=== PATIENT | female | born 1955 | race Caucasian/White ===

== ENCOUNTER 2020-07-18 14:39 | Emergency (ER) | payer MEDICARE, OTHER, SELFPAY ==
[2020-07-18 14:43] VITALS: BP 154/96; PULSE 87; RESP 22; TEMP 37.3; O2SAT 98
[2020-07-18 16:06] VITALS: BP 153/81; PULSE 86; RESP 16; TEMP 37; O2SAT 99
--- NOTE | 2020-07-18 16:07 | ED_ITS ---
HPI - Back Pain/Injury <Dottie Fung MD - Last Filed: 07/18/20 18:06> General Chief Complaint: Back Pain/Injury Stated Complaint: SEVERE PAIN LOWER BACK Time Seen by Provider: 07/18/20 16:07 History of Present Illness HPI Narrative: 65-year-old woman with a history of hypertension presents with left flank and lower quadrant pain. Symptoms began approximately 2 and half days ago in her low back and she attributed this to her chronic back pain. It began to radiate to her flank and then about 7:00 pm last night grew increasingly more painful to the point she was unable to sleep. It now is localizing to the left lower quadrant and giving her a feeling of tenesmus. She notes that she did have a normal bowel movement yesterday morning. She has a history of intermittent diarrhea and constipation. Had a colonoscopy that was unremarkable in 2018. She denies fever, chills, cough, chest pain, dyspnea, orthopnea. She does note vomiting that started last night that seem to be associated with pain. She describes no headache or neurologic symptoms Related Data Home Medications Medication Instructions Recorded Confirmed aspirin 81 mg tablet,delayed 81 mg PO DAILY 07/18/20 07/18/20 release lisinopril 20 mg tablet 20 mg PO DAILY 07/18/20 07/18/20 Previous Rx's Medication Instructions Recorded ciprofloxacin HCl 500 mg PO BID #20 tab 07/18/20 metronidazole [Flagyl] 500 mg PO Q8H #30 tab 07/18/20 oxycodone-acetaminophen 1 tab PO Q6H PRN #10 tab 07/18/20 Allergies Allergy/AdvReac Type Severity Reaction Status Date / Time No Known Drug Allergies Allergy Unverified 07/18/20 10:21 <Theodore Perez DO - Last Filed: 07/18/20 19:55> General Source: patient Review of Systems <Dottie Fung MD - Last Filed: 07/18/20 18:06> Review of Systems Narrative: Remainder of review is otherwise unremarkable except as noted in the HPI Patient History <Dottie Fung MD - Last Filed: 07/18/20 18:06> Medical History (Updated 07/18/20 @ 18:05 by Dottie Fung MD) History of ectopic Hypertension Social History Smoking Status: Former smoker additional social history: QUIT DATE SMOKIN05/07/1998 <Theodore Perez DO - Last Filed: 07/18/20 19:55> Smoking Status: Former smoker alcohol intake frequency: a few times a week Exam <Dottie Fung MD - Last Filed: 07/18/20 18:06> Narrative Exam Narrative: General: Healthy appearing, in no acute distress. Able to give a complete and coherent history. Well-nourished well-developed HEENT: Moist mucous membranes, normal sclera with reactive pupils, Respiratory: Lungs are clear to auscultation, no wheezing no rales no rhonchi. Full and symmetrical air movement Cardiac: Regular rate and rhythm no murmurs no bruits Abdomen: Soft, significantly tender in the left lower quadrant without rebound or guarding, hypoactive bowel tones, no flank pain no paraspinous muscle spasm and no rashes over the lower abdomen or back. Skin: Warm and dry, no rashes Neurologic: Grossly neurologically intact with no obvious asymmetries or abnormalities Extremities: No trauma, well perfused Psych: Cooperative, appropriate insight and affect Initial Vital Signs Initial Vital Signs: Vital Signs Temperature 99.2 F 07/18/20 14:43 Pulse Rate 87 07/18/20 14:43 Respiratory Rate 22 07/18/20 14:43 Blood Pressure 154/96 H 07/18/20 14:43 Pulse Oximetry 98 07/18/20 14:43 <Theodore Perez DO - Last Filed: 07/18/20 19:55> Initial Vital Signs Initial Vital Signs: Vital Signs Temperature 99.2 F 07/18/20 14:43 Pulse Rate 87 07/18/20 14:43 Respiratory Rate 22 07/18/20 14:43 Blood Pressure 154/96 H 07/18/20 14:43 Pulse Oximetry 98 07/18/20 14:43 Course <Dottie Fung MD - Last Filed: 07/18/20 18:06> Orders Ordered: ED Orders 07/18/20 16:25 Complete Blood Count AUTO DIFF Stat Comprehensive Metabolic Panel Stat Lipase Stat Magnesium Stat 07/18/20 16:35 CT abdomen pelvis w con Stat Discontinued Medications Hydromorphone HCl (Hydromorphone 0.5 Mg Inj) 0.5 mg IV Q15MIN PRN PRN Reason: Pain, Last Admin: 07/18/20 16:44 Dose: 0.5 mg Documented by: SHASTA Sodium Chloride (Normal Saline 0.9%) 1,000 mls @ 1,000 mls/hr IV BOLUS ONE Stop: 07/18/20 17:31 Last Infusion: 07/18/20 17:45 Dose: 0 mls/hr Documented by: Admin: 07/18/20 16:44 Dose: 1,000 mls/hr Documented by: SHASTA Levofloxacin (Levaquin) 750 mg in 150 mls @ 100 mls/hr IV NOW ONE Stop: 07/18/20 18:42 Last Infusion: 07/18/20 18:46 Dose: 0 mls/hr Documented by: Admin: 07/18/20 17:22 Dose: 100 mls/hr Documented by: SHASTA Ondansetron HCl (Ondansetron 4 Mg/2 Ml Inj) 4 mg IV NOW ONE Stop: 07/18/20 16:33 Last Admin: 07/18/20 16:44 Dose: 4 mg Documented by: SHASTA Oxycodone/Acetaminophen (Oxycodone/Apap 5/325 Prepack) 1 bottle MISC SEEINSTR ONE Stop: 07/18/20 18:06 Last Admin: 07/18/20 18:09 Dose: 1 bottle Documented by: DONNELL Vital Signs Vital signs: Vital Signs - 8 hr 07/18/20 14:43 07/18/20 16:06 07/18/20 18:00 Temperature 99.2 F 98.6 F Pulse Rate 87 86 80 Respiratory Rate 22 16 16 Blood Pressure 154/96 H 153/81 H 146/72 H Pulse Oximetry 98 99 98 <Theodore Perez DO - Last Filed: 07/18/20 19:55> Orders Ordered: ED Orders 07/18/20 16:25 Complete Blood Count AUTO DIFF Stat Comprehensive Metabolic Panel Stat Lipase Stat Magnesium Stat 07/18/20 16:35 CT abdomen pelvis w con Stat Discontinued Medications Hydromorphone HCl (Hydromorphone 0.5 Mg Inj) 0.5 mg IV Q15MIN PRN PRN Reason: Pain, Last Admin: 07/18/20 16:44 Dose: 0.5 mg Documented by: SHASTA Sodium Chloride (Normal Saline 0.9%) 1,000 mls @ 1,000 mls/hr IV BOLUS ONE Stop: 07/18/20 17:31 Last Infusion: 07/18/20 17:45 Dose: 0 mls/hr Documented by: Admin: 07/18/20 16:44 Dose: 1,000 mls/hr Documented by: SHASTA Levofloxacin (Levaquin) 750 mg in 150 mls @ 100 mls/hr IV NOW ONE Stop: 07/18/20 18:42 Last Infusion: 07/18/20 18:46 Dose: 0 mls/hr Documented by: Admin: 07/18/20 17:22 Dose: 100 mls/hr Documented by: SHASTA Ondansetron HCl (Ondansetron 4 Mg/2 Ml Inj) 4 mg IV NOW ONE Stop: 07/18/20 16:33 Last Admin: 07/18/20 16:44 Dose: 4 mg Documented by: SHASTA Oxycodone/Acetaminophen (Oxycodone/Apap 5/325 Prepack) 1 bottle MISC SEEINSTR ONE Stop: 07/18/20 18:06 Last Admin: 07/18/20 18:09 Dose: 1 bottle Documented by: DONNELL Vital Signs Vital signs: Vital Signs - 8 hr 07/18/20 14:43 07/18/20 16:06 07/18/20 18:00 Temperature 99.2 F 98.6 F Pulse Rate 87 86 80 Respiratory Rate 22 16 16 Blood Pressure 154/96 H 153/81 H 146/72 H Pulse Oximetry 98 99 98 MDM - Back Pain/Injury <Dottie Fung MD - Last Filed: 07/18/20 18:06> Medical Records Attestation: I reviewed the patient's medical records. Lab Data Attestation: I reviewed the patient's lab results. Result diagrams: 07/18/20 16:25 07/18/20 16:25 Labs: Lab Results 07/18/20 07/18/20 07/18/20 Range/Units 16:25 16:25 16:25 WBC 13.7 H (4.5-11.0) X10^3/uL RBC 4.30 (4.0-5.2) X10^6/uL Hgb 14.2 (12.0-16.0) g/dL Hct 42.7 (36-46) % MCV 99.4 (80-100) fL MCH 33.1 (26-34) PG MCHC 33.3 (30-36) % RDW 13.2 (11.6-14.8) % Plt Count 291 (150-400) X10^3/uL Neut % (Auto) 79.5 H (50-75) % Lymph % (Auto) 11.1 L (25-40) % Bladen % (Auto) 9.0 (3-14) % Eos % (Auto) 0.1 L (2-4) % Baso % (Auto) 0.3 (0-2) % Neut # (Auto) 04219 H (1918-9987) /uL Lymph # (Auto) 1500 (7857-8785) /uL Bladen # (Auto) 1200 H (0-900) /uL Eos # (Auto) 0 (0-450) /uL Baso # (Auto) 0 (0-100) /uL Sodium 135 L (137-145) mmol/L Potassium 3.6 (3.4-5.1) mmol/L Chloride 99 (98-107) mmol/L Carbon Dioxide 28 (22-32) mmol/L BUN 23 H (7-17) mg/dL Creatinine 0.63 (0.52-1.04) mg/dL Estimated GFR > 60.0 (>60) mL/min BUN/Creatinine Ratio 36.5 H (6-22) Glucose 107 (80-110) mg/dL Calcium 9.6 (8.4-10.2) mg/dL Magnesium (1.6-2.3) mg/dL Total Bilirubin 0.8 (0.2-1.3) mg/dL AST 21 (14-36) IU/L ALT 14 (<35) IU/L Alkaline Phosphatase 116 (38-126) U/L Total Protein 7.6 (6.3-8.2) g/dL Albumin 4.1 (3.5-5.0) g/dL Globulin 3.5 (1.7-4.1) g/dL Albumin/Globulin Ratio 1.2 (1.0-2.8) Lipase 39 (23-300) U/L 04 Range/Units 16:25 WBC (4.5-11.0) X10^3/uL RBC (4.0-5.2) X10^6/uL Hgb (12.0-16.0) g/dL Hct (36-46) % MCV (80-100) fL MCH (26-34) PG MCHC (30-36) % RDW (11.6-14.8) % Plt Count (150-400) X10^3/uL Neut % (Auto) (50-75) % Lymph % (Auto) (25-40) % Bladen % (Auto) (3-14) % Eos % (Auto) (2-4) % Baso % (Auto) (0-2) % Neut # (Auto) (3979-4776) /uL Lymph # (Auto) (5757-4736) /uL Bladen # (Auto) (0-900) /uL Eos # (Auto) (0-450) /uL Baso # (Auto) (0-100) /uL Sodium (137-145) mmol/L Potassium (3.4-5.1) mmol/L Chloride (98-107) mmol/L Carbon Dioxide (22-32) mmol/L BUN (7-17) mg/dL Creatinine (0.52-1.04) mg/dL Estimated GFR (>60) mL/min BUN/Creatinine Ratio (6-22) Glucose (80-110) mg/dL Calcium (8.4-10.2) mg/dL Magnesium 1.9 (1.6-2.3) mg/dL Total Bilirubin (0.2-1.3) mg/dL AST (14-36) IU/L ALT (<35) IU/L Alkaline Phosphatase (38-126) U/L Total Protein (6.3-8.2) g/dL Albumin (3.5-5.0) g/dL Globulin (1.7-4.1) g/dL Albumin/Globulin Ratio (1.0-2.8) Lipase (23-300) U/L Imaging Data CT scan - abdomen/pelvis: Radiologist's Impression: FINDINGS: Image quality: Excellent. ABDOMEN: Lung bases: Lung bases are clear. Heart size is normal. Solid organs: Liver is normal in size and enhancement. Gallbladder appears normal. Biliary system is non dilated. Pancreas enhances normally. Spleen is normal in size and enhancement. No adrenal nodules. Kidneys demonstrate normal size and enhancement, without hydronephrosis. Peritoneum and bowel: Multiple diverticula are seen in the sigmoid colon. There is bowel wall thickening within the sigmoid colon with mild inflammatory fat stranding along the inferior portion. A multi-septated cystic lesion is seen in the left adnexa adjacent to the inflamed portion of the sigmoid colon measuring 4.7 x 3.9 x 3.4 cm, which may represent reactive inflammation in the left ovary versus a small abscess. No normal appearing left ovary is seen separate from the lesion. There is no pneumoperitoneum. There are no signs of bowel obstruction. The appendix is not definitely visualized, but there are no secondary signs of acute appendicitis. Nodes and vessels: No retroperitoneal or mesenteric adenopathy by size criteria. Aorta and inferior vena cava are normal in size. Miscellaneous: No ventral hernias. PELVIS: Genitourinary: Bladder wall thickness is normal. The uterus is normal in size. The right ovary appears normal. Miscellaneous: No inguinal hernias or adenopathy. Bones: No suspicious bony lesions. No vertebral body compression fractures. IMPRESSION: Acute sigmoid diverticulitis. A multi-septated 4.7 x 3.9 x 3.4 cm lesion in the left adnexa adjacent to the sigmoid colon most likely represents the left ovary (with possible reactive inflammation) versus abscess formation. No pneumoperitoneum. Dictated by: Marshall Capmbell M.D. on 07/18/2020 at 17:25 MDM Narrative Medical decision making narrative: 65-year-old woman with 2 and half days of increasing left lower quadrant pain loading and a sense of tenesmus. Mildly elevated white count. No signs of sepsis. Given the localization of pain to the left lower quadrant I do not suspect that this is simply musculoskeletal back pain. She had no urine in it urine dip at the walk-in clinic so kidney stone is less likely. No UTI or pyelonephritis. Most likely explanation for her symptoms is diverticulitis. Will start her on Levaquin while waiting for confirmatory CT scan. CT scan does confirm diverticulitis. There is also an interesting mention of a multi-septated lesion in the left adnexa. This will need follow-up and have reviewed with patient. She will be discharged home with a small course of pain medication, Flagyl and Cipro. <Theodore Perez DO - Last Filed: 07/18/20 19:55> Lab Data Labs: Lab Results 07/18/20 07/18/20 07/18/20 Range/Units 16:25 16:25 16:25 WBC 13.7 H (4.5-11.0) X10^3/uL RBC 4.30 (4.0-5.2) X10^6/uL Hgb 14.2 (12.0-16.0) g/dL Hct 42.7 (36-46) % MCV 99.4 (80-100) fL MCH 33.1 (26-34) PG MCHC 33.3 (30-36) % RDW 13.2 (11.6-14.8) % Plt Count 291 (150-400) X10^3/uL Neut % (Auto) 79.5 H (50-75) % Lymph % (Auto) 11.1 L (25-40) % Bladen % (Auto) 9.0 (3-14) % Eos % (Auto) 0.1 L (2-4) % Baso % (Auto) 0.3 (0-2) % Neut # (Auto) 80007 H (2981-8765) /uL Lymph # (Auto) 1500 (8325-8115) /uL Bladen # (Auto) 1200 H (0-900) /uL Eos # (Auto) 0 (0-450) /uL Baso # (Auto) 0 (0-100) /uL Sodium 135 L (137-145) mmol/L Potassium 3.6 (3.4-5.1) mmol/L Chloride 99 (98-107) mmol/L Carbon Dioxide 28 (22-32) mmol/L BUN 23 H (7-17) mg/dL Creatinine 0.63 (0.52-1.04) mg/dL Estimated GFR > 60.0 (>60) mL/min BUN/Creatinine Ratio 36.5 H (6-22) Glucose 107 (80-110) mg/dL Calcium 9.6 (8.4-10.2) mg/dL Magnesium (1.6-2.3) mg/dL Total Bilirubin 0.8 (0.2-1.3) mg/dL AST 21 (14-36) IU/L ALT 14 (<35) IU/L Alkaline Phosphatase 116 (38-126) U/L Total Protein 7.6 (6.3-8.2) g/dL Albumin 4.1 (3.5-5.0) g/dL Globulin 3.5 (1.7-4.1) g/dL Albumin/Globulin Ratio 1.2 (1.0-2.8) Lipase 39 (23-300) U/L 07/18/20 Range/Units 16:25 WBC (4.5-11.0) X10^3/uL RBC (4.0-5.2) X10^6/uL Hgb (12.0-16.0) g/dL Hct (36-46) % MCV (80-100) fL MCH (26-34) PG MCHC (30-36) % RDW (11.6-14.8) % Plt Count (150-400) X10^3/uL Neut % (Auto) (50-75) % Lymph % (Auto) (25-40) % Bladen % (Auto) (3-14) % Eos % (Auto) (2-4) % Baso % (Auto) (0-2) % Neut # (Auto) (5651-2307) /uL Lymph # (Auto) (3817-5145) /uL Bladen # (Auto) (0-900) /uL Eos # (Auto) (0-450) /uL Baso # (Auto) (0-100) /uL Sodium (137-145) mmol/L Potassium (3.4-5.1) mmol/L Chloride (98-107) mmol/L Carbon Dioxide (22-32) mmol/L BUN (7-17) mg/dL Creatinine (0.52-1.04) mg/dL Estimated GFR (>60) mL/min BUN/Creatinine Ratio (6-22) Glucose (80-110) mg/dL Calcium (8.4-10.2) mg/dL Magnesium 1.9 (1.6-2.3) mg/dL Total Bilirubin (0.2-1.3) mg/dL AST (14-36) IU/L ALT (<35) IU/L Alkaline Phosphatase (38-126) U/L Total Protein (6.3-8.2) g/dL Albumin (3.5-5.0) g/dL Globulin (1.7-4.1) g/dL Albumin/Globulin Ratio (1.0-2.8) Lipase (23-300) U/L Discharge Plan Departure Patient Disposition: Home Clinical Impression: Diverticulitis, Adnexal cyst Instructions: DI for Diverticulitis Activity Restrictions/Additional Instructions: Thank you for coming in today You do in fact have diverticulitis. We started you with a 24 hour antibiotic, Levaquin. You do need to pickle maker both the Cipro and the Flagyl, both antibiotics and complete 10 days of both You can use 1-2 Percocet every 6 hours as needed for severe pain. Please note that this can cause constipation which can make the diverticulitis a bit worse. Use stool softeners if necessary. The CT scan mentioned and adnexal cystic abnormality'this is in the area around her ovary and side of the uterus. This may be related to the diverticulitis but it is a bit unusual. It will need follow-up with a pelvic ultrasound once the diverticulitis is completely cleared. Please talk to your primary care doctor about this. If you have worsening pain, fevers inability to have a bowel movement at all or new or developing symptoms please feel free to return to the emergency department Prescriptions: New metronidazole [Flagyl] 500 mg tablet 500 mg PO Q8H Qty: 30 RF: 0 ciprofloxacin HCl 500 mg tablet 500 mg PO BID Qty: 20 RF: 0 oxycodone-acetaminophen 5-325 mg tablet 1 tab PO Q6H PRN (Reason: pain) Qty: 10 RF: 0 No Action lisinopril 20 mg tablet 20 mg PO DAILY RF: 0 aspirin [Adult Low Dose Aspirin] 81 mg tablet,delayed release (DR/EC) 81 mg PO DAILY RF: 0 Referrals: Isabela Walker PA-C [Primary Care Provider] -
--- NOTE | 2020-07-18 16:35 | DI.CT.S_ITS ---
PROCEDURE: CT ABDOMEN PELVIS W CON INDICATIONS: RLQ pain TECHNIQUE: After the administration of intravenous contrast, 5 mm thick sections acquired from the diaphragm to the symphysis. 5 mm coronal and sagittal reformats were acquired. For radiation dose reduction, the following was used: automated exposure control, adjustment of mA and/or kV according to patient size. COMPARISON: None. FINDINGS: Image quality: Excellent. ABDOMEN: Lung bases: Lung bases are clear. Heart size is normal. Solid organs: Liver is normal in size and enhancement. Gallbladder appears normal. Biliary system is non dilated. Pancreas enhances normally. Spleen is normal in size and enhancement. No adrenal nodules. Kidneys demonstrate normal size and enhancement, without hydronephrosis. Peritoneum and bowel: Multiple diverticula are seen in the sigmoid colon. There is bowel wall thickening within the sigmoid colon with mild inflammatory fat stranding along the inferior portion. A multi-septated cystic lesion is seen in the left adnexa adjacent to the inflamed portion of the sigmoid colon measuring 4.7 x 3.9 x 3.4 cm, which may represent reactive inflammation in the left ovary versus a small abscess. No normal appearing left ovary is seen separate from the lesion. There is no pneumoperitoneum. There are no signs of bowel obstruction. The appendix is not definitely visualized, but there are no secondary signs of acute appendicitis. Nodes and vessels: No retroperitoneal or mesenteric adenopathy by size criteria. Aorta and inferior vena cava are normal in size. Miscellaneous: No ventral hernias. PELVIS: Genitourinary: Bladder wall thickness is normal. The uterus is normal in size. The right ovary appears normal. Miscellaneous: No inguinal hernias or adenopathy. Bones: No suspicious bony lesions. No vertebral body compression fractures. IMPRESSION: Acute sigmoid diverticulitis. A multi-septated 4.7 x 3.9 x 3.4 cm lesion in the left adnexa adjacent to the sigmoid colon most likely represents the left ovary (with possible reactive inflammation) versus abscess formation. No pneumoperitoneum. Dictated by: Marshall Campbell M.D. on 07/18/2020 at 17:25 Approved by: Marshall Cambpell M.D. on 07/18/2020 at 17:34
[2020-07-18] MEDS: HYDROMORPHONE 0.5 MG INJ IV (16:44)
[2020-07-18] MEDS: ONDANSETRON 4 MG/2 ML INJ IV (16:44)
[2020-07-18] MEDS: SODIUM CHLORIDE 0.9% 1,000 ML 1000 ML IV (16:44)
[2020-07-18 16:46] LABS: Add Manual Diff / Slide Review NO; Basophils Absolute Auto 0 /uL (0-100); Basophils Percent Auto 0.3 % (0-2); Eosinophils Absolute Auto 0 /uL (0-450); Eosinophils Percent Auto 0.1 % (2-4); Hematocrit 42.7 % (36-46); Hemoglobin 14.2 g/dL (12.0-16.0); Lymphocytes Absolute Auto 1500 /uL (1100-4500); Lymphocytes Percent Auto 11.1 % (25-40); Mean Corpuscular HGB Conc 33.3 % (30-36); Mean Corpuscular Hemoglobin 33.1 PG (26-34); Mean Corpuscular Volume 99.4 fL (80-100); Monocytes Absolute Auto 1200 /uL (0-900); Neutrophils Absolute Auto 10900 /uL (1500-7000); Neutrophils Percent Auto 79.5 % (50-75); Platelet Count 291 X10^3/uL (150-400); Red Cell Distribution Width 13.2 % (11.6-14.8); White Blood Cell Count 13.7 X10^3/uL (4.5-11.0)
[2020-07-18 16:51] LABS: Alanine Aminotransferase 14 IU/L (<35); Albumin 4.1 g/dL (3.5-5.0); Albumin Globulin Ratio 1.2 (1.0-2.8); Alkaline Phosphatase 116 U/L (38-126); Aspartate Aminotransferase 21 IU/L (14-36); BUN Creatinine Ratio 36.5 (6-22); Bilirubin Total 0.8 mg/dL (0.2-1.3); Blood Urea Nitrogen 23 mg/dL (7-17); Calcium 9.6 mg/dL (8.4-10.2); Carbon Dioxide 28 mmol/L (22-32); Chloride 99 mmol/L (98-107); Estimated Glomerular Filt Rate > 60.0 mL/min (>60); Globulin 3.5 g/dL (1.7-4.1); Glucose 107 mg/dL (80-110); HEMOLYSIS < 15 (0-50); Potassium 3.6 mmol/L (3.4-5.1); Sodium 135 mmol/L (137-145); Total Protein 7.6 g/dL (6.3-8.2)
[2020-07-18 16:58] LABS: Lipase 39 U/L (23-300)
[2020-07-18 16:59] LABS: Magnesium 1.9 mg/dL (1.6-2.3)
[2020-07-18] MEDS: levoFLOXacin 750 MG/150 ML PIGGYBACK 100 MG IV (17:22)
[2020-07-18 18:00] VITALS: BP 146/72; PULSE 80; RESP 16; O2SAT 98
[2020-07-18] MEDS: OXYCODONE/APAP 5/325 PREPACK 1 BOTTLE MISC (18:09)
== END 2020-07-18 18:54 | disposition home or self-care (01) ==
PROVIDERS: Emergency Provider Emergency Medicine; PCP Physician Assistant
DX: K57.92 Diverticulitis of intestine, part unspecified, without perforation or abscess without bleeding (principal); N94.9 Unspecified condition associated with female genital organs and menstrual cycle; M54.5 Low back pain
CPT/HCPCS: 36415; 74177; 80053; 83690; 83735; 85025; 87086; 99284; J1170; J1956; J2405; Q9967

== ENCOUNTER → 2020-08-01 10:49 | Outpatient (CLI) | payer MEDICARE, OTHER, SELFPAY ==
--- NOTE | 2020-08-01 10:52 | DI.US.S_ITS ---
PROCEDURE: US PELVIC COMPLETE INDICATIONS: LEFT ADNEXAL CYST ON RECENT CT TECHNIQUE: Real-time scanning was performed of the pelvic organs, with image documentation. Additional endovaginal scanning was necessary due to incomplete visualization of the adnexal and endometrial structures by transabdominal scanning. COMPARISON: [facility], CT, CT ABDOMEN PELVIS W CON, 07/18/2020, 17:00. FINDINGS: Uterus: Uterus is normal in size at 5.6 x 3 x 3.7 cm. The endometrial stripe is abnormal, with an apparent irregular echogenic mass that measures 18 x 15 x 17 mm. Shadowing can be seen. Ovaries: The right ovary measures 1.8 x 1.2 x 0.9 cm. The left ovary measures 2.4 x 1.9 x 2 cm. The ovaries have a normal sonographic appearance. No adnexal masses are seen. The previously seen left adnexal mass is not appreciated on the current study. Other: No pathologic free abdominal or pelvic fluid. IMPRESSION: The previously seen left adnexal mass seen by CT is not appreciated on these images. Within the endometrial stripe, there is an irregular mass with shadowing. While this may be related to a fibroid, differential diagnosis also includes a uterine or endometrial mass. If it would be helpful for clinical management decision making, please consider a dedicated gynecological protocol MRI (without and with contrast) for further evaluation (assuming that there is no contraindication). Dictated by: Rick Hastings M.D. on 08/01/2020 at 10:47 Approved by: Rick Hastings M.D. on 08/01/2020 at 10:49
[2020-08-01 11:52] LABS: Add Manual Diff / Slide Review NO; Basophils Absolute Auto 100 /uL (0-100); Basophils Percent Auto 0.9 % (0-2); Eosinophils Absolute Auto 100 /uL (0-450); Eosinophils Percent Auto 0.9 % (2-4); Hematocrit 41.1 % (36-46); Hemoglobin 14.1 g/dL (12.0-16.0); Lymphocytes Absolute Auto 2400 /uL (1100-4500); Lymphocytes Percent Auto 26.2 % (25-40); Mean Corpuscular HGB Conc 34.2 % (30-36); Mean Corpuscular Hemoglobin 33.5 PG (26-34); Mean Corpuscular Volume 97.8 fL (80-100); Monocytes Absolute Auto 700 /uL (0-900); Monocytes Percent Auto 7.8 % (3-14); Neutrophils Absolute Auto 5800 /uL (1500-7000); Neutrophils Percent Auto 64.2 % (50-75); Platelet Count 313 X10^3/uL (150-400); Red Cell Distribution Width 12.9 % (11.6-14.8)
[2020-08-01 12:32] LABS: Alanine Aminotransferase 20 IU/L (<35); Albumin Globulin Ratio 1.2 (1.0-2.8); Alkaline Phosphatase 85 U/L (38-126); Aspartate Aminotransferase 28 IU/L (14-36); Bilirubin Total 0.3 mg/dL (0.2-1.3); Blood Urea Nitrogen 21 mg/dL (7-17); Calcium 9.7 mg/dL (8.4-10.2); Carbon Dioxide 28 mmol/L (22-32); Chloride 96 mmol/L (98-107); Estimated Glomerular Filt Rate > 60.0 mL/min (>60); Globulin 3.4 g/dL (1.7-4.1); Glucose 112 mg/dL (80-110); HEMOLYSIS < 15 (0-50); Potassium 4.1 mmol/L (3.4-5.1); Sodium 133 mmol/L (137-145); Total Protein 7.4 g/dL (6.3-8.2)
[2020-08-01 13:01] LABS: Cancer Antigen 125 9.1 U/mL (0-35)
== END ==
PROVIDERS: PCP Physician Assistant; Referring Provider Specialist; Visit Provider Specialist
DX: R93.89 Abnormal findings on diagnostic imaging of other specified body structures (principal); N94.9 Unspecified condition associated with female genital organs and menstrual cycle; I10 Essential (primary) hypertension; N94.89 Other specified conditions associated with female genital organs and menstrual cycle; K57.92 Diverticulitis of intestine, part unspecified, without perforation or abscess without bleeding
CPT/HCPCS: 36415; 76830; 76856; 80053; 85025; 86304; 86305

== ENCOUNTER → 2020-09-05 11:12 | Outpatient (CLI) | payer MEDICARE, OTHER, SELFPAY ==
[2020-09-05 11:45] LABS: COVID19 -Nasal RAPID Negative (Negative)
== END ==
PROVIDERS: PCP Physician Assistant; Visit Provider Specialist
DX: Z20.822 Contact with and (suspected) exposure to COVID-19 (principal); Z01.812 Encounter for preprocedural laboratory examination
CPT/HCPCS: 87635; C9803

== ENCOUNTER 2020-09-05 11:28 | Day surgery (SDC) | payer MEDICARE, OTHER, SELFPAY ==
[2020-08-31 10:54] VITALS: BMI 28.5
[2020-09-05] VITALS (8 sets, daily range): BP systolic 127–158; BP diastolic 75–90; PULSE 82–97; RESP 12–16; TEMP 37.2–37.4; O2SAT 93–100; BMI 28.5
--- NOTE | 2020-09-05 | PATH_ITS ---
[facility] Accession Number: [id number] . 01 Material submitted: . PART A: endometrium - ENDOMETRIAL MASS PART B: endometrium - ENDOMETRIAL CURETTINGS . 02 Diagnosis: A. Endometrial Mass: Portions of endometrium with features of cystic atrophy; negative for glandular hyperplasia, cytologic atypia, or malignancy. The majority of endometrial tissue fragments also have attached myometrium; negative for atypia or malignancy. These histologic findings are consistent with the presence of a benign leiomyoma, in the appropriate clinical setting. . B. Endometrial Curettings: Avulsed portions of squamous mucosa; negative for squamous dysplasia or malignancy. Poorly preserved glandular elements, possibly from endocervix or lower uterine segment; negative for glandular hyperplasia, glandular dysplasia, cytologic atypia, or malignancy. Please see comment. [facility] 09/08/2020 1226 Local . 02 Comment: Part B: Due to the scant nature of endometrial tissue in this biopsy, it may not be entirely labor union business representative of this patient's endometrium; additional sampling could be considered, if clinically appropriate. . 02 Electronically signed: . Patricia Dominguez MD, Pathologist NPI- [id number] . 01 Gross description: . A. Received in formalin, labeled endometrial mass and consists of multiple amador-pink partially cauterized fragments of soft tissue measuring 3.0 x 2.0 x 0.5 cm in aggregate. The specimen is entirely submitted in cassette A1. B. Received in formalin, labeled endometrial curettings and consists of multiple amador-pink fragments of soft tissue measuring 1.0 x 0.5 x 0.2 cm in aggregate. The specimen is filtered and entirely submitted in cassette B1. ([id number]) /MRV 09/06/2020 1028 Local . 02 Pathologist provided ICD-10: D25.9, N85.00 . 02 CPT . 791502, [id number] Performed at: 01 [facility] [address] [id number] MD Ismael Oscar MD Phone: [phone] Performed at: [id number] [place], [place] [id number] MD Deedee Montana MD Phone: [phone]
[2020-09-05] MEDS: LACTATED RINGERS 1,000 ML 100 ML IV (12:12)
--- NOTE | 2020-09-05 13:27 | PM.PREOP ---
Pre-operative Note COVID-19 COVID-19 status: Negative Result date/Date tested (Pos, Neg/Pending): 09/05/20 Interval Note History & Physical reviewed/Exam performed by Physician: Yes Changes to H&P: No
--- NOTE | 2020-09-05 13:50 | SUR.OPER ---
Lithotomy on padded OR bed, head on pillow, arms secured on padded arm boards at <90 degrees abduction. Legs secured in padded yellow fins stirrups.
--- NOTE | 2020-09-05 14:08 | PM.OP.1 ---
Operative Date/Time/Diagnoses Date of procedure: 09/05/20 Time of procedure: 14:08 Pre-op diagnosis: Thickened endometrium on ultrasound Post-op diagnosis: same Procedure & Clinicians Procedure: Hysteroscopy with resection of endometrial mass and D&C Same procedure as scheduled: Yes Indications: Thickened endometrium on ultrasound Surgeon: Tracie Rowan Click Yes if Unassisted: Yes Anesthesia Type: General Operative Notes Findings: 1-1/2 to 2 cm intracavitary mass cystic and solid structure, thin endometrium otherwise, normal exam under anesthesia Closure Type: not applicable Specimen(s): other (Intracavitary mass and endometrial curettage) Estimated Blood Loss (mL): 1 Blood products transfused: none Procedure in detail: The patient was brought to the operating room where she underwent general anesthesia. She was placed in low stirrups She was prepped and draped in usual sterile fashion with pulsatile stockings in place and functional, warming in place. A check system was reviewed with the staff in the room prior to beginning the case. Her bladder was drained with in and out catheter. A single-tooth tenaculum was placed on the anterior lip of the cervix and the uterus dilated to #8 Hegar dilator. The hysteroscope was placed into the uterus with a sorbitol solution running and under constant suction. The resecting loop set at 80 W of cutting was used to resect the mass down to the level of the endometrium. A endometrial curettage was performed. The mass and the endometrial curettage was sent to pathology. The patient went to recovery room in good condition counts of instruments and sponges were correct. The sorbitol solution I=O approximately 1000 mL. Complications: none Post-operative Condition: stable Disposition: same day surgery Plan for aftercare: Home when awake and stable. Treatment and follow-up based on biopsy results.
[2020-09-05] MEDS: KETOROLAC 30 MG/ML VIAL IV (14:17)
[2020-09-05] MEDS: ACETAMINOPHEN 325 MG TABLET 975 MG PO (14:21)
[2020-09-05] MEDS: OXYCODONE IR 5 MG TABLET PO (14:39)
== END 2020-09-05 15:10 | disposition home or self-care (01) ==
PROVIDERS: PCP Physician Assistant; Referring Provider Specialist; Visit Provider Specialist
PROC: 0UDB8ZZ Extraction of Endometrium, Via Natural or Artificial Opening Endoscopic (ICD-10-PCS; CPT 58558; principal; 2020-09-05 13:30)
DX: R93.89 Abnormal findings on diagnostic imaging of other specified body structures (principal); I10 Essential (primary) hypertension
CPT/HCPCS: 58558; J1885; J2250; J2405; J2704; J3010

== ENCOUNTER 2020-09-12 15:46 | Inpatient (IN) | payer MEDICARE, OTHER, SELFPAY ==
[2020-09-12 15:54] VITALS: BP 148/80; PULSE 95; RESP 22; TEMP 36.8; O2SAT 98
[2020-09-12 16:13] LABS: Add Manual Diff / Slide Review NO; Basophils Absolute Auto 100 /uL (0-100); Basophils Percent Auto 0.6 % (0-2); Eosinophils Absolute Auto 0 /uL (0-450); Eosinophils Percent Auto 0.2 % (2-4); Hematocrit 37.4 % (36-46); Hemoglobin 12.6 g/dL (12.0-16.0); Lymphocytes Absolute Auto 2600 /uL (1100-4500); Lymphocytes Percent Auto 13.9 % (25-40); Mean Corpuscular HGB Conc 33.6 % (30-36); Mean Corpuscular Hemoglobin 32.2 PG (26-34); Mean Corpuscular Volume 95.7 fL (80-100); Monocytes Absolute Auto 1800 /uL (0-900); Monocytes Percent Auto 9.4 % (3-14); Neutrophils Absolute Auto 14300 /uL (1500-7000); Neutrophils Percent Auto 75.9 % (50-75); Platelet Count 498 X10^3/uL (150-400); Red Blood Cell Count 3.91 X10^6/uL (4.0-5.2); Red Cell Distribution Width 12.7 % (11.6-14.8); White Blood Cell Count 18.8 X10^3/uL (4.5-11.0)
[2020-09-12 16:26] LABS: Alanine Aminotransferase 21 IU/L (<35); Albumin Globulin Ratio 1.1 (1.0-2.8); Alkaline Phosphatase 157 U/L (38-126); Aspartate Aminotransferase 25 IU/L (14-36); BUN Creatinine Ratio 26.3 (6-22); Bilirubin Total 0.6 mg/dL (0.2-1.3); Blood Urea Nitrogen 31 mg/dL (7-17); Calcium 9.5 mg/dL (8.4-10.2); Carbon Dioxide 29 mmol/L (22-32); Chloride 96 mmol/L (98-107); Globulin 3.6 g/dL (1.7-4.1); Glucose 104 mg/dL (80-110); HEMOLYSIS < 15 (0-50); Lipase 52 U/L (23-300); Potassium 3.8 mmol/L (3.4-5.1); Sodium 134 mmol/L (137-145); Total Protein 7.6 g/dL (6.3-8.2)
--- NOTE | 2020-09-12 16:28 | ED_ITS ---
HPI - General Adult General Chief complaint: Abdominal Pain Stated complaint: stomach issues, can't poop Time Seen by Provider: 09/12/20 16:01 Source: patient Mode of arrival: Ambulatory Limitations: no limitations History of Present Illness HPI narrative: Patient is a 65-year-old female. Approximately 2 months ago she was seen in this emergency department and diagnosed with sigmoid diverticulitis. Was sent home on Cipro and Flagyl. She completed the course of this antibiotics as stated that her symptoms did improve. There were also other incidental findings noted on that CT scan for which she has had follow-up. She has had a follow-up abdominal ultrasound and also an endometrial biopsy. Stated that the biopsy occurred approximately 10 days ago. Shortly afterwards she started to have worsening generalized abdominal discomfort that felt like her prior diagnosis of diverticulitis. She also states that she has felt constipated. Increased her fiber intake and then had loose stools which she stated made her abdominal pain worse. She also states that every time she eats or drinks anything her belly pain gets worse. Related Data Home Medications Medication Instructions Recorded Confirmed aspirin 81 mg tablet,delayed 81 mg PO DAILY 07/18/20 09/12/20 release lisinopril 20 mg tablet 20 mg PO DAILY 07/18/20 09/12/20 naproxen sodium [Aleve] 220 mg PO BID PRN 09/05/20 09/12/20 Allergies Allergy/AdvReac Type Severity Reaction Status Date / Time No Known Drug Allergies Allergy Verified 09/05/20 12:14 Review of Systems Constitutional Constitutional: Denies fever(s) Cardiovascular Cardiovascular: Denies chest pain and Denies dyspnea Respiratory Respiratory: Denies dyspnea Gastrointestinal Gastrointestinal: Reports abdominal pain, Reports constipation and Reports nausea Genitourinary Genitourinary: Denies dysuria Genitourinary: Denies abnormal vaginal bleeding and Denies dysuria Musculoskeletal Musculoskeletal: Denies myalgias Integumentary/Breasts Skin/Breast: Denies rash Neurologic Neurologic: Reports system reviewed and no additional complaints, except as documented Hematologic/Lymphatic On Anticoagulants: No Allergic/Immunologic Allergic/Immunologic: Reports system reviewed and no additional complaints, except as documented Patient History Medical History Colon polyps (~2017) Hearing loss Hypertension Measles (~1961) Uterine infection (~1977) Vision disorder Surgical History (Updated 09/10/20 @ 18:19 by Kandice Charles) Anesthesia History of ectopic Family History (Updated 09/10/20 @ 18:22 by Kandice Charles) Father Cancer Mother History of heart disease Brother Diabetes mellitus History of heart disease Liver disease Grandfather History of heart attack Social History household members: spouse Smoking Status: Former smoker alcohol intake: current additional social history: QUIT DATE SMOKIN05/07/1998 Smoking Status: Former smoker alcohol intake frequency: a few times a week Exam Initial Vital Signs Initial Vital Signs: Vital Signs Temperature 98.2 F 09/12/20 15:54 Pulse Rate 95 H 09/12/20 15:54 Respiratory Rate 22 09/12/20 15:54 Blood Pressure 148/80 H 09/12/20 15:54 Pulse Oximetry 98 09/12/20 15:54 Const General: cooperative, comfortable and well developed Limitations: mental status not altered HENMT Head: normal to inspection and normocephalic Resp Effort & Inspection: normal respiratory effort Auscultation: clear to auscultation bilaterally Cardio Rate: regular rate Rhythm: regular rhythm GI Inspection: non-distended Palpation: soft and tender (Generalized tenderness) Skin Lesions: no lesions Rashes: no rashes Neuro General: patient alert, patient awake and patient oriented x3 Cognition: normal cognition Speech: speech normal Extrem General: normal to inspection and capillary refill normal Psych Appearance: grossly normal and well kempt Course Orders Ordered: ED Orders 09/12/20 16:00 Complete Blood Count AUTO DIFF Stat Comprehensive Metabolic Panel Stat Lactate (Lactic Acid) Stat Lipase Stat 09/12/20 16:20 Urine Microscopic Stat 09/12/20 16:34 CT abdomen pelvis w con Stat 09/12/20 16:59 COVID19 - ADMIT ([employer] TE[employer]ER swab/PCR) Stat Sodium Chloride (Normal Saline 0.9%) 1,000 mls @ 125 mls/hr IV CONT ANGELA Discontinued Medications Sodium Chloride (Normal Saline 0.9%) 1,000 mls @ 1,000 mls/hr IV BOLUS ONE Stop: 09/12/20 17:33 Last Admin: 09/12/20 17:12 Dose: 1,000 mls/hr Documented by: [email or web address] Piperacillin Sod/Tazobactam (Sod 4.5 gm/ Sodium Chloride) 100 mls @ 200 mls/hr IV NOW ONE Stop: 09/12/20 16:59 Last Admin: 09/12/20 17:14 Dose: 200 mls/hr Documented by: CHICHO Morphine Sulfate (Morphine 4 Mg/Ml Inj) 4 mg IV NOW ONE Stop: 09/12/20 17:02 Last Admin: 09/12/20 17:10 Dose: 4 mg Documented by: CHICHO Vital Signs Vital signs: Vital Signs - 8 hr 09/12/20 15:54 Temperature 98.2 F Pulse Rate 95 H Respiratory Rate 22 Blood Pressure 148/80 H Pulse Oximetry 98 Medical Decision Making Medical Records Medical records reviewed: Yes I reviewed the patient's medical records. Lab Data Lab results reviewed: Yes I reviewed the patient's lab results. Result diagrams: 09/12/20 16:00 09/12/20 16:00 Labs: Lab Results 09/12/20 09/12/20 09/12/20 Range/Units 16:00 16:00 16:00 WBC 18.8 H (4.5-11.0) X10^3/uL RBC 3.91 L (4.0-5.2) X10^6/uL Hgb 12.6 (12.0-16.0) g/dL Hct 37.4 (36-46) % MCV 95.7 (80-100) fL MCH 32.2 (26-34) PG MCHC 33.6 (30-36) % RDW 12.7 (11.6-14.8) % Plt Count 498 H (150-400) X10^3/uL Neut % (Auto) 75.9 H (50-75) % Lymph % (Auto) 13.9 L (25-40) % [place] % (Auto) 9.4 (3-14) % Eos % (Auto) 0.2 L (2-4) % Baso % (Auto) 0.6 (0-2) % Neut # (Auto) 39611 H (1713-5315) /uL Lymph # (Auto) 2600 (1960-8015) /uL [place] # (Auto) 1800 H (0-900) /uL Eos # (Auto) 0 (0-450) /uL Baso # (Auto) 100 (0-100) /uL Sodium 134 L (137-145) mmol/L Potassium 3.8 (3.4-5.1) mmol/L Chloride 96 L (98-107) mmol/L Carbon Dioxide 29 (22-32) mmol/L BUN 31 H (7-17) mg/dL Creatinine 1.18 H (0.52-1.04) mg/dL Estimated GFR 46.0 L (>60) mL/min BUN/Creatinine Ratio 26.3 H (6-22) Glucose 104 (80-110) mg/dL Lactate 0.8 (0.7-2.1) mmol/L Calcium 9.5 (8.4-10.2) mg/dL Total Bilirubin 0.6 (0.2-1.3) mg/dL AST 25 (14-36) IU/L ALT 21 (<35) IU/L Alkaline Phosphatase 157 H (38-126) U/L Total Protein 7.6 (6.3-8.2) g/dL Albumin 4.0 (3.5-5.0) g/dL Globulin 3.6 (1.7-4.1) g/dL Albumin/Globulin Ratio 1.1 (1.0-2.8) Lipase 52 (23-300) U/L Urine RBC (0-5/HPF) Urine WBC (0-5/HPF) Ur Squamous Epith Cells (0-5/HPF) Urine Bacteria (None) Hyaline Casts (None) Ur Culture Indicated? 09/12/20 Range/Units 16:20 WBC (4.5-11.0) X10^3/uL RBC (4.0-5.2) X10^6/uL Hgb (12.0-16.0) g/dL Hct (36-46) % MCV (80-100) fL MCH (26-34) PG MCHC (30-36) % RDW (11.6-14.8) % Plt Count (150-400) X10^3/uL Neut % (Auto) (50-75) % Lymph % (Auto) (25-40) % [place] % (Auto) (3-14) % Eos % (Auto) (2-4) % Baso % (Auto) (0-2) % Neut # (Auto) (0728-8963) /uL Lymph # (Auto) (5157-6007) /uL [place] # (Auto) (0-900) /uL Eos # (Auto) (0-450) /uL Baso # (Auto) (0-100) /uL Sodium (137-145) mmol/L Potassium (3.4-5.1) mmol/L Chloride (98-107) mmol/L Carbon Dioxide (22-32) mmol/L BUN (7-17) mg/dL Creatinine (0.52-1.04) mg/dL Estimated GFR (>60) mL/min BUN/Creatinine Ratio (6-22) Glucose (80-110) mg/dL Lactate (0.7-2.1) mmol/L Calcium (8.4-10.2) mg/dL Total Bilirubin (0.2-1.3) mg/dL AST (14-36) IU/L ALT (<35) IU/L Alkaline Phosphatase (38-126) U/L Total Protein (6.3-8.2) g/dL Albumin (3.5-5.0) g/dL Globulin (1.7-4.1) g/dL Albumin/Globulin Ratio (1.0-2.8) Lipase (23-300) U/L Urine RBC 0-1/hpf (0-5/HPF) Urine WBC 0-1/hpf (0-5/HPF) Ur Squamous Epith Cells 1-5 /hpf (0-5/HPF) Urine Bacteria None seen (None) Hyaline Casts 5-10/lpf (None) Ur Culture Indicated? Cult not indicated Urine Dip Bedside Urine Glucose Negative Bedside Urine Bilirubin - Negative Bedside Urine Ketone +/- 5 Urine Specific [place] 1.030 Bedside Urine Occult Blood - Negative Bedside Urine pH 6.0 Bedside Urine Protein +/- 15 Bedside Urine Urobilinogen - Negative Bedside Urine Nitrite - Negative Bedside Urine Leukocytes - Negative Esterase Point of care testing: Urine Dip Bedside Urine Glucose Negative Bedside Urine Bilirubin - Negative Bedside Urine Ketone +/- 5 Urine Specific [place] 1.030 Bedside Urine Occult Blood - Negative Bedside Urine pH 6.0 Bedside Urine Protein +/- 15 Bedside Urine Urobilinogen - Negative Bedside Urine Nitrite - Negative Bedside Urine Leukocytes - Negative Esterase MDM Narrative Medical decision making narrative: Patient does have a leukocytosis with a left shift. Lactate unremarkable. Urine is unremarkable. CT scan today does show diverticulitis now with multiple abscesses. This does correspond to her presenting symptoms. She was given Zosyn. Discussed the case with Dr. Brasher with General surgery who will admit for further evaluation treatment. Discussed the findings of the CT scan with the patient and the need for admission and she also expressed understanding agreement. Discharge Plan Departure Patient Disposition: Admitted As Inpatient Clinical Impression: Diverticulitis of intestine with abscess
--- NOTE | 2020-09-12 16:34 | DI.CT.S_ITS ---
PROCEDURE: CT ABDOMEN PELVIS W CON INDICATIONS: History of diverticulitis, worsening symptoms, leukocytosis TECHNIQUE: After the administration of intravenous contrast, 5 mm thick sections acquired from the diaphragm to the symphysis. 5 mm coronal and sagittal reformats were acquired. For radiation dose reduction, the following was used: automated exposure control, adjustment of mA and/or kV according to patient size. COMPARISON: [facility], CT, CT ABDOMEN PELVIS W CON, 07/18/2020, 17:00. FINDINGS: Image quality: Excellent. ABDOMEN: Lung bases: Lung bases are clear. Heart size is normal. Solid organs: Liver is normal in size and enhancement. Gallbladder is within normal limits. Biliary system is non dilated. Pancreas enhances normally. Spleen is normal in size and enhancement. No adrenal nodules. Kidneys demonstrate normal size and enhancement, without hydronephrosis. Peritoneum and bowel: Small hiatal hernia. Stomach and small bowel are grossly unremarkable. Appendix is normal. Colon is nondistended. Diverticulosis of the distal transverse colon, descending, and sigmoid colon is present. There is moderate thickening and mild surrounding fat stranding involving the sigmoid colon. There is a increased multi locular septated fluid collection at the inferolateral aspect of the mid sigmoid colon within the left adnexal region, measuring roughly 70 mm transverse by 70 mm craniocaudal by 70 mm transverse. This fluid collection contains a small amount of gas and partially encases the left distal iliac artery and vein. No free fluid or air. Nodes and vessels: No retroperitoneal or mesenteric adenopathy by size criteria. Aorta and inferior vena cava are normal in size. Miscellaneous: No ventral hernias. PELVIS: Genitourinary: Bladder wall thickness is normal. Miscellaneous: No inguinal hernias or adenopathy. Bones: No suspicious bony lesions. No vertebral body compression fractures. IMPRESSION: 1. Multiloculated pericolonic abscess containing a small amount of gas, consistent with diverticulitis sequelae. There is vascular encasement as described above. 2. Small hiatal hernia. 3. Normal appendix. Dictated by: Octaviano Triana M.D. on 09/12/2020 at 16:49 Approved by: Octaviano Triana M.D. on 09/12/2020 at 16:53
[2020-09-12 16:45] LABS: Bacteria Urine None Seen
[2020-09-12 16:53] LABS: Culture Indicated Urine Cult Not Indicated; Hyaline Casts Urine 5-10/LPF; RBC Urine 0-1/HPF (0-5/HPF); Squamous Epithelial Cell Urine 1-5 /HPF (0-5/HPF); WBC Urine 0-1/HPF (0-5/HPF)
[2020-09-12] MEDS: MORPHINE 4 MG/ML INJ IV (17:10)
[2020-09-12] MEDS: SODIUM CHLORIDE 0.9% 1,000 ML 1000 ML IV (17:12)
[2020-09-12 17:14] LABS: Lactate (Lactic Acid) 0.8 mmol/L (0.7-2.1)
[2020-09-12] MEDS: PIPERACILLIN/TAZO 4.5 GM in SODIUM CHLORIDE 0.9% 100 ML 200 ML IV (17:14)
[2020-09-12 18:03] VITALS: BMI 26.1
[2020-09-12 18:15] VITALS: BP 129/72; PULSE 75; RESP 19; TEMP 37.4; O2SAT 100
--- NOTE | 2020-09-12 18:22 | P.HP_ITS ---
History of Present Illness History of Present Illness Date Patient Seen: 09/12/20 Time Patient Seen: 18:22 Chief complaint: stomach issues, can't poop Narrative: This is a 65 yo woman with history of diverticulitis and HTN, who was seen in the ER back in July with left lower quadrant pain, and was treated for diverticulitis with a 10 day course of antibiotics. She says that her symptoms resolved for short time, and then came back again at the beginning of August. She has been having on and off left lower quadrant pain since then, and has been calling her radio division officer complaining to them about her pain. She says she did not call her primary care doctor, because her primary care doctor at the clinic on [address] has left, and she has seen at OR there a couple of times. The PA sent her over here today to the ER, and in the ER she had a CT scan which revealed sigmoid diverticulitis with a large abscess, with no apparent free fluid or free air. She has a white blood cell count of 18.8. She denies melena, hematochezia, unexplained weight loss. She denies nausea/vomiting. ROS: Denies dysuria, flank pain, chest pain, shortness of breath. Thirteen system review is otherwise negative other than as mentioned below and in HPI. PE: GENERAL: Alert, comfortable, speaking on the phone with a relative. Appears stated age. Answers questions promptly and appropriately. Vital signs noted. HENT: Normocephalic, atraumatic. Hearing intact. EYES: Conjunctiva pink, sclera white, no periorbital swelling. CARDIOVASCULAR: Regular rate. No pedal edema. RESPIRATORY: Non-tachypneic, breathing comfortably on room air. GASTROINTESTINAL: Abdomen soft, rounded, focally tender in the left lower quadrant, mildly tender the right lower quadrant, no incisional scars, no palpable masses GENITALURINARY: No flank tenderness. MUSCULOSKELETAL: Equal tone and mass bilaterally. SKIN: Warm, dry, soft, appropriate color for ethnicity. No other lesions, r ashes, or wounds. NEURO: Alert and Oriented X 3. No gross sensory deficits, or cognitive issues. PSYCH: Appropriate affect and mood. Patient History Medical History Colon polyps (~2017) Hearing loss Hypertension Measles (~1961) Uterine infection (~1977) Vision disorder Surgical History Anesthesia History of ectopic Family & Social History Family History Father Cancer Mother History of heart disease Brother Diabetes mellitus History of heart disease Liver disease Grandfather History of heart attack Social History: household members spouse Tobacco & Substance use: Smoking Status Former smoker alcohol intake current alcohol intake frequency a few times a week Meds Home Medications and Allergies Home Medications Medication Instructions Recorded Confirmed Type aspirin 81 mg tablet,delayed 81 mg PO DAILY 07/18/20 09/12/20 History release lisinopril 20 mg tablet 20 mg PO DAILY 07/18/20 09/12/20 History naproxen sodium [Aleve] 220 mg PO BID PRN 09/05/20 09/12/20 History Allergies Allergy/AdvReac Type Severity Reaction Status Date / Time No Known Drug Allergies Allergy Verified 09/05/20 12:14 Exam Vital Signs (past 8 hours): - 09/12/20 15:54 Temperature 98.2 F Pulse Rate 95 H Respiratory Rate 22 Blood Pressure 148/80 H Pulse Oximetry 98 Oxygen Delivery Method Room Air Objective Imaging CT scan - abdomen: Radiologist's impression: [address] [id number] Scan ReportSigned Patient: Denisha Flores [facility]#: [id number]: 5Acct:[id number]/Sex: 65 / FDate of Service: 09/12/20Loc: EDAccession Number: [id number] Procedure: CT abdomen pelvis w con Ordering Provider: Neal Campos D.O. PROCEDURE: CT ABDOMEN PELVIS W CON INDICATIONS: History of diverticulitis, worsening symptoms, leukocytosis TECHNIQUE: After the administration of intravenous contrast, 5 mm thick sections acquired from the diaphragm to the symphysis. 5 mm coronal and sagittal reformats were acquired. For radiation dose reduction, the following was used: automated exposure control, adjustment of mA and/or kV according to patient size. COMPARISON: [facility], CT, CT ABDOMEN PELVIS W CON, 07/18/2020, 17:00. FINDINGS: Image quality: Excellent. ABDOMEN: Lung bases: Lung bases are clear. Heart size is normal. Solid organs: Liver is normal in size and enhancement. Gallbladder is within normal limits. Biliary system is non dilated. Pancreas enhances normally. Spleen is normal in size and enhancement. No adrenal nodules. Kidneys demonstrate normal size and enhancement, without hydronephrosis. Peritoneum and bowel: Small hiatal hernia. Stomach and small bowel are grossly unremarkable. Appendix is normal. Colon is nondistended. Diverticulosis of the distal transverse colon, descending, and sigmoid colon is present. There is moderate thickening and mild surrounding fat stranding involving the sigmoid colon. There is a increased multi locular septated fluid collection at the inferolateral aspect of the mid sigmoid colon within the left adnexal region, measuring roughly 70 mm transverse by 70 mm craniocaudal by 70 mm transverse. This fluid collection contains a small amount of gas and partially encases the left distal iliac artery and vein. No free fluid or air. Nodes and vessels: No retroperitoneal or mesenteric adenopathy by size criteria. Aorta and inferior vena cava are normal in size. Miscellaneous: No ventral hernias. PELVIS: Genitourinary: Bladder wall thickness is normal. Miscellaneous: No inguinal hernias or adenopathy. Bones: No suspicious bony lesions. No vertebral body compression fractures. IMPRESSION: 1. Multiloculated pericolonic abscess containing a small amount of gas, consistent with diverticulitis sequelae. There is vascular encasement as described above. 2. Small hiatal hernia. 3. Normal appendix. Dictated by: Octaviano Triana M.D. on 09/12/2020 at 16:49 Approved by: Octaviano Triana M.D. on 09/12/2020 at 16:53 Labs Result Diagrams: 09/12/20 16:00 09/12/20 16:00 Labs: Laboratory Results - last 24 hr 09/12/20 09/12/20 09/12/20 16:00 16:00 16:00 WBC 18.8 H RBC 3.91 L Hgb 12.6 Hct 37.4 MCV 95.7 MCH 32.2 MCHC 33.6 RDW 12.7 Plt Count 498 H Neut % (Auto) 75.9 H Lymph % (Auto) 13.9 L [place] % (Auto) 9.4 Eos % (Auto) 0.2 L Baso % (Auto) 0.6 Neut # (Auto) 26206 H Lymph # (Auto) 2600 [place] # (Auto) 1800 H Eos # (Auto) 0 Baso # (Auto) 100 Sodium 134 L Potassium 3.8 Chloride 96 L Carbon Dioxide 29 BUN 31 H Creatinine 1.18 H Estimated GFR 46.0 L BUN/Creatinine Ratio 26.3 H Glucose 104 Lactate 0.8 Calcium 9.5 Total Bilirubin 0.6 AST 25 ALT 21 Alkaline Phosphatase 157 H Total Protein 7.6 Albumin 4.0 Globulin 3.6 Albumin/Globulin Ratio 1.1 Lipase 52 Urine RBC Urine WBC Ur Squamous Epith Cells Urine Bacteria Hyaline Casts Ur Culture Indicated? 09/12/20 16:20 WBC RBC Hgb Hct MCV MCH MCHC RDW Plt Count Neut % (Auto) Lymph % (Auto) [place] % (Auto) Eos % (Auto) Baso % (Auto) Neut # (Auto) Lymph # (Auto) [place] # (Auto) Eos # (Auto) Baso # (Auto) Sodium Potassium Chloride Carbon Dioxide BUN Creatinine Estimated GFR BUN/Creatinine Ratio Glucose Lactate Calcium Total Bilirubin AST ALT Alkaline Phosphatase Total Protein Albumin Globulin Albumin/Globulin Ratio Lipase Urine RBC 0-1/hpf Urine WBC 0-1/hpf Ur Squamous Epith Cells 1-5 /hpf Urine Bacteria None seen Hyaline Casts 5-10/lpf Ur Culture Indicated? Cult not indicated Assessment & Plan Assessment and plan (1) Diverticulitis of intestine with abscess: Qualifiers: Diverticulitis site: large intestine Diverticulitis bleeding: without bleeding Qualified Code(s): K57.20 - Diverticulitis of large intestine with perforation and abscess without bleeding Status: Acute (2) Abdominal pain: Qualifiers: Abdominal location: generalized Qualified Code(s): R10.84 - Generalized abdominal pain Status: Acute (3) Family history of colon cancer in father: Status: Acute Assessment & Plan narrative: This is a 65-year-old woman with complicated colonic diverticulitis with associated abscess. We had a long discussion with the patient regarding the potential for antibiotic treatment, the possibility of needing drainage or intraoperative management of her abscess, and the possible need for surgery which may include colon resection, and possible ostomy. The patient would like to avoid surgery if possible. I have explained to her that she will need to be NPO with IV fluids and IV antibiotics and we will watch her labs, exam, and possibly repeat a CT scan to determine whether not she is able to get through this with antibiotics alone, if she will need a drainage procedure or colon resection on this admission. Plan: NPO except for ice chips and water IV antibiotics IV fluid Ambulate Home meds, pain meds, antiemetics DVT prophylaxis A.m. labs COVID-19 COVID-19 status: Negative Result date/Date tested (Pos, Neg/Pending): 09/12/20 Time Spent With Patient Time with patient: 25 - 35 minutes Quality VTE Deep Vein Thrombosis/Pulmonary Embolism Present on Admission: No
[2020-09-12 18:27] LABS: COVID19 - ADMIT (NP swab/PCR) Negative (Negative)
[2020-09-12] MEDS: SODIUM CHLORIDE 0.9% 1,000 ML 125 ML IV (18:37)
[2020-09-12] MEDS: FAMOTIDINE 20 MG/50 ML PIGGYBACK 200 MG IV ×2 (18:40→23:38)
[2020-09-12] MEDS: MORPHINE 2 MG/ML INJ IV ×2 (18:57→23:39)
[2020-09-12] MEDS: PIPERACILLIN/TAZO 3.375 GM in SODIUM CHLORIDE 0.9% 100 ML 25 ML IV (19:01)
[2020-09-12 19:40] VITALS: BP 114/67; PULSE 69; RESP 18; TEMP 37.3; O2SAT 98
[2020-09-12] MEDS: HEPARIN 5,000 UNIT/ML VIAL 5000 UNIT SUBCUT (21:11)
--- NOTE | 2020-09-12 22:25 | PC.NURSE ---
Pt arrived to floor from ED. Alert/oriented. Pt c/o abdominal pain and back pain. Med x 2 w/ MS IVP as per orders w/relief. IVF NS @ 125cc/hr infusing into RAC via pump w/o incidence. Pt is NPO w/only sips at this time for possible surgery tomorrow. Call light w/in reach, bed alarm on for pt safety., Continue w/plan of care.
[2020-09-12 23:59] VITALS: BP 124/83; PULSE 75; RESP 18; TEMP 36.8; O2SAT 98
[2020-09-13] VITALS (7 sets, daily range): BP systolic 107–132; BP diastolic 55–72; PULSE 60–75; RESP 15–17; TEMP 36.4–37.1; O2SAT 95–97
[2020-09-13] MEDS: PIPERACILLIN/TAZO 3.375 GM in SODIUM CHLORIDE 0.9% 100 ML 25 ML IV ×3 (03:16→18:57)
[2020-09-13] MEDS: SODIUM CHLORIDE 0.9% 1,000 ML 125 ML IV ×2 (04:34→14:52)
[2020-09-13 06:07] LABS: Add Manual Diff / Slide Review NO; Basophils Absolute Auto 100 /uL (0-100); Basophils Percent Auto 0.8 % (0-2); Eosinophils Absolute Auto 100 /uL (0-450); Eosinophils Percent Auto 0.3 % (2-4); Hematocrit 33.9 % (36-46); Hemoglobin 11.1 g/dL (12.0-16.0); Lymphocytes Absolute Auto 1600 /uL (1100-4500); Mean Corpuscular HGB Conc 32.9 % (30-36); Mean Corpuscular Hemoglobin 31.7 PG (26-34); Mean Corpuscular Volume 96.4 fL (80-100); Monocytes Absolute Auto 1900 /uL (0-900); Monocytes Percent Auto 11.4 % (3-14); Neutrophils Absolute Auto 12600 /uL (1500-7000); Neutrophils Percent Auto 77.5 % (50-75); Platelet Count 439 X10^3/uL (150-400); Red Blood Cell Count 3.51 X10^6/uL (4.0-5.2); White Blood Cell Count 16.3 X10^3/uL (4.5-11.0)
[2020-09-13 06:13] LABS: BUN Creatinine Ratio 22.2 (6-22); Blood Urea Nitrogen 22 mg/dL (7-17); Calcium 8.5 mg/dL (8.4-10.2); Carbon Dioxide 27 mmol/L (22-32); Chloride 100 mmol/L (98-107); Estimated Glomerular Filt Rate 56.3 mL/min (>60); Glucose 93 mg/dL (80-110); HEMOLYSIS < 15 (0-50); Magnesium 1.9 mg/dL (1.6-2.3); Potassium 4.2 mmol/L (3.4-5.1); Sodium 133 mmol/L (137-145)
[2020-09-13] MEDS: MORPHINE 2 MG/ML INJ IV ×5 (06:16→23:14)
[2020-09-13] MEDS: HEPARIN 5,000 UNIT/ML VIAL 5000 UNIT SUBCUT ×2 (08:45→18:57)
--- NOTE | 2020-09-13 09:12 | CM.DANOTE ---
DCP: Case received, EMR reviewed and met with patient. Introduced self and role. Was able to obtain information regarding patient's baseline activity level prior to hospitalization, as well as her current living situation. DCP assessment completed with information currently available. Patient is a 65 year old female who admitted yesterday to the care of the hospitalist team. PCP: Dr. Walker. Payer: confirmed: Medicare/[employer]. Patient came to the hospital via private vehicle secondary to having abdominal pain, and was also having difficulty having bowel movements. Patient had been in recent contact with OB/Dr. Leonard, regarding her symptoms as well. Patient was diagnosed with Diverticulitis of intestine with abscess. She is currently getting IV antibiotics, but may possibly be having surgery for colon resection which may entail a temporary ostomy. Met with patient in her room. She is alert and oriented, pleasant. She indicated that she had this pain for several days, she thought that it was more OB related, had been in contact with Dr. Leonard, who mentioned, was fibroids. Patient resides on [facility] with her spouse, Christiano, who had been out of town at the time that the pain started. Patient also has a daughter that lives on [place]. Patient is independent at her baseline. She had gone to the [place] clinic, and the physican assistant news director encouraged patient to come her to the ER. P: DCP to continue to follow and will be available for any resources needed. Patient should be able to go home once medically stable, but is unclear at this time if she will be going home with an ostomy. Elizabet Polanco RN/Jewel Di[employer] Gauger
[2020-09-13] MEDS: FAMOTIDINE 20 MG/50 ML PIGGYBACK 200 MG IV (11:01)
--- NOTE | 2020-09-13 14:21 | PM.PN.1 ---
Subjective Subjective Date Patient Seen: 09/13/20 Time Patient Seen: 12:30 Interval history: No acute events overnight. Pt feeling a bit better. Passing gas, but no stool. Exam Vital Signs (past 8 hours): - 09/13/20 08:10 09/13/20 08:14 09/13/20 12:34 Temperature 98.5 F 98.2 F Pulse Rate 66 66 68 Respiratory Rate 15 16 Blood Pressure 107/55 L 107/55 L 132/72 Pulse Oximetry 97 96 Oxygen Delivery Method Room Air Narrative Exam Narrative: GENERAL: Sleeping, but alert once awakened. Appears stated age. Answers questions promptly and appropriately. Vital signs noted. HENT: Normocephalic, atraumatic. Hearing intact. EYES: Conjunctiva pink, sclera white, no periorbital swelling. CARDIOVASCULAR: Regular rate. No pedal edema. RESPIRATORY: Non-tachypneic, breathing comfortably on room air. GASTROINTESTINAL: Abdomen soft, rounded, TTP in LLQ and periumbilical area; no flank pain, no RLQ pain GENITALURINARY: No flank tenderness. MUSCULOSKELETAL: Equal tone and mass bilaterally. SKIN: Warm, dry, soft, appropriate color for ethnicity. No other lesions, rashes, or wounds. NEURO: Alert and Oriented X 3. No gross sensory deficits, or cognitive issues. PSYCH: Appropriate affect and mood. Objective Labs Result Diagrams: 09/13/20 05:45 09/13/20 05:45 Labs: Laboratory Results - last 24 hr 09/12/20 09/12/20 09/12/20 16:00 16:00 16:00 WBC 18.8 H RBC 3.91 L Hgb 12.6 Hct 37.4 MCV 95.7 MCH 32.2 MCHC 33.6 RDW 12.7 Plt Count 498 H Neut % (Auto) 75.9 H Lymph % (Auto) 13.9 L [place] % (Auto) 9.4 Eos % (Auto) 0.2 L Baso % (Auto) 0.6 Neut # (Auto) 61324 H Lymph # (Auto) 2600 [place] # (Auto) 1800 H Eos # (Auto) 0 Baso # (Auto) 100 Sodium 134 L Potassium 3.8 Chloride 96 L Carbon Dioxide 29 BUN 31 H Creatinine 1.18 H Estimated GFR 46.0 L BUN/Creatinine Ratio 26.3 H Glucose 104 Lactate 0.8 Calcium 9.5 Magnesium Total Bilirubin 0.6 AST 25 ALT 21 Alkaline Phosphatase 157 H Total Protein 7.6 Albumin 4.0 Globulin 3.6 Albumin/Globulin Ratio 1.1 Lipase 52 Urine RBC Urine WBC Ur Squamous Epith Cells Urine Bacteria Hyaline Casts Ur Culture Indicated? SARS-CoV-2 (PCR) 09/12/20 09/12/20 09/13/20 16:20 17:22 05:45 WBC 16.3 H RBC 3.51 L Hgb 11.1 L Hct 33.9 L MCV 96.4 MCH 31.7 MCHC 32.9 RDW 13.0 Plt Count 439 H Neut % (Auto) 77.5 H Lymph % (Auto) 10.0 L [place] % (Auto) 11.4 Eos % (Auto) 0.3 L Baso % (Auto) 0.8 Neut # (Auto) 76981 H Lymph # (Auto) 1600 [place] # (Auto) 1900 H Eos # (Auto) 100 Baso # (Auto) 100 Sodium Potassium Chloride Carbon Dioxide BUN Creatinine Estimated GFR BUN/Creatinine Ratio Glucose Lactate Calcium Magnesium Total Bilirubin AST ALT Alkaline Phosphatase Total Protein Albumin Globulin Albumin/Globulin Ratio Lipase Urine RBC 0-1/hpf Urine WBC 0-1/hpf Ur Squamous Epith Cells 1-5 /hpf Urine Bacteria None seen Hyaline Casts 5-10/lpf Ur Culture Indicated? Cult not indicated SARS-CoV-2 (PCR) Negative 09/13/20 05:45 WBC RBC Hgb Hct MCV MCH MCHC RDW Plt Count Neut % (Auto) Lymph % (Auto) [place] % (Auto) Eos % (Auto) Baso % (Auto) Neut # (Auto) Lymph # (Auto) [place] # (Auto) Eos # (Auto) Baso # (Auto) Sodium 133 L Potassium 4.2 Chloride 100 Carbon Dioxide 27 BUN 22 H Creatinine 0.99 Estimated GFR 56.3 L BUN/Creatinine Ratio 22.2 H Glucose 93 Lactate Calcium 8.5 Magnesium 1.9 Total Bilirubin AST ALT Alkaline Phosphatase Total Protein Albumin Globulin Albumin/Globulin Ratio Lipase Urine RBC Urine WBC Ur Squamous Epith Cells Urine Bacteria Hyaline Casts Ur Culture Indicated? SARS-CoV-2 (PCR) [facility] Medical History Colon polyps (~2018) Hearing loss Hypertension Measles (~1961) Uterine infection (~1977) Vision disorder Surgical History Anesthesia History of ectopic Family History Father Cancer Mother History of heart disease Brother Diabetes mellitus History of heart disease Liver disease Grandfather History of heart attack Social History household members: spouse Smoking Status: Former smoker alcohol intake: current additional social history: QUIT DATE SMOKIN05/07/1998 Assessment & Plan Assessment and plan (1) Diverticulitis of intestine with abscess: Qualifiers: Diverticulitis bleeding: without bleeding Diverticulitis site: large intestine Qualified Code(s): K57.20 - Diverticulitis of large intestine with perforation and abscess without bleeding Status: Acute (2) Hypertension: Qualifiers: Hypertension type: unspecified Qualified Code(s): I10 - Essential (primary) hypertension Status: Acute (3) Abdominal pain, LLQ (left lower quadrant): Status: Acute Assessment & Plan narrative: No acute events overnight. Patient was admitted last evening for complicated diverticulitis, with a contained abscess. Her white blood cell count has come down slightly, and her pain is slightly improved. I told her that there is still a chance she will need surgery during this admission, but we will for now continue with antibiotics. If she improves enough tomorrow, we will consider starting her on a clear liquid diet tomorrow. Plan: IV Zosyn, IV fluids, antiemetics as needed, pain medicine as needed Ambulate Water and ice chips by mouth Daily labs DVT prophylaxis with SCDs and heparin COVID-19 COVID-19 status: Negative Result date/Date tested (Pos, Neg/Pending): 09/12/20 Time Spent With Patient Time with patient: 15-24 minutes Quality VTE Deep Vein Thrombosis/Pulmonary Embolism Present on Admission: No
[2020-09-14] MEDS: FAMOTIDINE 20 MG/50 ML PIGGYBACK 200 MG IV ×2 (00:13→13:54)
[2020-09-14] MEDS: SODIUM CHLORIDE 0.9% 1,000 ML 125 ML IV ×3 (00:13→18:02)
[2020-09-14] MEDS: ACETAMINOPHEN 325 MG TABLET 650 MG PO ×3 (00:17→19:53)
--- NOTE | 2020-09-14 01:16 | PC.NURSE ---
patient is alert and oriented. Breath sounds CTA with RA sat of 95%. HRR. Denies nausea. BT present and abdomen is soft with tenderness throughout but greater in LLQ and is mildly distended; reports passing flatus. Did complain of 8/10 sharp, shooting pain and was medicated with Morphine and pain decreased to 6/10 but requested to additionally take Tylenol and is now asleep. Denies dysuria, frequency or urgency with urination. Is able to move herself in bed. Gets up to bathroom with SBA. Refusing SCD's so reminded to ankle wave. Fall risk score is moderate but patient verbalizes agreement to call for assistance when getting out of bed and has been calling appropriately so bed alarm not in use.
[2020-09-14] MEDS: PIPERACILLIN/TAZO 3.375 GM in SODIUM CHLORIDE 0.9% 100 ML 25 ML IV ×3 (02:41→19:25)
[2020-09-14] MEDS: MORPHINE 2 MG/ML INJ IV ×5 (03:15→23:21)
[2020-09-14 03:20] VITALS: BP 98/50; PULSE 63; RESP 16; TEMP 36.7; O2SAT 95
[2020-09-14 05:55] LABS: Add Manual Diff / Slide Review NO; Basophils Absolute Auto 100 /uL (0-100); Basophils Percent Auto 0.4 % (0-2); Eosinophils Absolute Auto 100 /uL (0-450); Eosinophils Percent Auto 0.4 % (2-4); Hematocrit 32.7 % (36-46); Hemoglobin 10.7 g/dL (12.0-16.0); Lymphocytes Absolute Auto 2200 /uL (1100-4500); Lymphocytes Percent Auto 13.3 % (25-40); Mean Corpuscular HGB Conc 32.6 % (30-36); Mean Corpuscular Hemoglobin 31.3 PG (26-34); Mean Corpuscular Volume 95.7 fL (80-100); Monocytes Absolute Auto 1900 /uL (0-900); Monocytes Percent Auto 11.4 % (3-14); Neutrophils Absolute Auto 12300 /uL (1500-7000); Neutrophils Percent Auto 74.5 % (50-75); Platelet Count 396 X10^3/uL (150-400); Red Blood Cell Count 3.41 X10^6/uL (4.0-5.2); Red Cell Distribution Width 12.8 % (11.6-14.8); White Blood Cell Count 16.5 X10^3/uL (4.5-11.0)
[2020-09-14 05:57] LABS: Blood Urea Nitrogen 16 mg/dL (7-17); Calcium 8.3 mg/dL (8.4-10.2); Carbon Dioxide 21 mmol/L (22-32); Chloride 102 mmol/L (98-107); Estimated Glomerular Filt Rate > 60.0 mL/min (>60); Glucose 64 mg/dL (80-110); HEMOLYSIS < 15 (0-50); Magnesium 1.8 mg/dL (1.6-2.3); Potassium 3.7 mmol/L (3.4-5.1); Sodium 131 mmol/L (137-145)
[2020-09-14 06:25] LABS: Phosphorous 3.1 mg/dL (2.8-4.1)
[2020-09-14] MEDS: MAGNESIUM SULFATE 2 GM/50 ML PIGGYBACK IV (06:29)
[2020-09-14 07:45] VITALS: BP 124/57; PULSE 66; RESP 15; TEMP 36.2; O2SAT 96
[2020-09-14] MEDS: HEPARIN 5,000 UNIT/ML VIAL 5000 UNIT SUBCUT ×2 (08:26→19:40)
--- NOTE | 2020-09-14 13:15 | PM.PN.1 ---
Subjective Subjective Date Patient Seen: 09/14/20 Time Patient Seen: 13:16 Interval history: No acute events overnight. Patient says her pain is slightly better. She has been passing lots of gas but no stool. She tolerated clears this morning without nausea or vomiting. Exam Vital Signs (past 8 hours): - 09/14/20 07:45 Temperature 97.2 F L Pulse Rate 66 Respiratory Rate 15 Blood Pressure 124/57 L Pulse Oximetry 96 Oxygen Delivery Method Room Air Oxygen Flow Rate 0 Narrative Exam Narrative: GENERAL: Alert, oriented, comfortable Appears stated age. Answers questions promptly and appropriately. Vital signs noted. HENT: Normocephalic, atraumatic. Hearing intact. EYES: Conjunctiva pink, sclera white, no periorbital swelling. CARDIOVASCULAR: Regular rate. No pedal edema. RESPIRATORY: Non-tachypneic, breathing comfortably on room air. GASTROINTESTINAL: Abdomen soft, rounded, improved but not resolved tenderness to palpation in the periumbilical and left lower quadrant, no flank tenderness, no signs of generalized peritoneal GENITALURINARY: No flank tenderness. MUSCULOSKELETAL: Equal tone and mass bilaterally. SKIN: Warm, dry, soft, appropriate color for ethnicity. No other lesions, rashes, or wounds. NEURO: Alert and Oriented X 3. No gross sensory deficits, or cognitive issues. PSYCH: Appropriate affect and mood. Objective Labs Result Diagrams: 09/14/20 05:35 09/14/20 05:35 Labs: Laboratory Results - last 24 hr 09/14/20 09/14/20 09/14/20 05:35 05:35 05:35 WBC 16.5 H RBC 3.41 L Hgb 10.7 L Hct 32.7 L MCV 95.7 MCH 31.3 MCHC 32.6 RDW 12.8 Plt Count 396 Neut % (Auto) 74.5 Lymph % (Auto) 13.3 L [place] % (Auto) 11.4 Eos % (Auto) 0.4 L Baso % (Auto) 0.4 Neut # (Auto) 14942 H Lymph # (Auto) 2200 [place] # (Auto) 1900 H Eos # (Auto) 100 Baso # (Auto) 100 Sodium 131 L Potassium 3.7 Chloride 102 Carbon Dioxide 21 L BUN 16 Creatinine 0.80 Estimated GFR > 60.0 BUN/Creatinine Ratio 20.0 Glucose 64 L Calcium 8.3 L Phosphorus 3.1 Magnesium 1.8 PFSH Medical History Colon polyps (~2018) Hearing loss Hypertension Measles (~1962) Uterine infection (~1977) Vision disorder Surgical History Anesthesia History of ectopic Family History Father Cancer Mother History of heart disease Brother Diabetes mellitus History of heart disease Liver disease Grandfather History of heart attack Social History household members: spouse Smoking Status: Former smoker alcohol intake: current additional social history: QUIT DATE SMOKIN05/07/1998 Assessment & Plan Assessment and plan (1) Diverticulitis of intestine with abscess: Qualifiers: Diverticulitis bleeding: without bleeding Diverticulitis site: large intestine Qualified Code(s): K57.20 - Diverticulitis of large intestine with perforation and abscess without bleeding Status: Acute (2) Hypertension: Qualifiers: Hypertension type: unspecified Qualified Code(s): I10 - Essential (primary) hypertension Status: Acute (3) Abdominal pain, LLQ (left lower quadrant): Status: Acute Assessment & Plan narrative: The patient is on hospital day 3 of IV antibiotics for a pelvic fluid inflammatory process surrounding the sigmoid colon, which was thought to be diverticulitis, with an associated abscess. Her left shift has resolved, but her white blood cell count is still 16,000. Her exam is improved, but her pain and tenderness have not completely resolved. She is passing gas now which is an improvement for her but has not passed any stool. She is tolerating clear liquids by mouth. Today I spoke to her about the possibility of needing to go in the operating room to drain this collection if she does not completely resolve. The patient prefers to avoid an operation if possible, and I have told her I think there is about a 50% chance were slightly better that she will be able to do that, however it is difficult to get an abscess to resolve with antibiotics alone. Dr. Craft will be on-call tomorrow, and Dr. Hampton will be health and nutrition specialist over the weekend. On anticipating possible surgical intervention, I reviewed her images with my partner Dr. Craft and with Dr. Gill of Radiology. This case does not present as a typical diverticulitis. Particularly because of the cystic entity in the left pelvis, which is potentially of ovarian origin. The radiologist was not able to definitively identify the origin of the cystic structure being either from the colon or from the ovary, but he favored it being from the ovary. He explained to me that the reason for presuming it was originating from the colon is that the colon does have diverticula in it and it is thickened. However, from looking at the prior CT scan, it appears that the colon is chronically thickened, as often happens in someone with chronic diverticulosis. If that is the case, then the colon may be an innocent bystander, and the ovary may be the offending entity. At this point, we will consult our garden tractor mechanic colleagues to take a look at the patient's scan, and to help us make sense of her overall picture, and consider whether not diagnostic laparoscopy is appropriate for this patient, or whether her antibiotic should be adjusted to treat a tubo-ovarian abscess. I have let the patient know that there is still a chance she will need surgery during this admission. We will see what we find out from our garden tractor mechanic colleagues, and probably repeat a CT scan before doing anything further procedure early. If she improves enough tomorrow, we will consider starting her on a clear liquid diet tomorrow. Plan: IV Zosyn, IV fluids, antiemetics as needed, pain medicine as needed Add Flagyl [employer] Senior [employer] consult Ambulate Clear liquid diet as tolerated Daily labs DVT prophylaxis with SCDs and heparin COVID-19 COVID-19 status: Negative Result date/Date tested (Pos, Neg/Pending): 09/12/20 Time Spent With Patient Time with patient: 15-24 minutes Quality VTE Deep Vein Thrombosis/Pulmonary Embolism Present on Admission: No
[2020-09-14 13:52] VITALS: BP 124/73; PULSE 66; RESP 14; TEMP 36.4; O2SAT 97
[2020-09-14] MEDS: metroNIDAZOLE 500 MG/100 ML PIGGYBACK 100 MG IV ×2 (13:55→19:25)
--- NOTE | 2020-09-14 15:15 | DI.MRI.S_ITS ---
PROCEDURE: MR PELVIS WO/W CON INDICATIONS: pelvic mass, possible abscess, possible ovarian TECHNIQUE: Coronal HASTE, sagittal breath-hold T2 FSE; axial T1 FSE with and without fat saturation through the pelvis. Optional long- and short-axis uterine nonbreath-hold T2 FSE through the uterus. Sagittal or axial dynamic VIBE during administration of contrast. Post-contrast axial or coronal VIBE/2-D FLASH with fat saturation from the iliac crests to the symphysis. Optional diffusion weighted imaging and ADC may be performed. COMPARISON: [facility], CT, CT ABDOMEN PELVIS W CON, 09/12/2020, 16:42. [facility], US, US PELVIC COMPLETE, 08/01/2020, 11:06. [facility], CT, CT ABDOMEN PELVIS W CON, 07/18/2020, 17:00. FINDINGS: Image quality: Excellent. Uterus: Uterus is anteverted and normal in size. Uterus is deviated to the right. Endometrium is normal in thickness measuring at 0.5 cm, (3/9). Punctate focus of gas within the endometrial cavity. Junctional zone is normal in thickness at 12 mm or less. Adnexa: In the left pelvis in the region of the left adnexa and extending superiorly towards the sigmoid colon is a heterogeneous fluid collection measuring 8.3 x 6.2 x 4.5 cm, estimated volume of 120 cc, (22/61 and 23/79). There is peripheral enhancement with multiple septations. The fluid is T2 hyperintense and T1 hypointense. Air is seen within the collection on prior CT. The left ovary is not seen. The right ovary is probably visualized, (3/6). Urinary system: Bladder is decompressed. Distal ureters are non distended. Urethra appears normal in morphology. Nodes and vessels: No pelvic or inguinal adenopathy by size criteria. Iliac vessels appear normal in size. No filling defects seen. Bowel and peritoneum: Diverticulosis. There is thickening of the sigmoid colon. No small bowel obstruction. There is engorgement of the vasculature adjacent to the sigmoid colon. Soft tissues: No inguinal hernias. No findings of pelvic floor incompetence in the absence of provocation. Bones: Marrow demonstrates normal overall signal. IMPRESSION: Complex fluid collection in the region of the left adnexa measuring 8.3 cm in length and volume of 120 cc. There is marked restricted diffusion and peripheral enhancement with multiple septations. Air is seen within the collection on the prior CT. Findings most compatible with abscess. Favor diverticular abscess. Pyosalpinx/PID could have a similar appearance. However, cystic left adnexal lesion was seen on CT 07/18/2020. There is suspicion for underlying left ovarian neoplasm. Recommend follow-up cross-sectional imaging with MRI or CT with IV contrast. Dictated by: Mathew Lang M.D. on 09/14/2020 at 16:58 Approved by: Mathew Lang M.D. on 09/14/2020 at 17:24
[2020-09-14 15:20] VITALS: BP 131/73; PULSE 73; RESP 16; TEMP 37; O2SAT 98
[2020-09-14] MEDS: LORazepam 1 MG TABLET PO ×2 (15:49→19:53)
--- NOTE | 2020-09-14 17:53 | P.CONS_ITS ---
History of Present Illness Consult details Date Patient Seen: 09/14/20 Time Patient Seen: 17:54 Chief complaint: stomach issues, can't poop Reason for consult: left lower quadrent mass Requesting provider: Yanique Brasher Narrative: This patient is a 65-year-old para 1 admitted to the general surgery service with a suspected diverticular abscess, with question of underlying ovarian malignancy. Patient reports that she has had left lower quadrant pain waxing and waning for several months, and that she followed with Dr. Rowan as [facility]. In July 2020, she had a CT scan that showed a left lower quadrant mass, a transvaginal ultrasound that showed normal left ovary and no sign of the mass, and she reports that her pain improved and so she did not have follow-up. Several weeks ago, she began to have recurrent left lower quadrant cramping pain, and eventually presented to a primary care provider in Friday. She was transferred to the emergency room where CT scan was performed, showed a larger or more prominent left lower quadrant mass, and she was admitted to the general surgery service. The patient reports 1 episode of nausea last , but no persistent nausea, bloating, early satiety, or change in bowel or bladder habits. She has a history of 1 uncomplicated vaginal delivery and 2 tubal pregnancies. The patient has a sibling who had early breast cancer, but no other family history of computer publisher, colon, or other malignancies. She denies any history of abnormal Pap smears or pelvic infections or any other contributory computer publisher history. Records review indicates hist ory of uterine infection, but the patient does not endorse this history and no further information is available. Her medical and surgical history is as below. Meds Home Medications and Allergies Home Medications Medication Instructions Recorded Confirmed Type aspirin 81 mg tablet,delayed 81 mg PO DAILY 07/18/20 09/12/20 History release lisinopril 20 mg tablet 20 mg PO DAILY 07/18/20 09/12/20 History naproxen sodium [Aleve] 220 mg PO BID PRN 09/05/20 09/12/20 History Allergies Allergy/AdvReac Type Severity Reaction Status Date / Time No Known Drug Allergies Allergy Verified 09/05/20 12:14 Exam Vital Signs (past 8 hours): - 09/14/20 13:52 09/14/20 15:20 Temperature 97.5 F L 98.6 F Pulse Rate 66 73 Respiratory Rate 14 16 Blood Pressure 124/73 131/73 Pulse Oximetry 97 98 Oxygen Delivery Method Room Air Oxygen Flow Rate 0 Const General: cooperative, healthy appearing and comfortable GI Palpation: soft and tender (Tender in the left lower quadrant, no rebound or guarding, palpably full) Objective Labs Result Diagrams: 09/14/20 05:35 09/14/20 05:35 Labs: Laboratory Results - last 24 hr 09/14/20 09/14/20 09/14/20 05:35 05:35 05:35 WBC 16.5 H RBC 3.41 L Hgb 10.7 L Hct 32.7 L MCV 95.7 MCH 31.3 MCHC 32.6 RDW 12.8 Plt Count 396 Neut % (Auto) 74.5 Lymph % (Auto) 13.3 L [place] % (Auto) 11.4 Eos % (Auto) 0.4 L Baso % (Auto) 0.4 Neut # (Auto) 19176 H Lymph # (Auto) 2200 [place] # (Auto) 1900 H Eos # (Auto) 100 Baso # (Auto) 100 Sodium 131 L Potassium 3.7 Chloride 102 Carbon Dioxide 21 L BUN 16 Creatinine 0.80 Estimated GFR > 60.0 BUN/Creatinine Ratio 20.0 Glucose 64 L Calcium 8.3 L Phosphorus 3.1 Magnesium 1.8 Assessment & Plan Assessment & Plan narrative: This patient has a left lower quadrant mass of unknown etiology. It is unclear if the left ovary is involved, and abdominal and pelvic CT is not necessarily going to definitively answer this question. Patient did have a transvaginal ultrasound between the 2 CT scans showing a left lower quadrant mass, and the transvaginal ultrasound did show normal left ovary without signs of a mass, though it is possible that a malignancy may have been missed or may be adjacent to the ovary but gynecologic in origin. A pelvic MRI is pending, but it is likely that it will be difficult to definitively identify the source of the lesion without diagnostic laparoscopy. I discussed with the patient that duct observation and tissue pathology may be necessary to make a definitive diagnosis, and after discussion with Dr. Brasher, the patient is likely to be added on for such when feasible for the primary general surgery team. Dr. Brasher and I discussed that OBGYN is told to be present in any diagnostic laparoscopy, with further planning pending intraoperative findings. I discussed with the patient that her plan is pending the results of her MRI and the desires of her primary team, and we discussed all of the above. All questions were answered to the best of my ability.
[2020-09-14 19:40] VITALS: BP 133/72; PULSE 67; RESP 15; TEMP 36.7; O2SAT 98
[2020-09-14 23:33] VITALS: BP 128/63; PULSE 69; RESP 16; TEMP 36.2; O2SAT 97
[2020-09-15] VITALS (7 sets, daily range): BP systolic 133–164; BP diastolic 59–80; PULSE 63–80; RESP 14–18; TEMP 36.3–36.6; O2SAT 92–98
[2020-09-15] MEDS: FAMOTIDINE 20 MG/50 ML PIGGYBACK 200 MG IV ×2 (00:04→13:06)
--- NOTE | 2020-09-15 00:12 | PC.NURSE ---
patient is alert and oriented. Breath sounds CTA with RA sat of 97%. HRR. Denies nausea. BT present and abdomen is soft but tender, especially over LLQ, and appears distended; states she is still passing flatus but has not had BM. States abdominal pain/tenderness is sharp and shooting with movement so medicated with Morphine for 7/10 severity pain. Denies dysuria, frequency or urgency with urination. Is able to turn herself in bed. Up to bathroom with SBA and is steady; denies weakness. Refusing SCD's as not able to sleep with them on; reminded to ankle wave and patient verbalizes understanding. Fall risk score is moderate but patient appears drowsy and per evening RN was slightly disoriented after receiving Lorazepam earlier so bed alarm is currently activated. Talks about having seen RECOVERY AUDITOR MD and discussion re: possible causes of abdominal pain. Patient talking matter of factly but did become teary when asked how she is coping with this information; provided reassurance and allowed to vent.
[2020-09-15] MEDS: metroNIDAZOLE 500 MG/100 ML PIGGYBACK 100 MG IV ×4 (01:19→18:59)
[2020-09-15] MEDS: PIPERACILLIN/TAZO 3.375 GM in SODIUM CHLORIDE 0.9% 100 ML 25 ML IV ×3 (03:13→20:16)
[2020-09-15] MEDS: SODIUM CHLORIDE 0.9% 1,000 ML 125 ML IV ×2 (03:15→13:27)
[2020-09-15] MEDS: MORPHINE 2 MG/ML INJ IV ×3 (05:16→20:25)
[2020-09-15 05:51] LABS: Add Manual Diff / Slide Review NO; Basophils Absolute Auto 100 /uL (0-100); Basophils Percent Auto 0.5 % (0-2); Eosinophils Absolute Auto 0 /uL (0-450); Eosinophils Percent Auto 0.3 % (2-4); Hematocrit 33.4 % (36-46); Lymphocytes Absolute Auto 1500 /uL (1100-4500); Lymphocytes Percent Auto 8.9 % (25-40); Mean Corpuscular HGB Conc 32.9 % (30-36); Mean Corpuscular Hemoglobin 31.6 PG (26-34); Mean Corpuscular Volume 96.1 fL (80-100); Monocytes Absolute Auto 1700 /uL (0-900); Monocytes Percent Auto 9.6 % (3-14); Neutrophils Absolute Auto 14000 /uL (1500-7000); Neutrophils Percent Auto 80.7 % (50-75); Platelet Count 428 X10^3/uL (150-400); Red Blood Cell Count 3.47 X10^6/uL (4.0-5.2); Red Cell Distribution Width 12.8 % (11.6-14.8); White Blood Cell Count 17.4 X10^3/uL (4.5-11.0)
[2020-09-15 05:54] LABS: Chloride 103 mmol/L (98-107); HEMOLYSIS 22 (0-50)
[2020-09-15 05:57] LABS: BUN Creatinine Ratio 14.3 (6-22); Blood Urea Nitrogen 9 mg/dL (7-17); Calcium 8.4 mg/dL (8.4-10.2); Carbon Dioxide 19 mmol/L (22-32); Estimated Glomerular Filt Rate > 60.0 mL/min (>60); Glucose 68 mg/dL (80-110); Magnesium 1.9 mg/dL (1.6-2.3); Potassium 3.9 mmol/L (3.4-5.1); Sodium 132 mmol/L (137-145)
[2020-09-15] MEDS: ACETAMINOPHEN 325 MG TABLET 650 MG PO (09:14)
[2020-09-15] MEDS: HEPARIN 5,000 UNIT/ML VIAL 5000 UNIT SUBCUT ×2 (12:10→20:32)
[2020-09-15] MEDS: MAGNESIUM CITRATE 300 ML SOLUTION 150 ML PO (14:40)
[2020-09-15] MEDS: DEXTROSE 5%-LACTATED RINGERS 1,000 ML 125 ML IV ×2 (14:41→23:50)
[2020-09-15] MEDS: BISACODYL 10 MG SUPP PR (14:44)
--- NOTE | 2020-09-15 15:09 | PC.NURSE ---
Md notified - unable to pass supp into rectum. Could get supp in partially, either pt is to tense and muscle tone to tight to pass but it does feel as if the supp was hitting an obstruction of some type and pt reported it felt like the supp was hitting something to poss an internal hemm. or something else. Next issue is pt is having difficulty taking prep and what to do with oral medications. See new orders, hold supp, give zofran, start meds 30 mins after mag citrate is completed. Information passed along to jesus Avery. IV meds sl delayed this am due to pt taking a very long shower.
--- NOTE | 2020-09-15 15:12 | CM.DPC ---
DCP: continued. Case received, EMR reviewed and discussed in Team Rounds. OBGYN [facility] [place] is consulting and surgery is planned for some time today.. Will check EMR in the morning to see specifics of same and follow prn for d/c issues and optiosn. Admission status: INPT: confirmed by [place] RN Payer: Medicare and [employer] P.
[2020-09-15] MEDS: ONDANSETRON 4 MG/2 ML INJ IV ×2 (15:43→20:18)
[2020-09-15] MEDS: NEOMYCIN 500 MG TABLET 1000 MG PO ×3 (16:46→20:17)
[2020-09-15] MEDS: ERYTHROMYCIN BASE 250 MG TABLET 1000 MG PO ×2 (16:47→20:17)
--- NOTE | 2020-09-15 17:19 | DIET.PN ---
Dietary Progress Note RD attempted visit twice, pt at imaging once and in shower second time. Pt headed to surgery, seems possible ovarian source vs. GI. RD to f/u Friday.
--- NOTE | 2020-09-15 23:00 | PM.PN.1 ---
Subjective Subjective Date Patient Seen: 09/15/20 Time Patient Seen: 19:01 Interval history: Patient was seen several times today. She Feels better than she has but is still having abdominal pain. Her pain is principally in left lower and right upper quadrants. She had a very small bowel movement earlier today. After receiving Mag citrate she cleared her intestines. This evening she is feeling a little washed out but a little better as well. She did not tolerate oral antibiotics well until she was given anti nausea meds. Exam Vital Signs (past 8 hours): - 09/15/20 15:27 09/15/20 19:05 Temperature 97.3 F L 97.6 F Pulse Rate 69 77 Respiratory Rate 16 16 Blood Pressure 162/80 H 142/80 H Pulse Oximetry 93 98 Oxygen Delivery Method Room Air Oxygen Flow Rate 0 Narrative Exam Narrative: Cooperative no apparent distress. Alert. Lungs clear. Abdomen is distended but soft. There is tenderness in the left lower quadrant right upper quadrant with minimal guarding or wincing. Objective Labs Result Diagrams: 09/15/20 05:15 09/15/20 05:15 Labs: Laboratory Results - last 24 hr 09/15/20 09/15/20 05:15 05:15 WBC 17.4 H RBC 3.47 L Hgb 11.0 L Hct 33.4 L MCV 96.1 MCH 31.6 MCHC 32.9 RDW 12.8 Plt Count 428 H Neut % (Auto) 80.7 H Lymph % (Auto) 8.[address] [place] % (Auto) 9.6 Eos % (Auto) 0.3 L Baso % (Auto) 0.5 Neut # (Auto) 03941 H Lymph # (Auto) 1500 [place] # (Auto) 1700 H Eos # (Auto) 0 Baso # (Auto) 100 Sodium 132 L Potassium 3.9 Chloride 103 Carbon Dioxide 19 L BUN 9 Creatinine 0.63 Estimated GFR > 60.0 BUN/Creatinine Ratio 14.3 Glucose 68 L Calcium 8.4 Magnesium 1.9 PFSH Medical History Colon polyps (~2017) Hearing loss Hypertension Measles (~1961) Uterine infection (~1977) Vision disorder Surgical History Anesthesia History of ectopic Family History Father Cancer Mother History of heart disease Brother Diabetes mellitus History of heart disease Liver disease Grandfather History of heart attack Social History household members: spouse Smoking Status: Former smoker alcohol intake: current additional social history: QUIT DATE SMOKIN05/07/1998 Assessment & Plan Assessment & Plan narrative: Patient with an abscess in left lower quadrant based on CT scanning and an MRI. Her story is rather complex and it is not clear from any of the reports the source of this abscess that is is it ovarian in nature or is it colonic. I strongly suspect is colonic based on the fact that there is gas within at the assisted have gas-forming organisms. Is quite large and unlikely to completely respond to antibiotics given in a volume estimate of under 20 cc of fluid. It is possible this is a complex ovarian lesion as the patient did have a cystic ovarian process seen on earlier imaging. Common things are common however and this is most likely diverticular in nature. I have talked to the patient regarding the fact that it is highly unlikely to clear this process without draining abscess. It is not really amenable to percutaneous drainage and therefore I would like to do this with the laparoscoped. Depending on the findings there are multiple things that could happen. If this is tube ovarian in nature we returned this over the student counselor. Dr. Bell is available and is aware of the plan should he be needed. I chose not to do the operation today because the patient began to have bowel function and if I could give her a bowel prep and resection became necessary it can be done fairly safely without as much concern as an unprepped colon. I explained to her that if we could find good tissue proximal and distal to this abscess we could do a primary anastomosis. If not she may end up with an ostomy. All of this would be decided intraoperatively and she understands that. Ideally, if his is diverticular nature and we can successfully drain the abscess and settle everything down, and elective resection might be in her best interest since this inflammatory process partially encases her iliac vessels and presumptively her ureter as well. All questions were answered and we plan to proceed in the morning. Patient is aware that either I or Dr. kira Hampton may be performing this procedure with the assistance of the other. Quality VTE Deep Vein Thrombosis/Pulmonary Embolism Present on Admission: No
[2020-09-15] MEDS: PROCHLORPERAZINE 10 MG/2 ML VIAL IV (23:50)
[2020-09-16] VITALS (19 sets, daily range): BP systolic 112–161; BP diastolic 57–86; PULSE 60–84; RESP 14–30; TEMP 36–36.8; O2SAT 88–98; BMI 26.1
[2020-09-16] MEDS: NEOMYCIN 500 MG TABLET 1000 MG PO
[2020-09-16] MEDS: ERYTHROMYCIN BASE 250 MG TABLET 1000 MG PO
[2020-09-16] MEDS: FAMOTIDINE 20 MG/50 ML PIGGYBACK 200 MG IV (00:01)
[2020-09-16] MEDS: MORPHINE 2 MG/ML INJ IV ×2 (00:23→09:02)
[2020-09-16] MEDS: metroNIDAZOLE 500 MG/100 ML PIGGYBACK 100 MG IV ×4 (01:22→19:58)
[2020-09-16] MEDS: ONDANSETRON 4 MG/2 ML INJ IV (01:58)
--- NOTE | 2020-09-16 02:24 | PC.NURSE ---
patient is alert and oriented. Breath sounds CTA with RA sat of 92%. HRR. Denied nausea during assessment but was medicated with Compazine prior to giving 0000 dose of Neomycin/Erythromycin as they had caused nausea last dosing. Around 0200 patient did complain of some nausea but without emesis so medicated with Zofran. BT hyperactive and is passing flatus. Abdomen is soft but tender across umbilical area with most tenderness in LLQ. States pain is never better than 6/10 and was 7/10 at assessment time and was medicated with Morphine. Is getting up frequently to urinate; denies dysuria or urgency but does have increased pain in abdomen when voiding. Is able to turn herself in bed. Up to bathroom with SBA. Again refusing to wear SCD's so reminded to ankle wave. Fall risk score is moderate and bed alarm is activated. Is NPO except for meds because surgery is planned for a.m.
[2020-09-16] MEDS: PIPERACILLIN/TAZO 3.375 GM in SODIUM CHLORIDE 0.9% 100 ML 25 ML IV ×3 (02:56→18:23)
[2020-09-16] MEDS: ACETAMINOPHEN 325 MG TABLET 650 MG PO ×2 (06:02→10:47)
[2020-09-16] MEDS: GABAPENTIN 300 MG CAPSULE PO ×2 (06:03→10:46)
[2020-09-16] MEDS: LACTATED RINGERS 1,000 ML 42 ML IV ×3 (06:03→10:52)
--- NOTE | 2020-09-16 10:37 | PC.NURSE ---
Day shift: Pt off unit for surgery at approx 1030.
--- NOTE | 2020-09-16 10:38 | PM.PREOP ---
Pre-operative Note Interval Note History & Physical reviewed/Exam performed by Physician: Yes Changes to H&P: No
[2020-09-16] MEDS: SCOPOLAMINE 1 PATCH TOP (10:46)
--- NOTE | 2020-09-16 11:33 | SUR.OPER ---
Lithotomy on padded OR bed, head on pillow, arms secured on padded arm boards at <90 degrees abduction. Legs secured in padded yellow fins stirrups.
[2020-09-16] MEDS: BUPIVACAINE 0.5% (PF) VIAL 30 ML INJ (11:48)
[2020-09-16] MEDS: fentaNYL 100 MCG/2 ML INJ IV ×3 (13:02→13:23)
--- NOTE | 2020-09-16 13:06 | SUR.PHASEI ---
Pt arrived to PACU, gradually awake, c/o pain, medicated with fentanyl, taking ice chips sparingly.
--- NOTE | 2020-09-16 13:10 | P.OP_ITS ---
Operative Date/Time/Diagnoses Date of procedure: 09/16/20 Time of procedure: 13:10 Pre-op diagnosis: Intra-abdominal abscess Post-op diagnosis: same Procedure & Clinicians Procedure: Diagnostic laparoscopy, drainage of intra abdominal abscess Same procedure as scheduled: Yes Indications: 65-year-old woman with left lower quadrant abdominal pain found to have a intra-abdominal abscess unclear as to whether it originates from the colon or the left ovary not amenable to percutaneous drainage. Surgeon: Ben Hampton Changer Fixer: Og Craft Anesthesia Type: General Operative Notes Findings: Large intra abdominal abscess appears to be originating from the sigmoid colon along the left pelvic sidewall Specimen(s): other (Intra-abdominal abscess for culture) Estimated Blood Loss (mL): 50 Procedure in detail: Patient was brought to the operating room and placed supine on the table. She received Zosyn prior to skin incision. General anesthesia was induced and she was intubated with an endotracheal tube. She was then placed into lithotomy position and appropriately padded. She was prepped and draped in sterile fashion. Time-out was performed. An infra umbilical skin incision was made. The umbilical stalk was grasped elevated and the fascia was sharply incised. The abdomen was entered atraumatically and a 12 mm balloon port was then placed into the abdomen. Pneumoperitoneum was established. There was no evidence of injury upon entry. Two additional 5 mm ports were placed in the right lower quadrant. The small bowel was swept out of the pelvis and the left lower quadrant was examined. The sigmoid colon was adherent to the left pelvic sidewall, the sigmoid colon was densely fibrotic and there was a loop of small bowel that was adherent to the colon. The colon was difficult to mobilize off of the lateral wall. An incision was made in the left lower quadrant in order to accommodate a finger. Using blunt dissection and the colon was carefully dissected off of the lateral wall and in doing so a large intra- abdominal abscess was entered. Cultures were obtained. The abscess cavity involved the left lower quadrant from the level of the anterior superior iliac spine to pubis and deep to the uterus. The loculations were broken and the abscess was debrided. The left adnexal structures were quite distorted by the infection, the uterus and the round ligament were identified but the left ovary could not be positively identified. The pelvis was copiously irrigated with sterile saline. A 19 [place] Nate drain was then placed into the abscess cavity and brought out through the right side of the abdomen. The fascia of the umbilical incision and the left lower quadrant were closed with 0 Vicryl in [id number] fashion placed under direct visualization. All the skin incisions were closed using Monocryl followed by Dermabond and Steri-Strips. Patient tolerated procedure well was extubated and transferred to recovery room in stable condition. Complications: none Post-operative Condition: stable Disposition: Acute Care
--- NOTE | 2020-09-16 13:49 | SUR.PHASEI ---
Report called to TAMI Dalton.
[2020-09-16] MEDS: OXYCODONE IR 5 MG TABLET PO ×3 (13:52→23:06)
--- NOTE | 2020-09-16 14:06 | SUR.PHASEI ---
Pt medicated with oxycodone after applesauce tolerated, Pt transported up to room 203 and left with Yosarian in stable condition.
--- NOTE | 2020-09-16 14:08 | PC.NURSE ---
Day shift: Pt back on AC unit at this time. 4 lap sites LEROY w/ no s/s of infection or leaking. Nate drain patent. Pt is A&Ox4. Spouse in room for support. Pt stated that she is not hungry at this time. Call light in reach. Pt also stated that she needed to urinate. Helped to BSC by EXECUTIVE ADMINISTRATOR. IV fluids started per JUN.
[2020-09-16] MEDS: LACTATED RINGERS 1,000 ML 120 ML IV (14:17)
[2020-09-16] MEDS: KETOROLAC 30 MG/ML VIAL IV ×2 (14:32→20:09)
--- NOTE | 2020-09-16 14:38 | PC.NURSE ---
Day shift: Pt's gold colored rings/jewelry given to Pt's spouse today. He is taking them back to [facility] today.
--- NOTE | 2020-09-16 17:35 | PC.NURSE ---
Addendum entered by Denisha Hubbard R.N. 09/16/20 22:00: Pt refusing SCD's at this time. Addendum entered by Denisha Hubbard R.N. 09/16/20 21:35: Satisfactory post op course. Lap sites CDI Richa drain intact/patent. SCD on. Call light w/in reach, bed alarm on for pt safety/ Continue w/plan of care. Original Note: Pt resting @ intervals. Med @ 1540 for discomfort w/good relief. IVF LR infusing into right wrist @ 120cc/hr via pump w/o incidence. HL RAC intact/patent. HL left hand intact/patent. Lap sites CDI richa drain intact/patent. Pt refuses SCD Call light w/in reach, bed alarm on for pt safety.
[2020-09-16] MEDS: HEPARIN 5,000 UNIT/ML VIAL 5000 UNIT SUBCUT (20:04)
[2020-09-17] VITALS (7 sets, daily range): BP systolic 127–165; BP diastolic 69–77; PULSE 50–75; RESP 14–20; TEMP 36.2–36.9; O2SAT 92–98
--- NOTE | 2020-09-17 00:13 | PC.NURSE ---
Addendum entered by Anna Marie Watkins R.N. 09/17/20 06:12: Has slept most of shift only getting up x3 to BSC tonight. States pain is 8/10 this morning and requests/medicated with Morphine + Tylenol. Original Note: patient is alert and oriented with brighter affect tonight. Breath sounds diminished at bases but CTA with RA sat of 95%. HRR but bradycardic at 56 bpm; BP elevated at 165/75 but currently having 8/10 abdominal pain. Denies nausea. BT present but denies flatus since return from surgery; abdomen is soft, tender and still mildly distended. States pain is more of a dull ache now and the sharp, shooting pains she was having pre-op is no longer present. Medicated with oxycodone per patient request even though ordered for 4-6 pain and is now asleep. Continues to have urinary frequency and often in smaller amounts but denies dysuria; urine is clear edson. Lap sites to lower abdomen with intact steri-strips. Nate drain in intact and compressed with bright red drainage on gauze at insertion site; drainage is serosanguinous. Is able to turn herself in bed. Feeling much weaker tonight so is getting up to BSC with 1 assist. Continues to refuse SCD's so reminded to ankle wave and patient verbalizes understanding. Fall risk score is moderate and bed alarm is activated although patient has been calling appropriately for assistance.
--- NOTE | 2020-09-17 00:38 | PC.NURSE ---
patient is alert and oriented. Breath sounds CTA with RA sat of 96%. HRR. Denies nausea. BT present and is passing flatus. Indwelling catheter is patent; urine is clear, light yellow. Is able to move self in bed. Gait not assessed at this time. Dressing to back is intact w/shadow drainage noted; hemovac is intact and compressed. Left foot pedal edema. Denies pain. Back wound culture is growing gm + cocci so is currently on contact precautions awaiting identification/sensitivities. Wearing bilateral calf SCD's. Fall risk score is high and bed alarm is activated.
[2020-09-17] MEDS: metroNIDAZOLE 500 MG/100 ML PIGGYBACK 100 MG IV ×4 (01:29→19:53)
[2020-09-17] MEDS: KETOROLAC 30 MG/ML VIAL IV ×4 (01:31→20:41)
[2020-09-17] MEDS: PIPERACILLIN/TAZO 3.375 GM in SODIUM CHLORIDE 0.9% 100 ML 25 ML IV ×3 (02:54→18:52)
[2020-09-17] MEDS: ACETAMINOPHEN 325 MG TABLET 650 MG PO (06:08)
[2020-09-17] MEDS: MORPHINE 2 MG/ML INJ IV (06:08)
[2020-09-17 06:17] LABS: Add Manual Diff / Slide Review NO; Basophils Absolute Auto 200 /uL (0-100); Eosinophils Absolute Auto 0 /uL (0-450); Hematocrit 34.2 % (36-46); Hemoglobin 11.2 g/dL (12.0-16.0); Lymphocytes Absolute Auto 900 /uL (1100-4500); Lymphocytes Percent Auto 5.1 % (25-40); Mean Corpuscular HGB Conc 32.9 % (30-36); Mean Corpuscular Hemoglobin 31.6 PG (26-34); Monocytes Absolute Auto 600 /uL (0-900); Monocytes Percent Auto 3.5 % (3-14); Neutrophils Absolute Auto 16000 /uL (1500-7000); Neutrophils Percent Auto 90.4 % (50-75); Platelet Count 460 X10^3/uL (150-400); Red Blood Cell Count 3.56 X10^6/uL (4.0-5.2); Red Cell Distribution Width 13.1 % (11.6-14.8); White Blood Cell Count 17.7 X10^3/uL (4.5-11.0)
[2020-09-17 06:40] LABS: BUN Creatinine Ratio 10.8 (6-22); Blood Urea Nitrogen 7 mg/dL (7-17); Calcium 8.6 mg/dL (8.4-10.2); Carbon Dioxide 28 mmol/L (22-32); Chloride 100 mmol/L (98-107); Estimated Glomerular Filt Rate > 60.0 mL/min (>60); Glucose 127 mg/dL (80-110); HEMOLYSIS < 15 (0-50); Potassium 3.9 mmol/L (3.4-5.1); Sodium 137 mmol/L (137-145)
[2020-09-17] MEDS: LACTATED RINGERS 1,000 ML 120 ML IV (07:04)
[2020-09-17] MEDS: HEPARIN 5,000 UNIT/ML VIAL 5000 UNIT SUBCUT ×2 (07:39→21:05)
--- NOTE | 2020-09-17 09:41 | P.PN_ITS ---
Subjective Subjective Date Patient Seen: 09/17/20 Time Patient Seen: 12:47 Interval history: Left lower quadrant pain significantly improved from preoperative status. No fever nausea or vomiting. Tolerated regular diet. Exam Vital Signs (past 8 hours): - 09/17/20 03:16 09/17/20 07:07 Temperature 97.4 F L 97.2 F L Pulse Rate 54 L 50 L Respiratory Rate 16 14 Blood Pressure 139/69 144/77 H Pulse Oximetry 93 92 Oxygen Delivery Method Room Air Oxygen Flow Rate 0 Narrative Exam Narrative: General adult female alert oriented no acute distress Abdomen soft appropriately tender to palpation abdominal drain serosanguineous incisions clean dry intact. Objective Labs Result Diagrams: 09/17/20 06:01 09/17/20 06:01 Labs: Laboratory Results - last 24 hr 09/17/20 09/17/20 06:01 06:01 WBC 17.7 H RBC 3.56 L Hgb 11.2 L Hct 34.2 L MCV 96.0 MCH 31.6 MCHC 32.9 RDW 13.1 Plt Count 460 H Neut % (Auto) 90.4 H Lymph % (Auto) 5.1 L [place] % (Auto) 3.5 Eos % (Auto) 0.0 L Baso % (Auto) 1.0 Neut # (Auto) 28229 H Lymph # (Auto) 900 L [place] # (Auto) 600 Eos # (Auto) 0 Baso # (Auto) 200 H Sodium 137 Potassium 3.9 Chloride 100 Carbon Dioxide 28 BUN 7 Creatinine 0.65 Estimated GFR > 60.0 BUN/Creatinine Ratio 10.8 Glucose 127 H Calcium 8.6 PFSH Medical History Colon polyps (~2018) Hearing loss Hypertension Measles (~1961) Uterine infection (~1977) Vision disorder Surgical History Anesthesia History of ectopic Family History Father Cancer Mother History of heart disease Brother Diabetes mellitus History of heart disease Liver disease Grandfather History of heart attack Social History household members: spouse Smoking Status: Former smoker alcohol intake: current additional social history: QUIT DATE SMOKIN05/07/1998 Assessment & Plan Post-op Postoperative Procedures: Procedures Operation Date: 09/16/20 09:00 Actual Procedures Side Surgeon p Laparoscopy, Diagnostic, GEN, DRAINAGE ABDOMINAL ABSCESS Not Applicable Ben Hampton MD Postoperative status narrative: 65-year-old female postoperative day 1 status p ost diagnostic laparoscopy and drainage of intra-abdominal abscess secondary to diverticulitis. -continue IV antibiotics as written. Deescelate/tailor antibiotics when cultures are available -Diet as tolerated discontinue IV fluids -SCDs and heparin for DVT prophylaxis -out of bed and ambulate Quality VTE Deep Vein Thrombosis/Pulmonary Embolism Present on Admission: No
--- NOTE | 2020-09-17 13:28 | CM.DPC ---
DCP: continued: pt is now postop day one diagnostic laparoscopy and drainage of intra-abdominal abscess secondary to diverticulitis. Dr. Hampton is continuing the IV antibiotics and awaiting cultures. Diet as tolerated. DC of IV fluids. Ambulation encouraged. DCP team will continue to follow. P: remains home when stable for same (? oral antibiotics at home).
[2020-09-17] MEDS: OXYCODONE IR 5 MG TABLET PO ×2 (14:25→21:05)
[2020-09-18] MEDS: SODIUM CHLORIDE 0.9% 1,000 ML 50 ML IV (00:05)
[2020-09-18] MEDS: metroNIDAZOLE 500 MG/100 ML PIGGYBACK 100 MG IV ×2 (01:32→09:01)
[2020-09-18] MEDS: SODIUM CHLORIDE 0.9% FLUSH 10 ML IV ×4 (01:32→22:52)
[2020-09-18] MEDS: KETOROLAC 30 MG/ML VIAL IV ×4 (01:43→21:08)
[2020-09-18] MEDS: OXYCODONE IR 5 MG TABLET PO ×2 (01:48→06:04)
[2020-09-18] MEDS: PIPERACILLIN/TAZO 3.375 GM in SODIUM CHLORIDE 0.9% 100 ML 25 ML IV ×3 (02:48→21:03)
[2020-09-18 05:55] VITALS: BP 123/73; PULSE 84; RESP 20; TEMP 36.7; O2SAT 98
[2020-09-18 05:56] LABS: BUN Creatinine Ratio 21.6 (6-22); Blood Urea Nitrogen 16 mg/dL (7-17); Calcium 8.3 mg/dL (8.4-10.2); Carbon Dioxide 27 mmol/L (22-32); Chloride 103 mmol/L (98-107); Estimated Glomerular Filt Rate > 60.0 mL/min (>60); Glucose 99 mg/dL (80-110); HEMOLYSIS < 15 (0-50); Potassium 3.6 mmol/L (3.4-5.1); Sodium 133 mmol/L (137-145)
[2020-09-18 05:58] LABS: Hematocrit 29.1 % (36-46); Hemoglobin 9.6 g/dL (12.0-16.0); Mean Corpuscular Hemoglobin 31.6 PG (26-34); Mean Corpuscular Volume 95.8 fL (80-100); Platelet Count 431 X10^3/uL (150-400); Red Blood Cell Count 3.04 X10^6/uL (4.0-5.2); Red Cell Distribution Width 13.1 % (11.6-14.8); White Blood Cell Count 14.9 X10^3/uL (4.5-11.0)
[2020-09-18 06:05] LABS: Add Manual Diff / Slide Review YES
[2020-09-18 06:25] LABS: Neutrophils Absolute Manual 11622 /uL (3000-5900); RBC Morphology Normal Morphology; Total Cells Counted 100
[2020-09-18 09:00] VITALS: BP 152/75; PULSE 54; RESP 18; TEMP 36.7; O2SAT 95
[2020-09-18] MEDS: HEPARIN 5,000 UNIT/ML VIAL 5000 UNIT SUBCUT ×2 (09:01→22:51)
--- NOTE | 2020-09-18 10:23 | PM.PN.1 ---
Subjective Subjective Date Patient Seen: 09/18/20 Time Patient Seen: 10:23 Interval history: No acute events overnight. The patient says I haven't peed since surgery. 900mL of urine output are recorded by the nursing staff in the last 24 hours. I asked her nurse to bladder scan and straight cath if greater than 200mL. The bladder scan revealed 40mL. Per the nurse, her urine has not been dark. Exam Vital Signs (past 8 hours): - 09/18/20 05:55 09/18/20 09:00 Temperature 98.1 F 98.1 F Pulse Rate 84 54 L Respiratory Rate 20 18 Blood Pressure 123/73 152/75 H Pulse Oximetry 98 95 Oxygen Delivery Method Room Air Oxygen Flow Rate 0 Narrative Exam Narrative: GENERAL: Alert, oriented, comfortable Appears stated age. Answers questions promptly and appropriately. Vital signs noted. HENT: Normocephalic, atraumatic. Hearing intact. EYES: Conjunctiva pink, sclera white, no periorbital swelling. CARDIOVASCULAR: Regular rate. No pedal edema. RESPIRATORY: Non-tachypneic, breathing comfortably on room air. GASTROINTESTINAL: Abdomen soft, appropriate TTP; AALIYAH drain dark serosang with some debris in it GENITALURINARY: No flank tenderness. MUSCULOSKELETAL: Equal tone and mass bilaterally. SKIN: Warm, dry, soft, appropriate color for ethnicity. No other lesions, rashes, or wounds. NEURO: Alert and Oriented X 3. No gross sensory deficits, or cognitive issues. PSYCH: Appropriate affect and mood. Objective Labs Result Diagrams: 09/18/20 05:17 09/18/20 05:17 Labs: Laboratory Results - last 24 hr 09/18/20 09/18/20 05:17 05:17 WBC 14.9 H RBC 3.04 L Hgb 9.6 L Hct 29.1 L MCV 95.8 MCH 31.6 MCHC 33.0 RDW 13.1 Plt Count 431 H Neut % (Auto) Not Reportable Lymph % (Auto) Not Reportable [place] % (Auto) Not Reportable Eos % (Auto) Not Reportable Baso % (Auto) Not Reportable Lymph # (Auto) Not Reportable [place] # (Auto) Not Reportable Baso # (Auto) Not Reportable Total Counted 100 Seg Neutrophils % 75.0 H Band Neutrophils % 3.0 Lymphocytes % (Manual) 15.0 L Monocytes % (Manual) 7.0 Neutrophils # (Manual) 55261 H RBC Morphology Normal morphology Sodium 133 L Potassium 3.6 Chloride 103 Carbon Dioxide 27 BUN 16 Creatinine 0.74 Estimated GFR > 60.0 BUN/Creatinine Ratio 21.6 Glucose 99 Calcium 8.3 L PFSH Medical History Colon polyps (~2018) Hearing loss Hypertension Measles (~1961) Uterine infection (~1977) Vision disorder Surgical History Anesthesia History of ectopic Family History Father Cancer Mother History of heart disease Brother Diabetes mellitus History of heart disease Liver disease Grandfather History of heart attack Social History household members: spouse Smoking Status: Former smoker alcohol intake: current additional social history: QUIT DATE SMOKIN05/07/1998 Assessment & Plan Assessment and plan (1) Diverticulitis of intestine with abscess: Qualifiers: Diverticulitis bleeding: without bleeding Diverticulitis site: large intestine Qualified Code(s): K57.20 - Diverticulitis of large intestine with perforation and abscess without bleeding Status: Acute (2) Hypertension: Qualifiers: Hypertension type: unspecified Qualified Code(s): I10 - Essential (primary) hypertension Status: Acute (3) Abdominal pain, LLQ (left lower quadrant): Status: Acute Assessment & Plan narrative: This is a 65-year-old woman postop day 2 from laparoscopic drainage procedure for pelvic abscess. Her white blood cell count is improving, and her main complaint at this point is that she only urinates a small amount each time that she goes. Her overall urine output is recorded at 900 mL. Plan: Drain teaching Continue IV Zosyn, follow-up cultures Send UA Dispo pending with blood cell count resolves, and drain teaching has been completed COVID-19 COVID-19 status: Negative Result date/Date tested (Pos, Neg/Pending): 09/12/20 Time Spent With Patient Time with patient: 15-24 minutes Quality VTE Deep Vein Thrombosis/Pulmonary Embolism Present on Admission: No
--- NOTE | 2020-09-18 11:27 | CM.DPC ---
DCP Cont: Checked in on patient. She is pleasant. According to nurse, Sofy, patient most likely will go home with drain. She also should be going home on oral antibiotics, versus IV. She has supportive at home on [place]. P: DCP to continue to follow for any needs. Plan is for home when stable. Elizabet Polanco RN/Doctor Of Podiatric Medicine
[2020-09-18] MEDS: DOCUSATE 100 MG CAPSULE PO ×2 (11:33→22:51)
[2020-09-18] MEDS: polyethylene glycoL 3350 17 GM POWD.PACK PO (11:34)
[2020-09-18 12:00] VITALS: BP 147/78; PULSE 60; RESP 18; TEMP 36.4; O2SAT 96
--- NOTE | 2020-09-18 15:29 | PC.NURSE ---
Pt A&Ox3, VSS,afebrile. Lap sites C/D/I. Nate drain with minimal serosanguienous bloody fluid, minimal clots. Nate drain care teaching done for patient. She reports pain 2/10 pain much improved from previous day. Up to shower tolerated well. C/O of only dribbling urine this a.m. in small amounts, but improved this afternoon with 150 cc. UA sent per orders. Pt denies n/v minimal po food intake but adequate fluid intake. Encouraged to take scheduled laxative. BS + active x4, reports gas but no BM yet. Plan for d/c home tomorrow afterr x1 more day IV antibiotics.
[2020-09-18 15:35] VITALS: BP 135/75; PULSE 59; RESP 17; TEMP 36.2
--- NOTE | 2020-09-18 18:04 | PC.NURSE ---
Report received, care assumed 1530. Pt. A&Ox4, VSS, reports pain control. Though pt. is tolerating PO intake, she is still receiving IV fluids d/t her urine output, which is low in volume and dark in color. Receiving IV antibiotics. Standby assist only, steady on feet. Wishes to ambulate in hallway this afternoon/evening.
[2020-09-18 18:41] LABS: RBC Urine None Seen (0-5/HPF)
[2020-09-18 18:50] LABS: Appearance Urine UA SL CLOUDY; Bilirubin Urine UA NEGATIVE (NEGATIVE); Color Urine UA YELLOW; Glucose Urine UA NEGATIVE (Negative); Ketones Urine UA TRACE (NEGATIVE); Leukocyte Esterase Urine UA TRACE (NEGATIVE); Nitrite Urine UA POSITIVE (Negative); Occult Blood Urine UA NEGATIVE (Negative); Protein Urine UA TRACE (Negative); Specific Gravity Urine UA 1.015 (1.000-1.035); Urobilinogen Urine UA 0.2 E.U./dL (0.2)
[2020-09-18 18:55] LABS: pH Urine UA 5.5 (4.5-8.0)
[2020-09-18 19:01] LABS: WBC Urine 1-5/HPF (0-5/HPF)
[2020-09-18 19:02] LABS: Amorphous Sediment Urine 1+; Bacteria Urine Occasional (0-1); Calcium Oxalate Crystals Urine Moderate; Culture Indicated Urine Specimen Cultured; Squamous Epithelial Cell Urine 5-10 /HPF (0-5/HPF)
[2020-09-18 19:35] VITALS: BP 138/79; PULSE 63; RESP 16; TEMP 36.5
[2020-09-18] MEDS: ONDANSETRON 4 MG/2 ML INJ IV (21:08)
[2020-09-18] MEDS: PSYLLIUM HUSK 1 PACKET PO (22:52)
[2020-09-19] MEDS: SODIUM CHLORIDE 0.9% 1,000 ML 50 ML IV (00:07)
[2020-09-19 00:20] VITALS: BP 155/84; PULSE 66; RESP 18; TEMP 36.6; O2SAT 95
[2020-09-19] MEDS: KETOROLAC 30 MG/ML VIAL IV (02:31)
[2020-09-19] MEDS: PIPERACILLIN/TAZO 3.375 GM in SODIUM CHLORIDE 0.9% 100 ML 25 ML IV (02:34)
[2020-09-19 04:00] VITALS: BP 135/72; PULSE 60; RESP 16; TEMP 36.8; O2SAT 96
[2020-09-19] MEDS: ACETAMINOPHEN 325 MG TABLET 650 MG PO (05:53)
[2020-09-19 06:12] LABS: Mean Corpuscular HGB Conc 33.2 % (30-36); Mean Corpuscular Hemoglobin 31.9 PG (26-34); Platelet Count 446 X10^3/uL (150-400); Red Blood Cell Count 3.13 X10^6/uL (4.0-5.2); Red Cell Distribution Width 13.4 % (11.6-14.8); White Blood Cell Count 10.6 X10^3/uL (4.5-11.0)
[2020-09-19 06:16] LABS: BUN Creatinine Ratio 20.6 (6-22); Blood Urea Nitrogen 14 mg/dL (7-17); Calcium 8.2 mg/dL (8.4-10.2); Carbon Dioxide 28 mmol/L (22-32); Chloride 106 mmol/L (98-107); Estimated Glomerular Filt Rate > 60.0 mL/min (>60); Glucose 84 mg/dL (80-110); HEMOLYSIS < 15 (0-50); Potassium 3.4 mmol/L (3.4-5.1); Sodium 137 mmol/L (137-145)
[2020-09-19 06:33] LABS: Add Manual Diff / Slide Review YES
[2020-09-19 07:21] LABS: Neutrophils Absolute Manual 6148 /uL (3000-5900); Total Cells Counted 100
[2020-09-19 07:24] LABS: Polychromasia 1+
[2020-09-19 08:30] VITALS: BP 164/70; PULSE 52; RESP 17; TEMP 36.4; O2SAT 98
[2020-09-19] MEDS: SODIUM CHLORIDE 0.9% FLUSH 10 ML IV (09:25)
--- NOTE | 2020-09-19 10:21 | PM.DS.1 ---
History of Present Illness History of Present Illness Chief complaint: stomach issues, can't poop Narrative: This is a 65 yo woman with history of diverticulitis and HTN, who was seen in the ER back in July with left lower quadrant pain, and was treated for diverticulitis with a 10 day course of antibiotics. She says that her symptoms resolved for short time, and then came back again at the beginning of August. She has been having on and off left lower quadrant pain since then, and has been calling her bonbon cream warmer complaining to them about her pain. She says she did not call her primary care doctor, because her primary care doctor at the clinic on [facility] has left, and she has seen at [place] there a couple of times. The PA sent her over here today to the ER, and in the ER she had a CT scan which revealed sigmoid diverticulitis with a large abscess, with no apparent free fluid or free air. She has a white blood cell count of 18.8. She denies melena, hematochezia, unexplained weight loss. She denies nausea/vomiting. ROS: Denies dysuria, flank pain, chest pain, shortness of breath. Thirteen system review is otherwise negative other than as mentioned below and in HPI. PE: GENERAL: Alert, comfortable, speaking on the phone with a relative. Appears stated age. Answers questions promptly and appropriately. Vital signs noted. HENT: Normocephalic, atraumatic. Hearing intact. EYES: Conjunctiva pink, sclera white, no periorbital swelling. CARDIOVASCULAR: Regular rate. No pedal edema. RESPIRATORY: Non-tachypneic, breathing comfortably on room air. GASTROINTESTINAL: Abdomen soft, rounded, focally tender in the left lower quadrant, mildly tender the right lower quadrant, no incisional scars, no palpable masses GENITALURINARY: No flank tenderness. MUSCULOSKELETAL: Equal tone and mass bilaterally. SKIN: Warm, dry, soft, appropriate color for ethnicity. No other lesions, rashes, or wounds. NEURO: Alert and Oriented X 3. No gross sensory deficits, or cognitive issues. PSYCH: Appropriate affect and mood. Discharge Providers Provider Date of admission: 09/12/20 17:45 Discharge Date: 09/19/20 Primary care physician: Isabela Walker PA-C Consults: 09/12/20 19:21 Consult to Dietitian, Adult Routine Comment: Reason For Exam: abdominal pain Discharge provider: Yanique Brasher MD Summary Hospital Course Discharge Diagnosis: Pelvic abscess Hospital Course: Patient was admitted for abdominal pain, and had antibiotics, followed by laparoscopic drainage of pelvic abscess, after which she improved in terms of her exam, labs, and pain. She is doing well enough at this point to go home, and continue antibiotics at home with plans to follow-up in 1 week for drain removal. Status at Discharge Cognitive/behavioral status at discharge: at baseline, oriented Functional status at discharge: independent ambulation Overall status at discharge: patient is progressing back to baseline Time Spent with Patient Time spent: Greater than 30 minutes Exam Vital Signs (past 8 hours): - 09/19/20 04:00 09/19/20 08:30 Temperature 98.3 F 97.6 F Pulse Rate 60 52 L Respiratory Rate 16 17 Blood Pressure 135/72 164/70 H Pulse Oximetry 96 98 Oxygen Delivery Method Room Air Oxygen Flow Rate 0 Narrative Exam Narrative: GENERAL: Alert, oriented, comfortable Appears stated age. Answers questions promptly and appropriately. Vital signs noted. HENT: Normocephalic, atraumatic. Hearing intact. EYES: Conjunctiva pink, sclera white, no periorbital swelling. CARDIOVASCULAR: Regular rate. No pedal edema. RESPIRATORY: Non-tachypneic, breathing comfortably on room air. GASTROINTESTINAL: Abdomen soft, appropriate TTP; AALIYAH drain serosanguineous GENITALURINARY: No flank tenderness. MUSCULOSKELETAL: Equal tone and mass bilaterally. SKIN: Warm, dry, soft, appropriate color for ethnicity. No other lesions, rashes, or wounds. NEURO: Alert and Oriented X 3. No gross sensory deficits, or cognitive issues. PSYCH: Appropriate affect and mood. Objective Labs Result Diagrams: 09/19/20 05:30 09/19/20 05:30 Labs: Laboratory Results - last 24 hr 09/18/20 09/19/20 09/19/20 14:45 05:30 05:30 WBC 10.6 RBC 3.13 L Hgb 10.0 L Hct 30.0 L MCV 96.0 MCH 31.9 MCHC 33.2 RDW 13.4 Plt Count 446 H Neut % (Auto) Not Reportable Lymph % (Auto) Not Reportable Grimes % (Auto) Not Reportable Eos % (Auto) Not Reportable Baso % (Auto) Not Reportable Lymph # (Auto) Not Reportable Grimes # (Auto) Not Reportable Baso # (Auto) Not Reportable Total Counted 100 Seg Neutrophils % 54.0 Band Neutrophils % 4.0 Lymphocytes % (Manual) 26.0 Atypical Lymphs % 2.0 H Monocytes % (Manual) 8.0 Eosinophils % (Manual) 1.0 L Metamyelocytes % 2.0 H Myelocytes % 3.0 H Neutrophils # (Manual) 6148 H RBC Morphology See below Polychromasia 1+ H Sodium 137 Potassium 3.4 Chloride 106 Carbon Dioxide 28 BUN 14 Creatinine 0.68 Estimated GFR > 60.0 BUN/Creatinine Ratio 20.6 Glucose 84 Calcium 8.2 L Urine Color Yellow Urine Appearance Sl cloudy Urine pH 5.5 Ur Specific Yale 1.015 Urine Protein Trace H Urine Glucose (UA) Negative Urine Ketones Trace H Urine Occult Blood Negative Urine Nitrate Positive H Urine Bilirubin Negative Urine Urobilinogen 0.2 Ur Leukocyte Esterase Trace H Urine RBC None seen Urine WBC 1-5/hpf Ur Squamous Epith Cells 5-10 /hpf H Calcium Oxalate Crystal Moderate H Amorphous Sediment 1+ Urine Bacteria Occasional (0-1) Ur Culture Indicated? Specimen cultured [facility] Medical History Colon polyps (~2017) Hearing loss Hypertension Measles (~1961) Uterine infection (~1977) Vision disorder Surgical History Anesthesia History of ectopic Family History Father Cancer Mother History of heart disease Brother Diabetes mellitus History of heart disease Liver disease Grandfather History of heart attack Social History household members: spouse Smoking Status: Former smoker alcohol intake: current additional social history: QUIT DATE SMOKIN05/07/1998 Discharge Assessment & Plan Assessment and Plan Assessment: 65-year-old woman with pelvic abscess likely due to diverticulitis. The abscess is now drained, and we are sending her home with the drain in place and antibiotics, to follow up in 1 week. Plan of Treatment: we are sending her home with the drain in place and antibiotics, to follow up in 1 week. Discharge Plan Discharge Plan Patient Disposition: Home Provider Discharge Comment: Drain management: Please follow the nurse's instructions, and look at the included handouts for proper drain management. Please keep track of the volume of the output, and bring a list with you to your follow-up appointment including how much drain output has occurred each day. Hydration: Drink plenty of water to keep yourself hydrated. If you feel dry mouth or notice your urine becomes darker, increase your fluid intake. Bowel regimen: We recommend using a fiber supplement such as Metamucil, Benefiber, or psyllium husk. Use 2 tspn in 8 oz water once daily to start. You may increase or decrease the amount and frequency as needed. The goal is to have a soft, formed, stool without straining, and without having to sit on the toilet for more than 2 minutes to have a bowel movement. If feel constipated or have hard stools, you need to add a laxative for stool softener such as senna, docusate, or MiraLax. If you go 24 hours of the having a bowel movement, you should take a dose of MiraLax every 8 hours until you have a bowel movement. Pain control: You may take [id number]-sqfcios pain medicine as needed for pain. They should follow packaging instructions, and do not take more than 3000 mg of Tylenol/acetaminophen in any 24 hour period. Activity: Keep active with light activity such as gentle exercise and taking walks. Avoid lifting over 10lbs, abdominal core work, or very strenuous activity. Avoid being sedentary for prolonged periods. Showering: You may shower. Cover your drain site with a plastic dressing so that it does not get wet. After showering, keep a dry dressing over your incisional wounds as needed. If you notice any redness or drainage from the wounds, call our office and speak to Dr. Brasher, or the doctor telecommunications engineer. Other concerns or emergencies: If you have any other concerns about your surgery or post operative care, please call the surgeon's office number and speak to the office nurse or the surgeon telecommunications engineer. If you become severely ill with significant chest pain, shortness of breath, significant bleeding, or other life threatening symptoms, please call 911 or go to the ER right away. Discharge orders & Medications Prescriptions: New amoxicillin-pot clavulanate [Augmentin] 875-125 mg tablet 1 tab PO Q12H Qty: 30 RF: 0 Continued naproxen sodium [Aleve] 220 mg Capsule 220 mg PO BID PRN (Reason: Pain (Scale Score 4-6)) RF: 0 lisinopril 20 mg tablet 20 mg PO DAILY RF: 0 aspirin [Adult Low Dose Aspirin] 81 mg tablet,delayed release (DR/EC) 81 mg PO DAILY RF: 0 Follow up/Referrals: Isabela Walker PA-C [Primary Care Provider] - Yanique Brasher MD [Physician] - 09/26/20 10:00 am (appt:09/26 @ 10:00 w/dr brasher please arrive 15 minutes prior to scheduled appointment time ) Diet/Activity/Treatments Diet: Diet as Tolerated Skin/Wound/Dressing Care Report to your healthcare provider any signs of infection, such as:: chills, fever, night sweats, increased pain, unusual drainage and unusual redness Visit Report/Discharge Packet Instructions: DI for Laparoscopy, DI for Wayne-Dietz Drains, DI for Diverticulitis, [facility]: Wound Care Stand Alone Forms: Surgery Discharge Discharge Data Primary Care Provider: Isabela Walker Quality VTE Deep Vein Thrombosis/Pulmonary Embolism Present on Admission: No
--- NOTE | 2020-09-19 10:40 | CM.DPC ---
DCP Cont: Patient is discharging home today, back to [facility]. She will follow up with surgeon. Met briefly with patient, gave her a copy of her IMM form, and placed in her blue folder. [place], and [place] to take the [place] ferry. P: Patient is discharging home today. Elizabet Polanco RN/[employer]
[2020-09-19 11:47] VITALS: BP 139/77; PULSE 57; RESP 14; TEMP 36.2; O2SAT 98
--- NOTE | 2020-09-19 14:59 | PC.NURSE ---
Pt A&Ox3, denies reports of pain this a.m. VSS, afebrile. SBP slightly elevated upon recheck SBP 139/74. Feeling slight generalized edema in legs. IVF dc'd and pt cleared for discharge this a.m. MD at bedside evaluating pt. Pt voiding without difficulty +BS x4, flatus and +BM last night she reports was soft. She declined heparin injection and laxatives this a.m. for transport. Pt's arrived at 1330 to transport patient home. [employer] delivered to patient. Prescriptions escribed to [facility] in [place]. Pt educated on drain care and lap site care. She verbalized understanding and return demonstration of drain care/ covered sites for shower this a.m.. Given extra drain sponges. Pt acknowledges follow up appointment Friday with MD. Saeed at 10 a.m. and discharge instructions, activity, medications, and worsening of symptoms/signs of infection. She was escorted via w/chair by LAUNDRY TECHNICIAN to private vehicle with all of her belongings at 1340.
== END 2020-09-19 13:40 | disposition home or self-care (01) | DRG 358 ==
LOC: ED 17:07 → AC 17:46
PROVIDERS: Surgery; Admitting Provider Surgery; Emergency Provider Emergency Medicine; PCP Physician Assistant; Referring Provider Emergency Medicine; Visit Provider Surgery
PROC: 0W9G40Z Drainage of Peritoneal Cavity with Drainage Device, Percutaneous Endoscopic Approach (ICD-10-PCS; CPT 49320; principal; 2020-09-16 09:00)
DX: K57.20 Diverticulitis of large intestine with perforation and abscess without bleeding (principal); I10 Essential (primary) hypertension; Z20.822 Contact with and (suspected) exposure to COVID-19; Z87.891 Personal history of nicotine dependence
CPT/HCPCS: 36415; 49322; 72197; 74177; 80048; 80053; 81001; 81003; 81015; 83605; 83690; 83735; 84100; 85007; 85025; 87070; 87075; 87077; 87086; 87205; 87635; 94762; 96365; 96375; 99221; 99232; 99284; C9803; A9270; A9579; J0330; J0780; J1100; J1644; J1885; J2250; J2270; J2405; J2543; J2704; J3010; J3475; J7121; Q9967

== ENCOUNTER → 2020-11-24 10:40 | Outpatient (CLI) | payer MEDICARE, OTHER, SELFPAY ==
[2020-10-25 09:20] VITALS: BMI 26.1
[2020-11-24 22:48] LABS: COVID19 - ORCAS (NP or Nasal) Negative (Negative)
== END ==
PROVIDERS: PCP Physician Assistant; Visit Provider Physician Assistant
DX: Z20.822 Contact with and (suspected) exposure to COVID-19 (principal)
CPT/HCPCS: C9803; U0003

== ENCOUNTER 2020-11-27 09:23 | Day surgery (SDC) | payer MEDICARE, OTHER, SELFPAY ==
[2020-10-25 09:20] VITALS: BMI 26.1
[2020-11-27] MEDS: LACTATED RINGERS 1,000 ML 200 ML IV (09:51)
[2020-11-27 10:03] VITALS: BP 151/90; PULSE 78; RESP 16; TEMP 36.8; O2SAT 98; BMI 25.7
--- NOTE | 2020-11-27 10:53 | PM.HP.1 ---
History of Present Illness History of Present Illness Date Patient Seen: 11/27/20 Time Patient Seen: 10:53 Chief complaint: [facility] Narrative: 65-year-old female who is here today for a routine colonoscopy following resolution of diverticulitis. She had an intra-abdominal abscess that required a laparoscopic drainage 2 months ago. Since that time she has been feeling fairly well. She will have an occasional twinge of left lower quadrant discomfort however no fever nausea vomiting tolerating a diet. Previous colonoscopy demonstrated benign polyps Patient History Medical History Colon polyps (~2017) Hearing loss Hypertension Measles (~1961) Uterine infection (~1977) Vision disorder Surgical History Anesthesia History of ectopic Family & Social History Family History Father Cancer Mother History of heart disease Brother Diabetes mellitus History of heart disease Liver disease Grandfather History of heart attack Social History: household members spouse Tobacco & Substance use: Smoking Status Former smoker alcohol intake current alcohol intake frequency a few times a week Substance Use Type marijuana Meds Home Medications and Allergies Home Medications Medication Instructions Recorded Confirmed Type aspirin 81 mg tablet,delayed 81 mg PO DAILY 07/18/20 11/27/20 History release (Adult Low Dose Aspirin) lisinopril 20 mg tablet 20 mg PO DAILY 07/18/20 11/27/20 History naproxen sodium 220 mg capsule 220 mg PO BID PRN 09/05/20 11/27/20 History (Aleve) famotidine 20 mg tablet 20 mg PO DAILY #30 tab 10/25/20 11/27/20 Rx Allergies Allergy/AdvReac Type Severity Reaction Status Date / Time No Known Drug Allergies Allergy Verified 11/27/20 09:48 Exam Vital Signs (past 8 hours): - 11/27/20 10:03 Temperature 98.2 F Pulse Rate 78 Respiratory Rate 16 Blood Pressure 151/90 H Pulse Oximetry 98 Oxygen Delivery Method Room Air Narrative Exam Narrative: Constitutional-She is oriented to person, place and time. No apparent distress Cardiovascular- regular rate, no peripheral edema Pulmonary-unlabored respiratory effort, no audible wheezing Abdominal-soft, non-tender, non-distended Musculoskeletal-no cyanosis or clubbing Neurological-nonfocal, normal strength throughout, normal gait. Skin-warm and dry Assessment & Plan Assessment & Plan narrative: 65-year-old woman 2 months after a bout of complicated diverticulitis here for routine colonoscopy for follow-up. Technical details of the procedure were discussed with the patient. Procedural risks including perioperative complications, bleeding, infection, intestinal perforation were discussed. Her questions have been answered she is in agreement with this plan.
[2020-11-27] MEDS: MIDAZOLAM 5 MG/5 ML VIAL IV (11:13)
[2020-11-27] MEDS: fentaNYL 250 MCG/5 ML INJ IV (11:13)
[2020-11-27 11:27] VITALS: BP 159/80; PULSE 66; RESP 16; TEMP 36.9; O2SAT 98
--- NOTE | 2020-11-27 11:27 | PM.OP.ENDO ---
Operative Date/Time/Diagnoses Date of procedure: 11/27/20 Time of procedure: 11:27 Pre-op diagnosis: Diverticular abscess Post-op diagnosis: same Procedure & Clinicians Study performed: Sigmoidoscopy Same procedure as scheduled: Yes Indications: Diverticular abscess 2 months ago here for follow-up Surgeon: Ben Hampton Procedure Notes Procedure in detail: Medications: Conscious sedation using 7mg IV midazolam and 200mcg IV of fentanyl The history and physical was performed/updated and the patient is ASA class is 2. The procedure was discussed in detail with the patient. Potential risks complications including infection, bleeding, missed diagnosis, perforation, need for surgery, and were explained. Their questions were answered and informed consent was obtained. Patient was brought to the procedure room and placed standard monitoring equipment. The patient's vital signs were monitored continuously throughout the entire procedure. Prior to starting time-out was performed. The patient was placed in the left lateral recumbent position. Procedural sedation was administered. Examination began with a thorough inspection of the perianal area there was no evidence of fissures, fistulae, external hemorrhoids or cutaneous malignancy. The colonoscopy scope was then placed into the anal canal and was advanced forward. At 30 cm from the anal verge there was an area of stenosis in the sigmoid colon that I was unable to pass. We switched to the pediatric scope but despite this and repositioning could not moved beyond this position. Rather than risk perforation the procedure was aborted. I had tattooed the area just distal to the stenosis with 3 mL of tattoo injected in the submucosal space several quadrants. FINDINGS 1. Sigmoid stenosis The patient tolerated the procedure well. They will be discharged once criteria are met. The prep was of good/excellent quality. The withdrawl time was NA minutes. The sedation time was 21 minutes. Specimen(s): none sent Complications: none Impression: sigmoid stenosis Post-procedure Plan for aftercare: barium enema follow up in office after enema. Disposition: same day surgery
[2020-11-27 11:33] VITALS: BP 137/78; PULSE 68; RESP 16; O2SAT 97
[2020-11-27 11:38] VITALS: BP 127/79; PULSE 69; RESP 16; TEMP 36.7; O2SAT 98
[2020-11-27 11:59] VITALS: BP 141/84; PULSE 76; RESP 16; TEMP 36.8; O2SAT 97
== END 2020-11-27 12:15 | disposition home or self-care (01) ==
PROVIDERS: PCP Physician Assistant; Referring Provider Surgery; Visit Provider Surgery
PROC: 0DJD8ZZ Inspection of Lower Intestinal Tract, Via Natural or Artificial Opening Endoscopic (ICD-10-PCS; CPT 45378; principal; 2020-11-27 10:45)
DX: K56.609 Unspecified intestinal obstruction, unspecified as to partial versus complete obstruction (principal); Z87.19 Personal history of other diseases of the digestive system; Z86.010 Personal history of colon polyps; I10 Essential (primary) hypertension
CPT/HCPCS: 45330; 99152; J2250; J3010

== ENCOUNTER → 2020-12-25 10:34 | Outpatient (CLI) | payer MEDICARE, OTHER, SELFPAY ==
[2020-10-25 09:20] VITALS: BMI 26.1
--- NOTE | 2020-12-25 10:35 | DI.RAD.S_ITS ---
PROCEDURE: FL BARIUM ENEMA INDICATIONS: incomplete colonoscopy COMPARISON: [facility], MR, MR PELVIS WO/W CON, 09/14/2020, 16:02. [facility], CT, CT ABDOMEN PELVIS W CON, 09/12/2020, 16:42. [facility], CT, CT ABDOMEN PELVIS W CON, 07/18/2020, 17:00. 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 No dilated loops of bowel identified. No suspicious abdominal calcifications. Visualized solid organ contours appear normal in size. No suspicious bony lesions. Colon: There is expected opacification of the colon with administration of contrast. There is narrowing of the sigmoid colon extending approximately 6.6 cm in length which persists throughout the examination. The diameter of the colon in this region is approximately 1 cm compared to 4.8 cm in the transverse colon. This is at the site of prior abscess. There are multiple colonic diverticuli in the left colon. No leakage of contrast is seen. Contrast transits to the cecum. The appendix opacifies with contrast. The appendix is not dilated. Contrast flows into the terminal ileum. Overall the procedure was well tolerated by the patient. IMPRESSION: Long segment stricture of the sigmoid colon at the site of prior abscess. No contrast leak. Diverticulosis. Patient under went abscess drainage. The patient would likely benefit from short-term follow-up CT abdomen pelvis with IV contrast and possibly oral contrast to ensure abscess resolution and exclude underlying mass. Pelvic ultrasound could also be considered to evaluate the ovaries. Dictated by: Mathwe Lang M.D. on 12/25/2020 at 12:43 Approved by: Mathew Lang M.D. on 12/25/2020 at 12:52
== END ==
PROVIDERS: PCP Physician Assistant; Referring Provider Surgery; Visit Provider Surgery
DX: K57.20 Diverticulitis of large intestine with perforation and abscess without bleeding (principal); K56.699 Other intestinal obstruction unspecified as to partial versus complete obstruction
CPT/HCPCS: 74270; 99214

== ENCOUNTER 2021-01-31 06:05 | Inpatient (IN) | payer MEDICARE, OTHER, SELFPAY ==
[2020-10-25 09:20] VITALS: BMI 26.1
[2021-01-26 13:53] VITALS: BMI 25.7
[2021-01-31] VITALS (19 sets, daily range): BP systolic 85–138; BP diastolic 43–85; PULSE 61–96; RESP 12–17; TEMP 35.8–36.9; O2SAT 89–99; BMI 25.7
--- NOTE | 2021-01-31 | DI.RAD.S_ITS ---
PROCEDURE: XR ABDOMEN 1V INDICATIONS: BILATERAL STENT PLACEMENT TECHNIQUE: Fluoroscopic images were obtained during an operative procedure and submitted for interpretation following the completion of the procedure. COMPARISON: [facility], CT, CT ABDOMEN PELVIS W CON, 09/12/2020, 16:42. FINDINGS: These fluoroscopic images were performed for intraoperative localization. On these images, catheters can be seen extending to the renal collecting systems on both sides. Please correlate with intraoperative findings. IMPRESSION: Normal intraoperative examination. Dictated by: Rick Hastings M.D. on 01/31/2021 at 11:52 Approved by: Rick Hastings M.D. on 01/31/2021 at 11:53
--- NOTE | 2021-01-31 | PATH_ITS ---
[facility] Accession Number: [id number] . 01 Material submitted: . PART A: colon - SIGMOID COLON PART B: anastomosis - ANASTOMOTIC DONUT . 02 Diagnosis: A. Sigmoid Colon, Segmental Resection: Diverticulitis with pericolonic abscess. Diverticulosis. No evidence of dysplasia or malignancy. . B. Anastomotic Donut: Segment of colonic wall with no significant diagnostic abnormality. Negative for dysplasia and malignancy. MRV 02/05/2021 1347 Local . 02 Electronically signed: . Deedee Montana MD, Pathologist NPI- [id number] . 01 Gross description: . A. Received in formalin, labeled sigmoid colon consists of a 13.0 cm in length by 2.5 cm in diameter portion of colon with two stapled margins. The serosa is amador-pink with focal fibrinous adhesions and an abundant amount of attached adipose tissue. Opening reveals a amador-pink mucosa with normal mucosal fold. Sectioning reveals multiple uncomplicated diverticula throughout the specimen. The wall thickness measures up to 1.0 cm. Sectioning through the attached adipose tissue reveals multiple lymph nodes ranging from 0.1-0.3 cm. Activities Director sections are submitted. . A1-A2: Stapled margins, territory representative perpendicular sections (blue, black). A3-A6: Activities Director diverticula. A7: Lymph nodes. . B. Received in formalin, labeled anastomosis donut consists of two annular portions of colon measuring 1.0 x 1.0 x 0.5 cm and 1.5 x 1.4 x 0.9 cm. The mucosa is amador-pink and unremarkable. Activities Director sections of both portions of colon are submitted in cassettes B1-B2. ([id number]) /MRV 02/01/2021 1152 Local . 02 Pathologist provided ICD-10: K56.699, K57.90 . 02 CPT . 889588, [id number] Performed at: 01 [facility] [address] [address], [place], [place] [id number] MD Ismael Oscar MD Phone: [phone] Performed at: [id number] [place], [place] [id number] MD Deedee Montana MD Phone: [phone]
[2021-01-31 07:12] LABS: COVID19 -Nasal RAPID Negative (Negative)
[2021-01-31] MEDS: ACETAMINOPHEN IV 1,000 MG/100 ML VIAL 400 MG IV (07:25)
[2021-01-31] MEDS: LACTATED RINGERS 1,000 ML 42 ML IV ×4 (07:25→12:09)
--- NOTE | 2021-01-31 07:32 | SUR.OPER ---
Lithotomy on padded OR bed, head on pillow, arms secured on padded arm boards at <90 degrees abduction. Legs secured in padded yellow fins stirrups.
--- NOTE | 2021-01-31 07:38 | PM.HP.1 ---
History of Present Illness History of Present Illness Date Patient Seen: 01/31/21 Time Patient Seen: 07:38 Chief complaint: INPT Narrative: 65F here for elective laparoscopic assisted sigmoid colectomy for complicated diverticular disease previous abscess and sigmoid stricture. Since last seen continues to have left lower quadrant pain and bloating worse with bowel movements. No other interval changes. Patient History Medical History Colon polyps (~2017) Eczema Hearing loss Hypertension Measles (~1961) Pneumonia Uterine infection (~1977) Vision disorder Surgical History Anesthesia History of biopsy (09/05/20) History of ectopic History of hysteroscopy (09/05/20) Hx of laparoscopy (09/16/20) Family & Social History Family History Father Cancer Mother History of heart disease Brother Diabetes mellitus History of heart disease Liver disease Grandfather History of heart attack Social History: household members spouse Prior Living Arrangements House Safety & Behavioral: Feels Safe in Current Yes Environment Been Physically Hurt or No Threatened By a Person Suicidal Ideation Description None Suicide Plan Description No Plan Tobacco & Substance use: Smoking Status Former smoker alcohol intake current alcohol intake frequency a few times a week Substance Use Type marijuana Meds Home Medications and Allergies Home Medications Medication Instructions Recorded Confirmed Type aspirin 81 mg tablet,delayed 81 mg PO DAILY 07/18/20 01/31/21 History release (Adult Low Dose Aspirin) naproxen sodium 220 mg capsule 220 mg PO BID PRN 09/05/20 01/26/21 History (Aleve) famotidine 20 mg tablet 20 mg PO DAILY #30 tab 10/25/20 01/31/21 Rx lisinopril 20 1 tab PO DAILY 01/17/21 01/31/21 History mg-hydrochlorothiazide 25 mg tablet erythromycin 500 mg tablet 1,000 mg PO Q8H #6 tab 01/24/21 01/31/21 Rx metronidazole 500 mg tablet 1,000 mg PO TID #6 tab 01/24/21 01/31/21 Rx Allergies Allergy/AdvReac Type Severity Reaction Status Date / Time No Known Drug Allergies Allergy Verified 01/17/21 10:50 Exam Vital Signs (past 8 hours): - 10/27/21 07:17 Temperature 97.6 F Pulse Rate 79 Respiratory Rate 16 Blood Pressure 138/85 Pulse Oximetry 99 Oxygen Delivery Method Room Air Narrative Exam Narrative: Exam Narrative:?Constitutional-She is oriented to person, place and time. No apparent distress Cardiovascular- regular rate, no peripheral edema Pulmonary-unlabored respiratory effort, no audible wheezing Abdominal-soft, non-tender, non-distended Musculoskeletal-no cyanosis or clubbing Neurological-nonfocal, normal strength throughout, Skin-warm and dry Objective Labs Labs: Laboratory Results - last 24 hr 01/31/21 06:55 SARS-CoV-2 (PCR) Negative Assessment & Plan Assessment and plan (1) Diverticular stricture: Status: Acute Assessment & Plan narrative: 65F with complicated diverticulitis here for elective laparoscopic sigmoid colectomy. Technical details of the operation were discussed with the patient. Operative risks including bleeding, infection, damage to surrounding structures, anastamotic leak, need for possible diverting ostomy were discussed. Her questions have been answered and she is in agreement with this plan. Time Spent With Patient Critical Care time: I spent a total of [] minutes of critical care time on this patient's care today; this time is exclusive of procedural time.
--- NOTE | 2021-01-31 07:44 | PM.PREOP ---
Pre-operative Note COVID-19 COVID-19 status: Negative Result date/Date tested (Pos, Neg/Pending): 01/31/21 Interval Note History & Physical reviewed/Exam performed by Physician: Yes Changes to H&P: No
[2021-01-31] MEDS: PIPERACILLIN/TAZO 4.5 GM in SODIUM CHLORIDE 0.9% 100 ML 200 ML IV (08:15)
--- NOTE | 2021-01-31 08:36 | P.OP_ITS ---
Procedure & Clinicians Procedure: Cystoscopy with bilateral lighted ureteral catheter placement, placement of Ku catheter. Same procedure as scheduled: Yes Indications: This Is a very pleasant 65-year-old female who is to undergo sigmoid colectomy by Dr. Hampton, he has requested that bilateral lighted ureteral catheters be placed to aid in identification and protection of the ureters. The patient has been counseled regarding the procedure, risks, alternatives and wishes to proceed. Informed consent has been obtained. The risks to include but not limited to bleeding, infection, injury to surrounding structures, ureteral perforation, bladder perforation, need for future procedures. Surgeon: René Rocha Click Yes if Unassisted: Yes Anesthesia Type: General Operative Notes Findings: External genitalia were normal. Urethra was normal along its length. Ureteral orifices were normal position with clear efflux. Bladder mucosa was normal without pathologic lesion. There was mild trabeculation the ureteral lighted catheters were left in good position confirmed by fluoroscopy. Closure Type: not applicable Specimen(s): none sent Prosthetic devices, grafts, tissues, transplants, or devices: Bilateral Brian lighted ureteral catheters were left in place as well as a 16 Bulgarian 5 cc Ku catheter with 10 cc in the balloon. Estimated Blood Loss (mL): 0 Blood products transfused: none Procedure in detail: Procedure in detail: After informed consent was obtained the patient was identified and brought to the operating room. The patient was then placed in a supine position on the operating room table and anesthesia was induced and maintained. Patient was then transitioned to the lithotomy position, prepped with a sterilizing prepped, she was then draped in a sterile fashion. After prepping, draping and ensuring an adequate level of anesthesia a 21 Bulgarian cystoscope was passed through the urethra and into the bladder. Cystoscopy was then performed with a 30 and 70 degree lens. The ureteral orifices were identified and with the use of a ?dual bridge ?a ureteral catheter was passed up and into the left collecting system under fluoroscopic visualization. With this catheter in appropriate position attention was then turned to the right side where the ureteral catheter was passed up and into the collecting system under fluoroscopic visualization. The scope was then backed out and the catheters left in place. The fiberoptic portion of the catheters were then passed through the catheter and into appropriate position. These were secured in place with Tegaderm. A 16 Bulgarian Ku catheter was then passed through the urethra into the bladder and the balloon filled with 10 cc of sterile water hernia was placed to gravity drainage. The ureteral catheters were then secured to the Ku with a Tegaderm. At this point the patient went on to procedure by Dr. Hampton which will be dictated under separate cover. The patient tolerated my procedure well and there were no complications Complications: none Post-operative Condition: stable Disposition: other (Per Dr. Hampton) Plan for aftercare: Aftercare to be determined by Dr. Hampton.
[2021-01-31] MEDS: BUPIVACAINE 0.25% (PF) VIAL 30 ML INJ (08:54)
[2021-01-31] MEDS: MINERAL OIL LIGHT TOPICAL 10 ML TOP (08:55)
[2021-01-31] MEDS: PIPERACILLIN/TAZO 3.375 GM in SODIUM CHLORIDE 0.9% 100 ML 25 ML IV ×2 (10:26→18:48)
--- NOTE | 2021-01-31 11:06 | SUR.OPER ---
Lithotomy on padded OR bed, head on pillow. Arms padded and tucked with armsheet. Legs secured in padded yellow fins stirrups.
--- NOTE | 2021-01-31 12:08 | SUR.OPER ---
bass removed at end of procedure per dr. mills. reinserted at 1210 by dank rollins RN
--- NOTE | 2021-01-31 13:13 | SUR.PHASEI ---
1221 hrs: Pt arrives at PACU, breathing unassisted. Report from Dr Armijo and LABORER VINEYARDTAMI Carlos.
--- NOTE | 2021-01-31 13:30 | PM.OP.1 ---
Operative Date/Time/Diagnoses Date of procedure: 01/31/21 Time of procedure: 13:30 Pre-op diagnosis: colonic stricture diverticulitis complicated Post-op diagnosis: same Procedure & Clinicians Procedure: laparoscopic assisted sigmoid colectomy Same procedure as scheduled: Yes Indications: 65 yo F hx diverticulitis with abscess underwent laparoscopic drainage of intra abdominal abscess developed a stricture of the sigmoid colon. Surgeon: Ben Hampton Manufacturing Project Engineer: Og Craft Anesthesia Type: General Operative Notes Findings: long stricture within the sigmoid colon no mass. Dense pelvic adhesions. Specimen(s): other (sigmoid colon) Estimated Blood Loss (mL): 50 Procedure in detail: The patient was brought to the operating room and placed supine on the table. Bilateral lower extremity compression devices were applied. General anesthesia was induced and they were intubated with an endotracheal tube. They were placed in the lithotomy position and prepped and draped in sterile fashion. A bass catheter was placed under sterile condition and lighted ureteral stents by Dr. Rocha of Urology. She Received 3.375 g of Zosyn prior to skin incision. Time-out was performed. An infraumbilical 1 cm incision was made, the umbilical stalk was elevated, the fascia was sharply incised and the abdomen was entered atraumatically. Pneumoperitoneum was established. The laparoscope was inserted into the abdomen, inspection was made there was no evidence of injury upon entry. 5 mm ports were placed suprapubic, left lower quadrant and right lower quadrant. There were significant adhesions between the the sigmoid colon and the left pelvic sidewall consistent with a history perforated diverticulitis with abscess. The attachments between the sigmoid colon and the side wall were taken with electrocautery and dissection was carried along the white line of Toldt towards the splenic flexure. I turned attention back to the pelvis. The sigmoid colon was densely adherent to the left pelvic wall. I made an incision in the left lower quadrant to accomodate my finger and attempted to mobilize the colon off the wall with blunt dissection but was not successful. Therefore a limited laparotomy was made. A point of soft pliable tissue above the sigmoid colon was selected and the bowel was divided with the KOSTAS stapler blue load. Using the cut end as a handle the sigmoid was followed into the pelvic and the adhesions were carefully taken down with sharp dissection. The ureter was palpable by the stent and visable and was kept posterior and out of harms way. The mesentery to the sigmoid colon was dived with the ligature close to the bowel wall. This was continued down to the rectosigmoid junction were the tatto was visiable and the colonic tissue was soft and pliable. The distal transection was made with curved TA stapler with a bowel staple load. The specimen was passed off the field labeled sigmoid colon. A bowel clamp was placed carefully over the proximal colon and the staple line was excised. A 25 mm sized fit snugly. A 3-0 Prolene suture was pursestrung and a 25 mm EEA anvil was placed. The EEA stapler was advanced through the rectum and its point was deployed under direct visualization through the rectal staple line. Ensuring that the colon mesentery was without twist, the anvil and stapler were mated and the anastomosis was completed without tension. The stapler was removed and inspection of the anastomotic donuts demonstrated a normal proximal and distal doughnut. The proximal bowel was occluded, the pelvis filled with saline and insufflation of the rectum demonstrated no leak. The abdomen was copiously irrigated and hemostasis checked. The midline fascia was closed with #1 PDS running fashion. The subcutaneous tissues were reapproximated using 3 0 Vicryl, skin closed with 3-0 Monocryl. The fascia of the left lower quadrant was closed with 0 Vicryl in figure 8 fashion. The laparoscopic port incisions were closed with 4-0 Monocryl. The skin was sealed with Dermabond. The sponge instrument count at the end of the operation was correct. The patient emerged from general anesthesia, extubated and transferred to the postoperative care unit in stable condition. Complications: none Post-operative Condition: stable Disposition: same day surgery
[2021-01-31] MEDS: LACTATED RINGERS 1,000 ML 100 ML IV ×3 (13:35→15:23)
--- NOTE | 2021-01-31 15:13 | PC.NURSE ---
Patient is Alert and oriented x3. She is comfortable and denies pain at this time. The only discomfort that she states is from her bass catheter and feeling like she has to continuously void. states that it is fine if patient wants us to remove the bass in a few hours. Her urine output is minimal now but she got up to the floor from Pacu a bit before 1400. Patient has two small incisions from where they attempted to do laproscopic surgery, both have ss and are cdi and open to air. Patient also has a midline incision that is open to air with ss and cdi. She is groggy, put on 2l of oxygen and her sats are 93 and up. Her abdomen is distended but soft and patient is wearing an abdominal binder for comfort.
--- NOTE | 2021-01-31 15:30 | PT.IIE ---
Current Diagnoses Other intestinal obstruction unspecified as to partial versus complete obstruction (01/31/21) Surgery Performed Operation Date: 01/31/21 07:45 Actual Procedures s Placement of Ureteral Stent(Bilateral) - René Rocha MD p Laparoscopically Assisted Sigmoid Colectomy, Converted to Open Sigmoid Colectomy - Ben Hampton MD Surgical History (Last Reviewed 01/31/21 @ 07:39 by Ben Hampton MD) Anesthesia History of ectopic Medical History (Last Reviewed 01/31/21 @ 07:39 by Ben Hampton MD) Colon polyps (~2017) Eczema Hearing loss Hypertension Measles (~1961) Pneumonia Uterine infection (~1977) Vision disorder Physical Therapy Inpatient Evaluation/Re-Eval M1 PT/OT-IP Prior Functional Status Start: 01/31/21 16:46 Freq: NEEDED Status: Active Protocol: Document 01/31/21 15:30 AB (Rec: 01/31/21 16:57 AB [id number]) Medical Review Prior Functional Status Medical History Reviewed Yes Communication able to make needs known Mobility and Gait pt stated that she is independent with all mobilities and ambulation without AD Social History Household Members spouse Living Arrangements House Number of Floors (Floors) One Floor Number of Stairs To Enter/Railing? 4 steps without rails to enter the house Home Environment High Toilet,Walk in Shower Home Equipment Hand Held Shower,Grab Bars In Shower Additional Social History Comment lives at [facility] M2 PT-IP Current Condition Start: 01/31/21 16:46 Freq: NEEDED Status: Active Protocol: Document 01/31/21 15:30 AB (Rec: 01/31/21 16:57 AB [id number]) Physical Therapy Current Condition Current Condition Evaluation Date 01/31/21 Treatment Diagnosis s/p colectoy; difficulty in walking Onset Date 01/31/21 M3 PT-IP Subjective Start: 01/31/21 16:46 Freq: NEEDED Status: Active Protocol: Document 01/31/21 15:30 AB (Rec: 01/31/21 16:57 AB [email or web address]) Subjective Physical Therapy Visit Type Type Initial Evaluation Visit Start Time 15:30 Visit Stop Time 16:15 Total Visit Minutes 45 Number of ORDNANCE OFFICER Visits 0 Physical Therapy Visit Comments Patient Comments agreeable to do PT Therapy Pain Assessment Pain When Pain Assessed At Rest Pain Present Pain Present Pain Reported Location Abdomen Intensity 6 Scale Used 10/10 with mobility Pain Behaviors Facial Grimacing,Holding Area, Wincing Pain Management Techniques Distraction,Modification of Treatment,Re-positioning, Timing of Activity with Medications M4 PT-IP Mobility and Gait Start: 01/31/21 16:46 Freq: NEEDED Status: Active Protocol: Document 01/31/21 15:30 AB (Rec: 01/31/21 16:57 AB [id number]) PT-Bed Mobility Assessment Rolling Type of Rolling Log Rolling Level of Assist Minimal Assistance Supine to Sit Supine to Sit Moderate Assistance Sit to Supine Sit to Supine Minimal Assistance PT-Transfer Assessment Sit to and From Stand Sit to and from Stand Minimal Assistance,1 Person Assistance,Use of Upper Extremities Equipment Transfer Assistive Device Gait Belt,Front Wheeled Walker Orthotic/Prosthetic Devices or Brace: No Comments Mobility Comments educated pt on abdominal precautions and log roll bed mobility. BP supine: 133/76. O2 sat RA 92% pt completed supine to sit mod A and max cues. pt was able to sit on EOB SBA to CGA. C/o dizziness. BP 131/76 O2 sat 97%. pt completed sit to stand min A and cues. marched in placed min A using FWW but stated that, that is all she can do and want to go back to bed. pt took side steps using FWW towards HOB min A. completed sit to supine min A and cues. positioned in bed. call light and table placed within reach. Gait Assessment Comments Gait Comments marched in place using FWW for support and able to take side steps towards HOB using FWW for positioning PT-Balance Assessment Sitting Balance and Reactions Static Sitting Balance Ability Good Dynamic Sitting Balance Ability Fair Standing Balance and Reactions Static Standing Balance Ability Fair Dynamic Standing Balance Ability Fair Device Used FWW M5 PT-IP Objective Assessments Start: 01/31/21 16:46 Freq: NEEDED Status: Active Protocol: Document 01/31/21 15:30 AB (Rec: 01/31/21 16:57 AB [email or web address]) Orientation Orientation/Cognition Level of Alertness Alert Orientation Name,Age,Birthday,Month,Date, Year,Day of Week,Place, Situation Language Function Ability Hard of Hearing Safety Awareness Decreased Safety Awareness Memory Description No Deficits Noted Gross Range of Motion Lower Extremity ROM Assessment Within Functional Limits Strength Lower Extremity Strength Hip 4-/5 Knee 4-/5 Sensation Assessment Sensation Gross Sensation WNL Muscle Tone Muscle Tone WNL Yes M6 PT-IP Treatment Start: 01/31/21 16:46 Freq: NEEDED Status: Active Protocol: Document 01/31/21 15:30 AB (Rec: 01/31/21 16:57 AB [id number]) Physical Therapy Treatment Education Education Provided Precautions,Safety M7 PT-IP Assessment and Plan Start: 01/31/21 16:46 Freq: NEEDED Status: Active Protocol: Document 01/31/21 15:30 AB (Rec: 01/31/21 16:57 AB [email or web address]) PT Summary Assessment and Plan Potential Rehabilitation Potential Good Status of Condition at Evaluation Evolving Summary Impairments Pain,ROM,Strength,Balance, Coordination,Sensation,Tone, Cognition,Bed Mobility, Transfers,Gait,Activity Tolerance Assessment Summary pt s/p colectomy POD 0. pt requiring min to mod A with mobility and unable to tolerate much activity at this time. will continue to assess progress for safe d/c plan. pt will likely progress during hospital stay. pt plans to go home and will have her spouse assist her at home . Goals Bed Mobility Goal Independent Transfer Goal Independent,Front Wheeled Walker Gait Goal Independent,Front Wheel Walker Gait Distance 150 Other Goals improve ambulation without AD 200 ft SBA up/down 4 steps without rails SBA Days to Meet Goals 10 Frequency of Treatment Frequency Of Treatment Once a Day Treatment Plan Physical Therapy Treatment Plan Bed Mobility Training,Transfer Training,Gait Training, Therapeutic Exercise,Balance Retraining,Post Op Education, Discharge Planning,Hot or Cold Pack,Neuromuscular Re-ed, Coordination Retraining,Manual Therapy Precautions Abdominal Surgery Precautions Log Roll,Lifting Restrictions, Gait Belt above Incisional Area Recommendations To Nursing Amount of Assist Needed 1 Person Assist Discharge Recommendations PT Discharge Recommendations Home with 28/10 Assist Available,Home Health Equipment Needed for Home Before FWW Discharge Transportation Needs at Discharge Private Vehicle,Wheelchair/ Cabulance
[2021-01-31] MEDS: OXYCODONE IR 5 MG TABLET PO (15:43)
[2021-01-31] MEDS: KETOROLAC 30 MG/ML VIAL IV (17:58)
[2021-01-31] MEDS: ACETAMINOPHEN 325 MG TABLET 650 MG PO (17:59)
[2021-01-31] MEDS: MORPHINE 2 MG/ML INJ IV (18:48)
--- NOTE | 2021-01-31 19:41 | PC.NURSE ---
Addendum entered by Nanda Ferguson R.N. 01/31/21 22:55: 1800: pt's pain is not well controlled with oxycodone 5mg, toradol and tylenol. notified provider, VTO for morphine 2mg PRN. Original Note: bass bag was leaking and there was urine on the floor, replaced bass bag.
[2021-01-31] MEDS: DOCUSATE 100 MG CAPSULE PO (21:26)
[2021-01-31] MEDS: CALCIUM CARBONATE 500 MG TAB 1000 MG PO (21:34)
--- NOTE | 2021-01-31 21:39 | PC.NURSE ---
started a new IV on R.FA for antibiotic to be infused.
[2021-02-01] VITALS (13 sets, daily range): BP systolic 103–138; BP diastolic 53–93; PULSE 61–73; RESP 16–18; TEMP 36.1–37.2; O2SAT 92–97
[2021-02-01] MEDS: LACTATED RINGERS 1,000 ML 100 ML IV (00:11)
[2021-02-01] MEDS: MORPHINE 2 MG/ML INJ IV ×4 (00:11→20:49)
[2021-02-01] MEDS: ACETAMINOPHEN 325 MG TABLET 650 MG PO ×5 (00:22→23:36)
[2021-02-01] MEDS: PIPERACILLIN/TAZO 3.375 GM in SODIUM CHLORIDE 0.9% 100 ML 25 ML IV ×2 (03:05→17:44)
[2021-02-01] MEDS: CALCIUM CARBONATE 500 MG TAB 1000 MG PO (04:22)
[2021-02-01 06:05] LABS: Add Manual Diff / Slide Review NO; Basophils Absolute Auto 0 /uL (0-100); Basophils Percent Auto 0.1 % (0-2); Eosinophils Absolute Auto 0 /uL (0-450); Hemoglobin 11.5 g/dL (12.0-16.0); Lymphocytes Absolute Auto 1200 /uL (1100-4500); Lymphocytes Percent Auto 10.6 % (25-40); Mean Corpuscular HGB Conc 33.7 % (30-36); Mean Corpuscular Hemoglobin 32.6 PG (26-34); Mean Corpuscular Volume 96.7 fL (80-100); Monocytes Absolute Auto 1100 /uL (0-900); Monocytes Percent Auto 9.6 % (3-14); Neutrophils Absolute Auto 9300 /uL (1500-7000); Neutrophils Percent Auto 79.7 % (50-75); Platelet Count 231 X10^3/uL (150-400); Red Blood Cell Count 3.51 X10^6/uL (4.0-5.2); Red Cell Distribution Width 13.9 % (11.6-14.8); White Blood Cell Count 11.7 X10^3/uL (4.5-11.0)
[2021-02-01 06:12] LABS: BUN Creatinine Ratio 19.3 (6-22); Blood Urea Nitrogen 17 mg/dL (7-17); Calcium 8.6 mg/dL (8.4-10.2); Carbon Dioxide 27 mmol/L (22-32); Chloride 101 mmol/L (98-107); Estimated Glomerular Filt Rate > 60.0 mL/min (>60); Glucose 107 mg/dL (80-110); HEMOLYSIS < 15 (0-50); Magnesium 1.9 mg/dL (1.6-2.3); Phosphorous 3.5 mg/dL (2.8-4.1); Potassium 3.8 mmol/L (3.4-5.1); Sodium 132 mmol/L (137-145)
--- NOTE | 2021-02-01 09:08 | PM.PNPO.1 ---
Subjective Subjective Date Patient Seen: 02/01/21 Time Patient Seen: 09:08 Interval history: POD 1 sigmoidectomy. No nausea. Tolerating clear liquid diet. No flatus or BM. Has been out of bed. Pain controlled. Exam Vital Signs (past 8 hours): - 02/01/21 01:15 02/01/21 03:48 02/01/21 05:00 Temperature 97.1 F L Pulse Rate 68 Respiratory Rate 16 Blood Pressure 103/53 L Pulse Oximetry 97 92 97 02/01/21 07:45 Temperature 96.9 F L Pulse Rate 61 Respiratory Rate 16 Blood Pressure 114/60 Pulse Oximetry 94 Oxygen Delivery Method Room Air Oxygen Flow Rate 0 Narrative Exam Narrative: Gen-Adult woman alert and oriented Abdomen-Soft appropriately tender to palpation Ext-WWP Objective Labs Result Diagrams: 02/01/21 05:50 02/01/21 05:50 Labs: Laboratory Results - last 24 hr 02/01/21 02/01/21 05:50 05:50 WBC 11.7 H RBC 3.51 L Hgb 11.5 L Hct 34.0 L MCV 96.7 MCH 32.6 MCHC 33.7 RDW 13.9 Plt Count 231 Neut % (Auto) 79.7 H Lymph % (Auto) 10.6 L [place] % (Auto) 9.6 Eos % (Auto) 0.0 L Baso % (Auto) 0.1 Neut # (Auto) 9300 H Lymph # (Auto) 1200 [place] # (Auto) 1100 H Eos # (Auto) 0 Baso # (Auto) 0 Sodium 132 L Potassium 3.8 Chloride 101 Carbon Dioxide 27 BUN 17 Creatinine 0.88 Estimated GFR > 60.0 BUN/Creatinine Ratio 19.3 Glucose 107 Calcium 8.6 Phosphorus 3.5 Magnesium 1.9 PFSH Medical History Colon polyps (~2018) Eczema Hearing loss Hypertension Measles (~196) Pneumonia Uterine infection (~1977) Vision disorder Surgical History Anesthesia History of biopsy (09/05/20) History of ectopic History of hysteroscopy (09/05/20) Hx of laparoscopy (09/16/20) Family History Father Cancer Mother History of heart disease Brother Diabetes mellitus History of heart disease Liver disease Grandfather History of heart attack Social History household members: spouse Smoking Status: Former smoker alcohol intake: current additional social history: QUIT DATE SMOKIN05/07/1998 Assessment & Plan Post-op Postoperative Procedures: Procedures Operation Date: 01/31/21 07:45 Actual Procedure Side Surgeon s Placement of Ureteral Stent Bilateral René Rocha MD p Laparoscopically Assisted Sigmoid Colectomy, Converted to Open Sigmoid Colectomy Ben Hampton MD Postoperative status narrative: 65 yo woman POD 1 elective sigmoidectomy for complicated diverticulitis. Recovering appropriately. -Clear liquid diet. Advance once return of bowel function -Saline lock -Remove bass catheter -Out of bed ambulate PT/OT -Lovenox & SCDs for VTE prophylaxis -Perioperative Zosyn for a total of 24 hrs
[2021-02-01] MEDS: hydroCHLOROthiazide 25 MG TABLET PO (10:04)
[2021-02-01] MEDS: ENOXAPARIN 40 MG/0.4 ML SYRINGE SUBCUT (10:04)
[2021-02-01] MEDS: lisinopriL 20 MG TABLET PO (10:04)
[2021-02-01] MEDS: FAMOTIDINE 20 MG TABLET PO (10:04)
[2021-02-01] MEDS: DOCUSATE 100 MG CAPSULE PO ×2 (10:05→20:48)
--- NOTE | 2021-02-01 10:48 | CM.DANOTE ---
DCP: Case received, EMR reviewed and met with patient. Introduced self and role. Was able to obtain information regarding patient's baseline activity status prior to her surgery. DCP assessment completed with information currently available. Patient is a 65 year old female who admitted yesterday morning to the care of the surgical team. PCP: Dr. Walker. Payer: confirmed: Medicare/[employer] Preferred. Patient came to the hospital via private vehicle for a surgical procedure. She had laparoscopic assisted signoid colectomy secondary to diverticular disease. Met with patient in her room. She was laying in bed, alert and oriented. She confirmed that at her baseline prior to surgery, she is independent. She resides in [place] on [facility] with her spouse, Christiano. She is employed as well. She has worked with P.T. P: DCP to continue to follow for any needs. Patient should be able to go home when she is deemed medically stable. Elizabet Polanco RN/Forestry Extension Specialist Discharge Planning/Care Management Advanced directive, confirm from FAMILY Start: 01/31/21 16:26 Freq: Q24H Status: Active Protocol: Document 01/31/21 16:26 HCW (Rec: 01/31/21 21:43 HCW [id number]) Advance Directive, confirm on record Time 21:43 Person contacted patient Copy received No Advanced directive available on record No CM Discharge Assessment Start: 02/01/21 10:47 Freq: Status: Active Protocol: Document 02/01/21 10:47 (Rec: 02/01/21 10:48 [id number]) Discharge Planning Assessment Assigned Talent Acquisition Lead Elizabet Polanco RN/Forestry Extension Specialist Advance Directives? No History Provided By Patient,Medical Record Prior Living Arrangements House Household Members spouse Type of transporation used prior to Drives own vehicle admit Independent with ADL's Yes Is patient alert and oriented? Yes Caregiver for Another No Barriers to Discharge No Discharge Plan Home Transportation Arrangement Spouse Referrals Initiated None needed Whiteboard Updated in Patient Room with Yes name and ext. # of Talent Acquisition Lead Review Status In Process Next Review Type Continued Stay Review Pre-Anesthesia Assessment Start: 01/26/21 13:53 Freq: Status: Complete Protocol: Document 01/26/21 13:53 CAB (Rec: 01/26/21 14:36 CAB [id number]) Pre-Anesthesia Assessment Patient Information Reviewed Via Phone Assessment Assessment Completed With Patient Comment COVID screen RAPID on admit per pt Primary Care Provider Isabela Walker Seen Specialist in Last 12 Months Yes Specialist Seen General surgeon,Sack Sewer, Urologist Primary Language Welsh Preferred Language Welsh Bowling Ball Patcher Required No Height 5 ft 4 in Weight 150 lb Body Mass Index (BMI) 25.7 Hearing Ability Hard of Hearing Visual Assist Glasses Dentition Type Teeth, Natural Present Barriers to Learning None Hx Anesthesia Reactions No Hx Family Anesthesia Reaction No Hx Malignant Hyperthermia No Hx Blood Transfusions No Hx Blood Transfusion Reaction No Anesthesia Review Requested No Pattern Hanger No alcohol intake current alcohol intake frequency a few times a week Smoking Status Former smoker how long ago did patient quit smoking Quit 05/07/98 Substance Use Type marijuana Comment Advised not to smoke marijuana 24 hours prior Pain Present Pain Reported Comment Intermittent, abdominal Musculoskeletal Symptoms Back Pain History of Falling (Recent or History of Yes ) Patient is completely paralyzed or No completely immobile Mental Status Oriented to own ability Is patient on oxygen? No Does patient have SALINAS/SOB No Hx Sleep Apnea No CPAP/BIPAP use not prescribed Currently Taking a Beta Mahamed No Hx Chest Pain No Hx SOB No Hx Syncope or Dizziness No Anti-Coagulant Therapy Yes: ASA 81mg daily for general health Has a Chief Engineer Waterworks No Cardiac Testing No Hx Pacemaker/ICD No Pacemaker Rep Required? No Diet Type At Home Regular dysphagia No Gastrointestinal Symptoms Abdominal Pain Urinary Catheter Present No Hx Urinary Self Catheterization No Diabetes No Patient No Lactating No Hx Drug Resistant Organism No Presence of External or Internal Medical No Devices Have you had any close contact with No someone diagnosed with COVID-19? Marital Status Lives With spouse Prior Living Arrangements House Number of Floors (Floors) One Floor Support System Spouse Does the Patient Have Assistance After Yes Surgery Patient Discharge Plan Description Return Home Comment Lives on [facility] Additional comment Pt advised 4 day length of stay per surgeon Feels Safe in Current Environment Yes Been Physically Hurt or Threatened By a No Person in Current Environment Do you have thoughts of harming yourself None or others? Are you currently considering suicide? No Do you have a plan to hurt yourself or No Plan others? Do You Have Any Spiritual Beliefs That No May Affect Your HC Choices? Do You Have Any Cultural Practices That No May Affect Your HC Choices? Who Can We Speak to About Patient's Care Family, friends Identifying Code for Release of Patient Declines to issue Information Health Care Proxy/Next of Kin Christiano () Health Care Proxy Emergency Contact Name Christiano () Emergency Contact Advance Directives? No Power of Game Moderator Yes Power of Game Moderator Name Christiano () Power of Game Moderator PAC Instructions Medications to take/avoid, Nasal antibiotic,No ETOH/ petroleum product on skin DOS, NPO,Post-op transportation,Pre -surgical wash,Sturdy shoes/ comfortable clothes,Do not bring valuables and remove jewelry
--- NOTE | 2021-02-01 10:50 | PT.IPTN ---
Current Diagnoses Other intestinal obstruction unspecified as to partial versus complete obstruction (01/31/21) Surgery Performed Operation Date: 01/31/21 07:45 Actual Procedures s Placement of Ureteral Stent(Bilateral) - René Rocha MD p Laparoscopically Assisted Sigmoid Colectomy, Converted to Open Sigmoid Colectomy - Ben Hampton MD Physical Therapy Treatment Note M2 PT-IP Current Condition Start: 01/31/21 16:46 Freq: NEEDED Status: Active Protocol: Document 01/31/21 15:30 AB (Rec: 01/31/21 16:57 AB [id number]) Physical Therapy Current Condition Current Condition Evaluation Date 01/31/21 Treatment Diagnosis s/p colectoy; difficulty in walking Onset Date 01/31/21 M3 PT-IP Subjective Start: 01/31/21 16:46 Freq: NEEDED Status: Active Protocol: Document 02/01/21 10:50 AB (Rec: 02/01/21 12:49 AB [id number]) Subjective Physical Therapy Visit Type Type Treatment Note Visit Start Time 10:50 Visit Stop Time 11:15 Total Visit Minutes 25 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 Physical Therapy Visit Comments Patient Comments pt requesting to use the toilet Therapy Pain Assessment Pain When Pain Assessed At Rest Pain Present Pain Present Pain Reported Location Abdomen Scale Used pain scale not stated Pain Behaviors Facial Grimacing,Guarding, Wincing Pain Management Techniques Distraction,Modification of Treatment,Re-positioning, Timing of Activity with Medications M4 PT-IP Mobility and Gait Start: 01/31/21 16:46 Freq: NEEDED Status: Active Protocol: Document 02/01/21 10:50 AB (Rec: 02/01/21 12:49 AB [id number]) PT-Bed Mobility Assessment Rolling Type of Rolling Log Rolling Level of Assist Standby Assistance Supine to Sit Supine to Sit Standby Assistance,Bedrails PT-Transfer Assessment Sit to and From Stand Sit to and from Stand Minimal Assistance,1 Person Assistance,Use of Upper Extremities Equipment Transfer Assistive Device Gait Belt,Front Wheeled Walker Orthotic/Prosthetic Devices or Brace: No Transfers Transfer Destination Toilet Transfer Technique ambulated using FWW Transfer Ability Level of Assist Minimal Assistance,Use of Upper Extremities Comments Mobility Comments completed supine to sit log roll SBA with cues and pt used bed rail to assist. pt was able to sit on EOB SBA. completed sit to stand min A and cues and ambulated using FWW to the toilet min A. decrease LE elevation and decrease pace. completed sit to stand from the toilet uisng grab bar min A and ambulated to the sink using FWW min A. pt was able to maintain standing CGA while completing handwashing. pt walked to the chair using FWW min A. agreed to stay seated on chair but refused further activity. stated that , that is all she can do for now. instructed to ask the nurse to do more ambulation with her later today and agreed. positioned pt on chair. call light and table placed within reach. Gait Assessment Gait Gait Assistance Required: Minimum Assistance Distance (Feet) 15 Able to Maintain Weight Bearing Status No During Gait Assistive Devices Assistive Device Gait Belt,Front Wheeled Walker Orthotic/Prosthetic Devices or Brace: No Gait Deviations General Gait Pattern Decreased Stride Length, Decreased Feet Clearance,Step- to Gait Factors Limiting Gait Function Factors Limiting Gait Function Decreased Activity Tolerance, Decreased Strength,Limited Range of Motion,Pain,Poor Balance,Poor Safety Awareness Comments Gait Comments pls refer to mobility section for details M5 PT-IP Objective Assessments Start: 01/31/21 16:46 Freq: NEEDED Status: Active Protocol: Document 01/31/21 15:30 AB (Rec: 01/31/21 16:57 AB [id number]) Orientation Orientation/Cognition Level of Alertness Alert Orientation Name,Age,Birthday,Month,Date, Year,Day of Week,Place, Situation Language Function Ability Hard of Hearing Safety Awareness Decreased Safety Awareness Memory Description No Deficits Noted Gross Range of Motion Lower Extremity ROM Assessment Within Functional Limits Strength Lower Extremity Strength Hip 4-/5 Knee 4-/5 Sensation Assessment Sensation Gross Sensation WNL Muscle Tone Muscle Tone WNL Yes M6 PT-IP Treatment Start: 01/31/21 16:46 Freq: NEEDED Status: Active Protocol: Document 02/01/21 10:50 AB (Rec: 02/01/21 12:49 AB [id number]) Physical Therapy Treatment Education Education Provided Precautions,Safety M7 PT-IP Assessment and Plan Start: 01/31/21 16:46 Freq: NEEDED Status: Active Protocol: Document 02/01/21 10:50 AB (Rec: 02/01/21 12:49 AB [id number]) PT Summary Assessment and Plan Potential Rehabilitation Potential Good Summary Impairments Pain,ROM,Strength,Balance, Coordination,Sensation,Tone, Cognition,Bed Mobility, Transfers,Gait,Activity Tolerance Progress Towards Goals Slow Progress due to Pain,Slow Progress due to Activity Tolerance Assessment Summary pt requiring min A with mobility using FWW but unable to tolerate much activity. pt plans to go home and spouse to assist her. PT will continue to work pt towards goals to improve mobility independence. pt also has steps to enter the house and needs to be completed prior to d/c home. will conduct caregiver training when appropriate. Goals Bed Mobility Goal Independent Transfer Goal Independent,Front Wheeled Walker Gait Goal Independent,Front Wheel Walker Gait Distance 150 Other Goals improve ambulation without AD 200 ft SBA up/down 4 steps without rails SBA Days to Meet Goals 10 Frequency of Treatment Frequency Of Treatment Once a Day Treatment Plan Physical Therapy Treatment Plan Bed Mobility Training,Transfer Training,Gait Training, Therapeutic Exercise,Balance Retraining,Post Op Education, Discharge Planning,Hot or Cold Pack,Neuromuscular Re-ed, Coordination Retraining,Manual Therapy Precautions Abdominal Surgery Precautions Log Roll,Lifting Restrictions, Gait Belt above Incisional Area Recommendations To Nursing Amount of Assist Needed 1 Person Assist Discharge Recommendations PT Discharge Recommendations Home with 24/ Assist Available,Home Health Equipment Needed for Home Before FWW Discharge Transportation Needs at Discharge Private Vehicle,Wheelchair/ Cabulance
[2021-02-01] MEDS: KETOROLAC 30 MG/ML VIAL IV (12:58)
--- NOTE | 2021-02-01 14:05 | OT.IP.EVAL ---
Current Diagnoses Other intestinal obstruction unspecified as to partial versus complete obstruction (01/31/21) Surgery Performed Operation Date: 01/31/21 07:45 Actual Procedures s Placement of Ureteral Stent(Bilateral) - René Rocha MD p Laparoscopically Assisted Sigmoid Colectomy, Converted to Open Sigmoid Colectomy - Ben Hampton MD Past Medical History (Last Reviewed 01/31/21 @ 07:39 by Ben Hampton MD) Colon polyps (~2017) Eczema Hearing loss History of biopsy (09/05/20) History of hysteroscopy (09/05/20) Hx of laparoscopy (09/16/20) Hypertension Measles (~1961) Pneumonia Uterine infection (~1977) Vision disorder Surgical History (Last Reviewed 01/31/21 @ 07:39 by Ben Hampton MD) Anesthesia History of biopsy (09/05/20) History of ectopic History of hysteroscopy (09/05/20) Hx of laparoscopy (09/16/20) Occupational Therapy Inpatient Evaluation/Re-Eval M1 PT/OT-IP Prior Functional Status Start: 01/31/21 16:46 Freq: NEEDED Status: Active Protocol: Document 02/01/21 14:06 [facility] (Rec: 02/01/21 14:19 [facility] [id number]) Medical Review Prior Functional Status Medical History Reviewed Yes Communication able to make needs known Mobility and Gait pt stated that she is independent with all mobilities and ambulation without AD Activities of Daily Living and IADL's Completely independent with all Adl,IADL, drives and works . Social History Household Members spouse Living Arrangements House Number of Floors (Floors) One Floor Number of Stairs To Enter/Railing? 4 steps without rails to enter the house Home Environment High Toilet,Walk in Shower Home Equipment Hand Held Shower,Grab Bars In Shower Additional Social History Comment lives at [facility] M2 OT-IP Current Condition Start: 02/01/21 14:06 Freq: Status: Active Protocol: Document 02/01/21 14:06 [facility] (Rec: 02/01/21 14:19 [facility] [id number]) Occupational Therapy Current Condition Current Condition Evaluation Date 02/01/21 Treatment Diagnosis s/p Colectomy Diagnosis Onset Date 01/31/21 Post Operative Precautions Abdominal Surgery Precautions Log Roll,Lifting Restrictions, Gait Belt above Incisional Area M3 OT- IP Subjective and Pain Start: 02/01/21 14:06 Freq: Status: Active Protocol: Document 02/01/21 14:06 [facility] (Rec: 02/01/21 14:19 [facility] [id number]) OT- Subjective Occupational Therapy Visit Type Type Initial Evaluation Visit Start Time 13:35 Visit Stop Time 14:05 Total Visit Minutes 30 Occupational Therapy Visit Comments Patient Comments Pt wanting to use the bathroom . Patient/Caregiver Goals TO go home. OT Pain Assessment Pain When Pain Assessed During Mobility Pain Present Pain Present Pain Reported Location Abdomen Intensity 9 Scale Used Numeric (0 - 10) M4 OT- IP ADL's Start: 02/01/21 14:06 Freq: Status: Active Protocol: Document 02/01/21 14:06 [facility] (Rec: 02/01/21 14:19 [facility] [id number]) OT [id number] Comments OT Self-Feeding Comments Pt just on clear liquids. OT ADL-Grooming General Evaluation Grooming Ability Standby Assistance Comments OT Grooming Comments Pt able to wash her hands while standing with FWW in front of the sink. Pt just needing cues to keep the FWW in front of her. OT ADL-Oral Care Comments Oral Care Comments Not performed. OT ADL-Dressing Comments OT Dressing Comments Not performed at this time. OT ADL-Toileting General Evaluation Toileting Ability Standby Assistance OT ADL-Bathing Comments OT Bathing Comments Not performed as pt too tired and states may try sponging off tomorrow. Pt states to pear picker a shower chair. M5 OT- IP IADL's Start: 02/01/21 14:06 Freq: Status: Active Protocol: Document 02/01/21 14:06 [facility] (Rec: 02/01/21 14:19 [facility] [id number]) OT-Instrumental Activities of Daily Living Home Safety Awareness Awareness of Need for Assistance at Home Good Awareness Ability to Problem Solve Emergency Able to Problem Solve Situations M6 OT- IP Functional Cognition Start: 02/01/21 14:06 Freq: Status: Active Protocol: Document 02/01/21 14:06 [facility] (Rec: 02/01/21 14:19 [facility] [id number]) Cognitive Factors Limiting Selfcare Function Cognitive Ability Level of Alertness Alert Attention Span Ability Capable of Focused Attention, Capable of Sustained Attention Ability to Follow Commands Able to Follow One Step Commands Memory Description No Deficits Noted Cognitive Comments Cognitive Assessment Comments Pt needing cues for FWW safety , where to place her hands and to have in the FWW in front of her while standing at the sink when washing her hands. OT- Vision and Hearing OT- Hearing Assessment OT- Hearing Assessment WFL OT- Vision Assessment Visual Acuity Glasses All The Time M7 OT- IP Mobility and Balance Start: 02/01/21 14:06 Freq: Status: Active Protocol: Document 02/01/21 14:06 [facility] (Rec: 02/01/21 14:19 [facility] [id number]) OT- Bed Mobility Assessment Rolling Level of Assistance Standby Assistance,Bedrails Supine to Sit Supine to Sit Assist Standby Assistance,Bedrails Sit to Supine Sit to Supine Assist Minimal Assistance,Bedrails OT-Transfer Assessment Sit to and From Stand Sit to and from Stand Contact Guard Assistance Transfers Transfer Ability Standby Assistance Technique Transfer Destination Bed,Toilet Transfer Technique Stand Step Pivot Devices Transfer Assistive Devices Gait Belt,Front Wheeled Walker Comments Mobility Comments Assist to help get her legs back into bed. Pt able to walk with FWW with close SBA and assist to manage the IV pole. OT- Balance Assessment Sitting Balance and Reactions Static Sitting Balance Ability Good Dynamic Sitting Balance Ability Good Standing Balance and Reactions Static Standing Balance Ability Good Dynamic Standing Balance Ability Fair M8 OT- IP Objective Assessments Start: 02/01/21 14:06 Freq: Status: Active Protocol: Document 02/01/21 14:06 [facility] (Rec: 02/01/21 14:19 [facility] [id number]) OT-Muscle Tone Assessment Muscle Tone WNL Yes M9 OT- IP Assessment and Plan Start: 02/01/21 14:06 Freq: Status: Active Protocol: Document 02/01/21 14:06 [facility] (Rec: 02/01/21 14:19 [facility] [id number]) OT Summary Assessment and Plan Potential Rehabilitation Potential Good Analytic Complexity at Evaluation Moderate Summary OT Impairments Pain,Balance,Functional Mobility,Grooming,Dressing, Toileting,Bathing,Toilet Transfers,Shower Transfers, Activity Tolerance Progress Towards Goals Slow Progress due to Pain,Slow Progress due to Medical Issues,Slow Progress due to Activity Tolerance Assessment Summary Pt MOD complexity and main barriers are steps, pain , and now needing one person assist for mobility and ADl needs. Pt still on clear liquids and when medically stable looking to go home with supportive . Goals Grooming Goal Independent Dressing Goal Independent Toileting Goal Independent Bathing Goal Independent Toilet Transfer Goal Independent Shower Transfer Goal Independent Days to Meet Goals 7 Frequency of Treatment Frequency Of Treatment Once a Day Treatment Plan OT Treatment Plan Functional Cognition Training, Functional Mobility,Patient/ Family Education,Discharge Planning Other Treatment Recommendations and Next sponge bath while seated Treatment Focus Discharge Recommendations OT Discharge Recommendations Home with Assistance Home Equipment Needs FWW , shower chair Transportation Needs at Discharge Private Vehicle
[2021-02-01] MEDS: OXYCODONE IR 5 MG TABLET PO (20:52)
[2021-02-02] VITALS (12 sets, daily range): BP systolic 112–146; BP diastolic 42–74; PULSE 59–81; RESP 16–18; TEMP 36.1–37.4; O2SAT 92–98
--- NOTE | 2021-02-02 00:02 | PC.NURSE ---
Patient is alert and oriented. Breath sounds CTA with RA sat of 94%. HRR. Denies nausea. BT present and abdomen is soft. Is uncertain if she has passed flatus but believes she must be as bloated feeling is easing. Steri-strips to abdomen are intact with no drainage; wearing abdominal binder. Is voiding well since catheter removed and denies dysuria, frequency or urgency. Is able to turn self in bed. Up to bathroom with walker and SBA; denies feeling weak or unsteady. Declines use of SCD's so reminded to ankle wave when awake. Fall risk score is moderate and bed alarm is activated.
[2021-02-02] MEDS: PIPERACILLIN/TAZO 3.375 GM in SODIUM CHLORIDE 0.9% 100 ML 25 ML IV ×3 (00:43→17:37)
[2021-02-02] MEDS: OXYCODONE IR 5 MG TABLET PO ×2 (03:43→11:22)
[2021-02-02] MEDS: ACETAMINOPHEN 325 MG TABLET 650 MG PO ×4 (05:55→23:39)
[2021-02-02] MEDS: MORPHINE 2 MG/ML INJ IV ×2 (05:59→21:30)
[2021-02-02] MEDS: SODIUM CHLORIDE 0.9% FLUSH 10 ML IV ×2 (06:00→08:57)
[2021-02-02 06:40] LABS: Add Manual Diff / Slide Review NO; Basophils Absolute Auto 100 /uL (0-100); Basophils Percent Auto 0.8 % (0-2); Eosinophils Absolute Auto 100 /uL (0-450); Eosinophils Percent Auto 0.8 % (2-4); Hemoglobin 11.3 g/dL (12.0-16.0); Lymphocytes Absolute Auto 2400 /uL (1100-4500); Lymphocytes Percent Auto 26.3 % (25-40); Mean Corpuscular HGB Conc 34.2 % (30-36); Mean Corpuscular Hemoglobin 33.3 PG (26-34); Mean Corpuscular Volume 97.4 fL (80-100); Monocytes Absolute Auto 900 /uL (0-900); Monocytes Percent Auto 10.2 % (3-14); Neutrophils Absolute Auto 5600 /uL (1500-7000); Neutrophils Percent Auto 61.9 % (50-75); Platelet Count 236 X10^3/uL (150-400); Red Blood Cell Count 3.39 X10^6/uL (4.0-5.2); Red Cell Distribution Width 14.3 % (11.6-14.8); White Blood Cell Count 9.1 X10^3/uL (4.5-11.0)
[2021-02-02 06:51] LABS: BUN Creatinine Ratio 15.2 (6-22); Blood Urea Nitrogen 15 mg/dL (7-17); Calcium 8.5 mg/dL (8.4-10.2); Carbon Dioxide 25 mmol/L (22-32); Chloride 104 mmol/L (98-107); Estimated Glomerular Filt Rate 56.3 mL/min (>60); Glucose 81 mg/dL (80-110); HEMOLYSIS < 15 (0-50); Phosphorous 3.1 mg/dL (2.8-4.1); Potassium 3.7 mmol/L (3.4-5.1); Sodium 134 mmol/L (137-145)
[2021-02-02] MEDS: ENOXAPARIN 40 MG/0.4 ML SYRINGE SUBCUT (08:55)
[2021-02-02] MEDS: KETOROLAC 30 MG/ML VIAL IV ×2 (08:55→21:30)
[2021-02-02] MEDS: hydroCHLOROthiazide 25 MG TABLET PO (08:55)
[2021-02-02] MEDS: FAMOTIDINE 20 MG TABLET PO (08:56)
[2021-02-02] MEDS: DOCUSATE 100 MG CAPSULE PO ×2 (08:56→18:00)
[2021-02-02] MEDS: lisinopriL 20 MG TABLET PO (08:56)
--- NOTE | 2021-02-02 09:00 | OT.IP.TRT ---
Current Diagnoses Other intestinal obstruction unspecified as to partial versus complete obstruction (01/31/21) Surgery Performed Operation Date: 01/31/21 07:45 Actual Procedures s Placement of Ureteral Stent(Bilateral) - René Rocha MD p Laparoscopically Assisted Sigmoid Colectomy, Converted to Open Sigmoid Colectomy - Ben Hampton MD Occupational Therapy Treatment Note M2 OT-IP Current Condition Start: 02/01/21 14:06 Freq: Status: Active Protocol: Document 02/01/21 14:06 [facility] (Rec: 02/01/21 14:19 [facility] [id number]) Occupational Therapy Current Condition Current Condition Evaluation Date 02/01/21 Treatment Diagnosis s/p Colectomy Diagnosis Onset Date 01/31/21 Post Operative Precautions Abdominal Surgery Precautions Log Roll,Lifting Restrictions, Gait Belt above Incisional Area M3 OT- IP Subjective and Pain Start: 02/01/21 14:06 Freq: Status: Active Protocol: Document 02/02/21 09:05 [facility] (Rec: 02/02/21 09:13 [facility] [id number]) OT- Subjective Occupational Therapy Visit Type Type Treatment Note Visit Start Time 08:53 Visit Stop Time 09:02 Total Visit Minutes 9 Occupational Therapy Visit Comments Patient Comments Pt sitting up in the recliner already and not wanting to sponge off at this time. Patient/Caregiver Goals To go home. OT Pain Assessment Pain When Pain Assessed At Rest Pain Present Pain Present Denied Pain M4 OT- IP ADL's Start: 02/01/21 14:06 Freq: Status: Active Protocol: Document 02/02/21 09:05 [facility] (Rec: 02/02/21 09:13 [facility] [id number]) OT [id number] Comments OT Self-Feeding Comments Pt just having clear liquids at this time. OT ADL-Dressing Comments OT Dressing Comments Able to show pt LB dressing equipment so able to follow abdominal precautions and do LB dressing needs with increased independence. Pt states that her is also able to assist with her needs at home. OT ADL-Toileting Comments OT Toileting Comments Pt states has been to the toilet several time with no issues. OT ADL-Bathing Comments OT Bathing Comments Pt states to get a shower chair. M5 OT- IP IADL's Start: 02/01/21 14:06 Freq: Status: Active Protocol: Document 02/01/21 14:06 [facility] (Rec: 02/01/21 14:19 [facility] [id number]) OT-Instrumental Activities of Daily Living Home Safety Awareness Awareness of Need for Assistance at Home Good Awareness Ability to Problem Solve Emergency Able to Problem Solve Situations M6 OT- IP Functional Cognition Start: 02/01/21 14:06 Freq: Status: Active Protocol: Document 02/02/21 09:05 [facility] (Rec: 02/02/21 09:13 [facility] [id number]) Cognitive Factors Limiting Selfcare Function Cognitive Comments Cognitive Assessment Comments Pt intact with no cognitive issues and independent to call for assist as needed. M8 OT- IP Objective Assessments Start: 02/01/21 14:06 Freq: Status: Active Protocol: Document 02/01/21 14:06 [facility] (Rec: 02/01/21 14:19 [facility] [id number]) OT-Muscle Tone Assessment Muscle Tone WNL Yes M9 OT- IP Assessment and Plan Start: 02/01/21 14:06 Freq: Status: Active Protocol: Document 02/02/21 09:05 [facility] (Rec: 02/02/21 09:13 [facility] [id number]) OT Summary Assessment and Plan Potential Rehabilitation Potential Good Analytic Complexity at Evaluation Moderate Summary Progress Towards Goals Progressing Toward Goals,Slow Progress due to Medical Issues Assessment Summary Pt doing well and both OT and pt feel that she has no further OT needs at this time. Pt has good understanding for OT equipment needs and has a supportive family at home to assist for all her needs. Therefore discharge pt for OT services and nursing to continue to provide supervision and assist for ADl needs as needed. Pt states main focus for her is trying to eat. Pt to continue to work with PT for mobility needs. Discharge Recommendations OT Discharge Recommendations Home with Assistance Home Equipment Needs FWW , shower chair
--- NOTE | 2021-02-02 11:59 | DIET.PN1 ---
Dietary Progress Note Assessment: 65y/o F c sigmoidectomy. Has questions about what foods to eat after discharge and whether she should discontinue fiber supplement. No BM as of yet. Per notes, plan to adv diet once bowel function returns. Tolerating clear liquids. Ht: 162.56 cm Wt: 68.039 kg BMI: 25.7 MNA: 14 Rehan Score: 21 Diet: 01/31/21 Dinner Clear Liquid Diet Diet Modifications: Nutrition Percent Meal Consumed 50% 02/02/21 09:00 Percent Meal Consumed 20 02/01/21 17:48 Percent Meal Consumed 0% 02/01/21 09:00 Percent Meal Consumed 25% 01/31/21 18:07 Labs: RBC 3.39 X10^6/uL (4.0-5.2) L 02/02/21 06:23 Hgb 11.3 g/dL (12.0-16.0) L 02/02/21 06:23 Hct 33.0 % (36-46) L 02/02/21 06:23 Creatinine 0.99 mg/dL (0.52-1.04) 02/02/21 06:23 Nutrition Diagnosis: Nutrition and food related knowledge deficit r/t new sigmoidectomy and needing nutrition therapy/education aeb pt report and chart notes Interventions: Low fiber MNT and slow increase in fiber after 2-4 weeks. Discussed holding fiber supplement until she sees provider. Reviewed foods recommended and not recommended and provided handout for support. She verbalized understanding. Monitoring/Evaluations: consult prn Electronically Signed by: Lizzy Mejia 02/02/21 11:59 Clinical Dietitian [address] [id number]
--- NOTE | 2021-02-02 14:00 | PC.NURSE ---
Post-op: Up in chair for several hours, amb in room. Has been voiding w/out problems. Feels bloated and gassy, is passing sm amts of flatus. Abd is a little distended. Binder off for the moment for comfort, she reports it is to constricting. Pain has been more controlled today.
--- NOTE | 2021-02-02 14:45 | PT.IPTN ---
Current Diagnoses Other intestinal obstruction unspecified as to partial versus complete obstruction (01/31/21) Surgery Performed Operation Date: 01/31/21 07:45 Actual Procedures s Placement of Ureteral Stent(Bilateral) - René Rocha MD p Laparoscopically Assisted Sigmoid Colectomy, Converted to Open Sigmoid Colectomy - Ben Hampton MD Physical Therapy Treatment Note M2 PT-IP Current Condition Start: 01/31/21 16:46 Freq: NEEDED Status: Active Protocol: Document 01/31/21 15:30 AB (Rec: 01/31/21 16:57 AB [id number]) Physical Therapy Current Condition Current Condition Evaluation Date 01/31/21 Treatment Diagnosis s/p colectoy; difficulty in walking Onset Date 01/31/21 M3 PT-IP Subjective Start: 01/31/21 16:46 Freq: NEEDED Status: Active Protocol: Document 02/02/21 14:45 AB (Rec: 02/02/21 15:51 AB [id number]) Subjective Physical Therapy Visit Type Type Treatment Note Visit Start Time 14:45 Visit Stop Time 15:15 Total Visit Minutes 30 Number of DIRECTOR OF RETAIL MERCHANDISING Visits 0 Physical Therapy Visit Comments Patient Comments agreeable to do PT Therapy Pain Assessment Pain When Pain Assessed At Rest Pain Present Pain Present Pain Reported Location Abdomen Intensity 5 Scale Used Numeric (0 - 10) Pain Management Techniques Modification of Treatment,Re- positioning,Timing of Activity with Medications M4 PT-IP Mobility and Gait Start: 01/31/21 16:46 Freq: NEEDED Status: Active Protocol: Document 02/02/21 14:45 AB (Rec: 02/02/21 15:51 AB [id number]) PT-Bed Mobility Assessment Rolling Type of Rolling Log Rolling Level of Assist Standby Assistance Supine to Sit Supine to Sit Standby Assistance,Bedrails Sit to Supine Sit to Supine Standby Assistance,Bedrails PT-Transfer Assessment Sit to and From Stand Sit to and from Stand Standby Assistance,Contact Guard Assistance,1 Person Assistance,Use of Upper Extremities Equipment Transfer Assistive Device Gait Belt,Front Wheeled Walker Orthotic/Prosthetic Devices or Brace: No Transfers Transfer Destination Toilet Transfer Technique ambulated Transfer Ability Level of Assist Standby Assistance,Contact Guard Assistance,1 Person Assistance,Use of Upper Extremities Comments Mobility Comments pt completed log roll supine to sit SBA with use of bed rail. completed sit to stand SBA to CGA and ambulated in the hallway ~ 250 ft using FWW SBA to CGA. presents with decrease otto, decrease LE elevation and sligtly increase in B knee flexion in standing with increase use of UE on FWW for support. pt requested to use the toilet and ambulated to the toilet. able to manage brief SBA. completed sit to stand using grab bar CGA and ambulated to the sink using fWW SBA. pt was able to maintain standing leaning against the counter SBA while completing handwashing and grooming needs . pt ambulated back to the bed using FWW SBA. completed sit to supine SBA with bed rail use. positioned in bed. call light and table placed within reach. Gait Assessment Gait Gait Assistance Required: Standby Assistance,Contact Guard Assist Distance (Feet) 250 Able to Maintain Weight Bearing Status Yes During Gait Assistive Devices Assistive Device Gait Belt,Front Wheeled Walker Orthotic/Prosthetic Devices or Brace: No Gait Deviations General Gait Pattern Decreased Stride Length, Decreased Feet Clearance Factors Limiting Gait Function Factors Limiting Gait Function Decreased Activity Tolerance, Decreased Strength,Limited Range of Motion,Pain,Poor Balance Comments Gait Comments pls refer to mobility section for details M5 PT-IP Objective Assessments Start: 01/31/21 16:46 Freq: NEEDED Status: Active Protocol: Document 01/31/21 15:30 AB (Rec: 01/31/21 16:57 AB [id number]) Orientation Orientation/Cognition Level of Alertness Alert Orientation Name,Age,Birthday,Month,Date, Year,Day of Week,Place, Situation Language Function Ability Hard of Hearing Safety Awareness Decreased Safety Awareness Memory Description No Deficits Noted Gross Range of Motion Lower Extremity ROM Assessment Within Functional Limits Strength Lower Extremity Strength Hip 4-/5 Knee 4-/5 Sensation Assessment Sensation Gross Sensation WNL Muscle Tone Muscle Tone WNL Yes M6 PT-IP Treatment Start: 01/31/21 16:46 Freq: NEEDED Status: Active Protocol: Document 02/02/21 14:45 AB (Rec: 02/02/21 15:51 AB [id number]) Physical Therapy Treatment Education Education Provided Precautions,Safety M7 PT-IP Assessment and Plan Start: 01/31/21 16:46 Freq: NEEDED Status: Active Protocol: Document 02/02/21 14:45 AB (Rec: 02/02/21 15:51 AB [id number]) PT Summary Assessment and Plan Potential Rehabilitation Potential Good Summary Impairments Pain,ROM,Strength,Balance, Coordination,Sensation,Tone, Cognition,Bed Mobility, Transfers,Gait,Activity Tolerance Progress Towards Goals Slow Progress due to Pain,Slow Progress due to Activity Tolerance Assessment Summary pt is progressing with mobility and was able to ambulate in the hallway today using FWW. pt will have her spouse to assist her at home. pt stated that her daugther will be borrowing a FWW for her. will continue to assess progress and completed caregiver training when appropriate. pt has 4 steps to enter the house without rails and needs to complete stair climbing training prior to d/c. Goals Bed Mobility Goal Independent Transfer Goal Independent,Front Wheeled Walker Gait Goal Independent,Front Wheel Walker Gait Distance 300 Other Goals improve ambulation without AD 200 ft SBA up/down 4 steps without rails SBA Days to Meet Goals 10 Frequency of Treatment Frequency Of Treatment Once a Day Treatment Plan Physical Therapy Treatment Plan Bed Mobility Training,Transfer Training,Gait Training, Therapeutic Exercise,Balance Retraining,Post Op Education, Discharge Planning,Hot or Cold Pack,Neuromuscular Re-ed, Coordination Retraining,Manual Therapy Precautions Abdominal Surgery Precautions Log Roll,Lifting Restrictions, Gait Belt above Incisional Area Recommendations To Nursing Amount of Assist Needed 1 Person Assist Discharge Recommendations PT Discharge Recommendations Home with Assistance,Home Health Transportation Needs at Discharge Private Vehicle,Wheelchair/ Cabulance
[2021-02-02] MEDS: MAG HYDROX/ALUM/SIMETH 30 ML UDC PO (18:04)
[2021-02-03] VITALS (11 sets, daily range): BP systolic 133–165; BP diastolic 71–92; PULSE 61–73; RESP 16–19; TEMP 35.8–36.6; O2SAT 93–98
--- NOTE | 2021-02-03 00:53 | PC.NURSE ---
Patient is alert and oriented. [place] bilaterally but hears best in left ear. Breath sounds CTA with RA sat of 93%. HRR. BP 140/72 and typically ranges 130-140's systolic. Denies nausea. BT present throughout but are tympanic sounding in upper quads. Is passing flatus and did have loose stool on previous shift. Abdomen is tender and states she still feels bloated with intermittent sharp pains. Denies dysuria, frequency or urgency with urination. Able to move self in bed. Up to bathroom with walker and SBA. Steristrips to abdomen intact with no drainage; some bruising noted around steristrips. Continues to decline use of SCD's so reminded to ankle wave when awake and patient verbalizes understanding. Fall risk score is moderate; patient calls for assistance appropriately so bed alarm is not activated at this time.
[2021-02-03] MEDS: PIPERACILLIN/TAZO 3.375 GM in SODIUM CHLORIDE 0.9% 100 ML 25 ML IV ×2 (00:57→09:07)
[2021-02-03] MEDS: SODIUM CHLORIDE 0.9% FLUSH 10 ML IV ×3 (00:59→23:26)
[2021-02-03] MEDS: ACETAMINOPHEN 325 MG TABLET 650 MG PO ×4 (05:40→23:47)
[2021-02-03 06:33] LABS: Add Manual Diff / Slide Review NO; Basophils Absolute Auto 0 /uL (0-100); Basophils Percent Auto 0.6 % (0-2); Eosinophils Absolute Auto 200 /uL (0-450); Eosinophils Percent Auto 2.3 % (2-4); Hematocrit 35.3 % (36-46); Hemoglobin 11.8 g/dL (12.0-16.0); Lymphocytes Absolute Auto 1900 /uL (1100-4500); Lymphocytes Percent Auto 22.6 % (25-40); Mean Corpuscular HGB Conc 33.5 % (30-36); Mean Corpuscular Hemoglobin 32.8 PG (26-34); Monocytes Absolute Auto 900 /uL (0-900); Monocytes Percent Auto 10.3 % (3-14); Neutrophils Absolute Auto 5300 /uL (1500-7000); Neutrophils Percent Auto 64.2 % (50-75); Platelet Count 262 X10^3/uL (150-400); Red Blood Cell Count 3.61 X10^6/uL (4.0-5.2); Red Cell Distribution Width 14.1 % (11.6-14.8); White Blood Cell Count 8.3 X10^3/uL (4.5-11.0)
[2021-02-03 07:03] LABS: BUN Creatinine Ratio 15.8 (6-22); Blood Urea Nitrogen 15 mg/dL (7-17); Calcium 8.7 mg/dL (8.4-10.2); Carbon Dioxide 25 mmol/L (22-32); Chloride 103 mmol/L (98-107); Glucose 76 mg/dL (80-110); HEMOLYSIS < 15 (0-50); Phosphorous 3.1 mg/dL (2.8-4.1); Potassium 3.9 mmol/L (3.4-5.1); Sodium 134 mmol/L (137-145)
[2021-02-03] MEDS: DOCUSATE 100 MG CAPSULE PO (09:01)
[2021-02-03] MEDS: ENOXAPARIN 40 MG/0.4 ML SYRINGE SUBCUT (09:01)
[2021-02-03] MEDS: lisinopriL 20 MG TABLET PO (09:02)
[2021-02-03] MEDS: FAMOTIDINE 20 MG TABLET PO (09:02)
[2021-02-03] MEDS: hydroCHLOROthiazide 25 MG TABLET PO (09:02)
--- NOTE | 2021-02-03 11:18 | PT.IPTN ---
Current Diagnoses Other intestinal obstruction unspecified as to partial versus complete obstruction (01/31/21) Surgery Performed Operation Date: 01/31/21 07:45 Actual Procedures s Placement of Ureteral Stent(Bilateral) - René Rocha MD p Laparoscopically Assisted Sigmoid Colectomy, Converted to Open Sigmoid Colectomy - Ben Hampton MD Physical Therapy Treatment Note M2 PT-IP Current Condition Start: 01/31/21 16:46 Freq: NEEDED Status: Active Protocol: Document 01/31/21 15:30 AB (Rec: 01/31/21 16:57 AB [id number]) Physical Therapy Current Condition Current Condition Evaluation Date 01/31/21 Treatment Diagnosis s/p colectoy; difficulty in walking Onset Date 01/31/21 M3 PT-IP Subjective Start: 01/31/21 16:46 Freq: NEEDED Status: Active Protocol: Document 02/03/21 11:18 AB (Rec: 02/03/21 12:30 AB [email or web address]) Subjective Physical Therapy Visit Type Type Treatment Note Visit Start Time 11:18 Visit Stop Time 11:48 Total Visit Minutes 30 Number of AUTO CLEANER Visits 0 Physical Therapy Visit Comments Patient Comments pt is agreeable to do PT Therapy Pain Assessment Pain When Pain Assessed At Rest Pain Present Pain Present Pain Reported Location Abdomen Scale Used pain scale not stated Pain Management Techniques Modification of Treatment,Re- positioning,Timing of Activity with Medications M4 PT-IP Mobility and Gait Start: 01/31/21 16:46 Freq: NEEDED Status: Active Protocol: Document 02/03/21 11:18 AB (Rec: 02/03/21 12:30 AB [email or web address]) PT-Bed Mobility Assessment Rolling Type of Rolling Log Rolling Level of Assist Standby Assistance Supine to Sit Supine to Sit Standby Assistance PT-Transfer Assessment Sit to and From Stand Sit to and from Stand Standby Assistance,1 Person Assistance,Use of Upper Extremities Equipment Transfer Assistive Device Gait Belt,Front Wheeled Walker Orthotic/Prosthetic Devices or Brace: No Transfers Transfer Destination Toilet Transfer Technique ambulated Transfer Ability Level of Assist Standby Assistance Comments Mobility Comments pt completed supine to sit log roll SBA. requested to go to the toilet. ambulated using fWW SBA. completed toileting and ambulated out of the toilet to the sink using fWW SBA. pt was able to maintain standing SBA while completing toileting. Pt walked ~ 20 ft in room and c/o dizziness. intructed to sit back down. BP checked: 165/92 and rechecked 151/88. pt rested and agreed to ambuale more and completed ~ 125 ft using FWW SBA to CGA due to pt's c/o lightheadedness and has to walk back to the room. agreed to stay up on chair. BP checked: 139/92. positioned pt on chair. Doctor came in to see pt. Left pt with the doctor. Gait Assessment Gait Gait Assistance Required: Standby Assistance,Contact Guard Assist Distance (Feet) 125 Able to Maintain Weight Bearing Status Yes During Gait Assistive Devices Assistive Device Gait Belt,Front Wheeled Walker Orthotic/Prosthetic Devices or Brace: No Gait Deviations General Gait Pattern Decreased Stride Length, Decreased Feet Clearance Factors Limiting Gait Function Factors Limiting Gait Function Decreased Activity Tolerance, Decreased Strength,Limited Range of Motion,Pain,Poor Balance Comments Gait Comments pls refer to mobility section for details M5 PT-IP Objective Assessments Start: 01/31/21 16:46 Freq: NEEDED Status: Active Protocol: Document 01/31/21 15:30 AB (Rec: 01/31/21 16:57 AB [email or web address]) Orientation Orientation/Cognition Level of Alertness Alert Orientation Name,Age,Birthday,Month,Date, Year,Day of Week,Place, Situation Language Function Ability Hard of Hearing Safety Awareness Decreased Safety Awareness Memory Description No Deficits Noted Gross Range of Motion Lower Extremity ROM Assessment Within Functional Limits Strength Lower Extremity Strength Hip 4-/5 Knee 4-/5 Sensation Assessment Sensation Gross Sensation WNL Muscle Tone Muscle Tone WNL Yes M6 PT-IP Treatment Start: 01/31/21 16:46 Freq: NEEDED Status: Active Protocol: Document 02/03/21 11:18 AB (Rec: 02/03/21 12:30 AB [id number]) Physical Therapy Treatment Education Education Provided Precautions,Safety M7 PT-IP Assessment and Plan Start: 01/31/21 16:46 Freq: NEEDED Status: Active Protocol: Document 02/03/21 11:18 AB (Rec: 02/03/21 12:30 AB [id number]) PT Summary Assessment and Plan Potential Rehabilitation Potential Good Summary Impairments Pain,ROM,Strength,Balance, Coordination,Sensation,Tone, Cognition,Bed Mobility, Transfers,Gait,Activity Tolerance Progress Towards Goals Slow Progress due to Pain,Slow Progress due to Activity Tolerance Assessment Summary pt requiring SBA to CGA with ambulation using FWW but unable to ambulate today compared to yesterday due to c /o dizziness/ lightheaded. will continue to assess progress. Pt has to complete stair climbing training prior to dc home. Goals Bed Mobility Goal Independent Transfer Goal Independent,Front Wheeled Walker Gait Goal Independent,Front Wheel Walker Gait Distance 300 Other Goals improve ambulation without AD 200 ft SBA up/down 4 steps without rails SBA Days to Meet Goals 10 Frequency of Treatment Frequency Of Treatment Once a Day Treatment Plan Physical Therapy Treatment Plan Bed Mobility Training,Transfer Training,Gait Training, Therapeutic Exercise,Balance Retraining,Post Op Education, Discharge Planning,Hot or Cold Pack,Neuromuscular Re-ed, Coordination Retraining,Manual Therapy Precautions Abdominal Surgery Precautions Log Roll,Lifting Restrictions, Gait Belt above Incisional Area Recommendations To Nursing Amount of Assist Needed 1 Person Assist Discharge Recommendations PT Discharge Recommendations Home with Assistance,Home Health Transportation Needs at Discharge Private Vehicle
--- NOTE | 2021-02-03 12:03 | PC.NURSE ---
Day shift note: Patient had BM this shift, small soft, with blood tinged. Dr. Gómez aware, diet advanced. IV Zosyn discontinued. Patient up OOB with meals and up with PT. Call light within reach. Calls appropriately for staff assist.
--- NOTE | 2021-02-03 12:49 | PM.PN.1 ---
Subjective Subjective Date Patient Seen: 02/03/21 Interval history: Denisha is doing well today. She has passed some blood clots per rectum. She has tolerated a clear diet without difficulty. She is passing gas. Exam Vital Signs (past 8 hours): - 02/03/21 08:00 02/03/21 08:10 02/03/21 08:31 Temperature 96.5 F L Pulse Rate 68 Respiratory Rate 16 Blood Pressure 137/74 Pulse Oximetry 95 96 97 02/03/21 09:02 02/03/21 12:00 Temperature Pulse Rate 68 Respiratory Rate Blood Pressure 137/74 Pulse Oximetry 95 Oxygen Delivery Method Room Air Oxygen Flow Rate 0 GI Other: Soft. The Steri-Strips are intact and there is no erythema around the incisions. Objective Labs Result Diagrams: 02/03/21 06:10 02/03/21 06:10 Labs: Laboratory Results - last 24 hr 02/03/21 02/03/21 06:10 06:10 WBC 8.3 RBC 3.61 L Hgb 11.8 L Hct 35.3 L MCV 98.0 MCH 32.8 MCHC 33.5 RDW 14.1 Plt Count 262 Neut % (Auto) 64.2 Lymph % (Auto) 22.6 L Sherman % (Auto) 10.3 Eos % (Auto) 2.3 Baso % (Auto) 0.6 Neut # (Auto) 5300 Lymph # (Auto) 1900 Sherman # (Auto) 900 Eos # (Auto) 200 Baso # (Auto) 0 Sodium 134 L Potassium 3.9 Chloride 103 Carbon Dioxide 25 BUN 15 Creatinine 0.95 Estimated GFR 59.0 L BUN/Creatinine Ratio 15.8 Glucose 76 L Calcium 8.7 Phosphorus 3.1 Magnesium 2.0 [facility] Medical History (Updated 02/03/21 @ 12:51 by Armando Gómez MD) Colon polyps (~2017) Eczema Hearing loss Hypertension Measles (~1961) Pneumonia Postop check Uterine infection (~1977) Vision disorder Surgical History Anesthesia History of biopsy (09/05/20) History of ectopic History of hysteroscopy (09/05/20) Hx of laparoscopy (09/16/20) Family History Father Cancer Mother History of heart disease Brother Diabetes mellitus History of heart disease Liver disease Grandfather History of heart attack Social History household members: spouse Smoking Status: Former smoker alcohol intake: current additional social history: QUIT DATE SMOKIN05/07/1998 Assessment & Plan Assessment and plan (1) Postop check: Status: Acute Plan: Will advance diet. She is encouraged to go slowly with regular diet. She will stop if she develops any nausea or fullness. Stop antibiotics. Time Spent With Patient Critical Care time: I spent a total of [] minutes of critical care time on this patient's care today; this time is exclusive of procedural time.
[2021-02-04] VITALS (7 sets, daily range): BP systolic 132–147; BP diastolic 74–93; PULSE 68–71; RESP 16–18; TEMP 36.1–36.6; O2SAT 95–98
[2021-02-04] MEDS: ACETAMINOPHEN 325 MG TABLET 650 MG PO ×2 (06:27→11:40)
[2021-02-04] MEDS: ENOXAPARIN 40 MG/0.4 ML SYRINGE SUBCUT (09:34)
[2021-02-04] MEDS: hydroCHLOROthiazide 25 MG TABLET PO (09:34)
[2021-02-04] MEDS: DOCUSATE 100 MG CAPSULE PO (09:34)
[2021-02-04] MEDS: SODIUM CHLORIDE 0.9% FLUSH 10 ML IV (09:35)
[2021-02-04] MEDS: lisinopriL 20 MG TABLET PO (09:35)
[2021-02-04] MEDS: FAMOTIDINE 20 MG TABLET PO (09:36)
--- NOTE | 2021-02-04 10:27 | PT-IP ANOTE ---
spoke with patient this am, she notes she is waiting for her to arrive to take her home this AM. She showered by her self this am and is dressed sitting in her bedside chair. Her daughter is getting her a walker for home, she has 4 steps into her home but once in it is all one level. Her plans on helping her into her home. She will be discharged from PT at this time
--- NOTE | 2021-02-04 11:30 | P.DS_ITS ---
History of Present Illness History of Present Illness Date Patient Seen: 02/04/21 Time Patient Seen: 11:31 Chief complaint: INPT Narrative: The patient had a sigmoid colon resection by Dr. Hampton on 01/31 for a diverticular stricture. She did well postop and tolerated a diet. She had some bowel function with minimal pain requirement. She was discharged on postop day 4. Discharge Providers Provider Date of admission: 01/31/21 06:05 Discharge Date: 02/04/21 Primary care physician: Isabela Walker PA-C Consults: 01/31/21 12:23 Consult to Discharge Planning Routine Comment: 01/31/21 12:24 Consult to Occupational Therapy Evaluate & Treat Comment: Physician Instructions: Evaluate and treat Consult to Physical Therapy Evaluate & Treat Comment: Physician Instructions: Evaluate and Treat Discharge provider: Armando Gómez MD Exam Vital Signs (past 8 hours): - 02/04/21 04:00 02/04/21 08:00 02/04/21 08:10 Temperature 97.8 F 96.9 F L Pulse Rate 71 68 Respiratory Rate 18 16 Blood Pressure 141/74 H 147/93 H Pulse Oximetry 96 98 97 02/04/21 09:26 02/04/21 09:27 Temperature Pulse Rate Respiratory Rate Blood Pressure Pulse Oximetry 96 96 Oxygen Delivery Method Room Air Oxygen Flow Rate 0 Narrative Exam Narrative: Abdomen is soft. Incision clean dry and intact. Objective Labs Result Diagrams: 02/03/21 06:10 02/03/21 06:10 [facility] Medical History (Updated 02/03/21 @ 12:51 by Armando Gómez MD) Colon polyps (~2017) Eczema Hearing loss Hypertension Measles (~1961) Pneumonia Postop check Uterine infection (~1977) Vision disorder Surgical History Anesthesia History of biopsy (09/05/20) History of ectopic History of hysteroscopy (09/05/20) Hx of laparoscopy (09/16/20) Family History Father Cancer Mother History of heart disease Brother Diabetes mellitus History of heart disease Liver disease Grandfather History of heart attack Social History household members: spouse Smoking Status: Former smoker alcohol intake: current additional social history: QUIT DATE SMOKIN05/07/1998 Discharge Plan Discharge orders & Medications Discharge Orders: Discharge (Order); Ordered 02/04/21 Ordered By: Armando Gómez Prescriptions: No Action metronidazole 500 mg tablet 1,000 mg PO TID Qty: 6 RF: 0 hydrocodone-acetaminophen 5-325 mg tablet 1 tab PO Q4-6H PRN (Reason: pain) Qty: 10 RF: 0 famotidine 20 mg tablet 20 mg PO DAILY Qty: 30 RF: 1 naproxen sodium [Aleve] 220 mg Capsule 220 mg PO BID PRN (Reason: Pain (Scale Score 4-6)) RF: 0 aspirin [Adult Low Dose Aspirin] 81 mg tablet,delayed release (DR/EC) 81 mg PO DAILY RF: 0 lisinopril-hydrochlorothiazide 20-25 mg tablet 1 tab PO DAILY RF: 0 Follow up/Referrals: Isabela Walker PA-C [Primary Care Provider] - Diet/Activity/Treatments Diet: Regular Skin/Wound/Dressing Care Report to your healthcare provider any signs of infection, such as:: chills, fever, night sweats, increased pain, unusual drainage and unusual redness Visit Report/Discharge Packet Instructions: DI for Colectomy, DI for Laparoscopy, How to Prevent Falls, [facility]: Wound Care Stand Alone Forms: Surgery Discharge Discharge Data Primary Care Provider: Isabela Walker
--- NOTE | 2021-02-04 12:31 | PC.NURSE ---
Day shift: Per Dr Gómez Pt's script for [place] is being filled at [facility] here in [place] and it will be ready for her to pick-up before the [place] keisha.
--- NOTE | 2021-02-04 13:31 | PC.NURSE ---
Day shift: Paperwork signed and all questions answered. Pt has all personal belongings. Spouse in room for teachings. gave verbal instructions to Pt when he did rounds. [place] script at [facility] for Pt and lined that up. [place] to car in by this contract writer. Pt tolerated that well. They have the boarding pass for return to [facility] today. Left unit at approx 1330.
== END 2021-02-04 13:34 | disposition home or self-care (01) | DRG 330 ==
PROVIDERS: Admitting Provider Surgery; PCP Physician Assistant; Referring Provider Urology; Visit Provider Urology
PROC: 0T788DZ Dilation of Bilateral Ureters with Intraluminal Device, Via Natural or Artificial Opening Endoscopic (ICD-10-PCS; principal; 2021-01-31 07:45)
PROC: 0DTE0ZZ Resection of Large Intestine, Open Approach (ICD-10-PCS; 2021-01-31 07:45)
DX: K56.699 Other intestinal obstruction unspecified as to partial versus complete obstruction (principal); K57.20 Diverticulitis of large intestine with perforation and abscess without bleeding; N99.4 Postprocedural pelvic peritoneal adhesions; I10 Essential (primary) hypertension; Z20.822 Contact with and (suspected) exposure to COVID-19; Z87.891 Personal history of nicotine dependence
CPT/HCPCS: 36415; 44204; 52005; 74018; 76000; 80048; 82962; 83735; 84100; 85025; 87635; 94760; 97116; 97162; 97166; 97530; 97535; C9803; A9270; J0131; J1100; J1170; J1650; J1885; J2250; J2270; J2405; J2543; J2704; J3010

== ENCOUNTER → 2021-08-24 11:11 | Outpatient (CLI) | payer MEDICARE, OTHER, SELFPAY ==
[2021-08-10 11:41] VITALS: BMI 25.7
[2021-08-24 20:15] LABS: Add Manual Diff / Slide Review NO; Basophils Absolute Auto 100 /uL (0-100); Basophils Percent Auto 1.3 % (0-2); Eosinophils Absolute Auto 100 /uL (0-450); Eosinophils Percent Auto 1.4 % (2-4); Hematocrit 39.3 % (36-46); Hemoglobin 13.2 g/dL (12.0-16.0); Lymphocytes Absolute Auto 2400 /uL (1100-4500); Lymphocytes Percent Auto 34.3 % (25-40); Mean Corpuscular HGB Conc 33.7 % (30-36); Mean Corpuscular Hemoglobin 32.6 PG (26-34); Mean Corpuscular Volume 96.8 fL (80-100); Monocytes Absolute Auto 600 /uL (0-900); Neutrophils Absolute Auto 3800 /uL (1500-7000); Platelet Count 291 X10^3/uL (150-400); Red Blood Cell Count 4.06 X10^6/uL (4.0-5.2)
[2021-08-24 20:24] LABS: HEMOLYSIS < 15 (0-50); Iron 133 ug/dL (37-170)
[2021-08-24 20:36] LABS: Percent Iron Saturation 46 % (15-50); Total Iron Binding Capacity 291 ug/dL (265-497); Transferrin 234 mg/dL (206-381)
[2021-08-24 23:21] LABS: BUN Creatinine Ratio 24.4 (6-22); Blood Urea Nitrogen 21 mg/dL (7-17); Calcium 10.4 mg/dL (8.4-10.2); Carbon Dioxide 31 mmol/L (22-32); Chloride 103 mmol/L (98-107); Cholesterol 244 mg/dL (140-199); Estimated Glomerular Filt Rate > 60 mL/min (>60); Glucose 99 mg/dL (80-110); HDL Cholesterol 66 mg/dL (40-60); HEMOLYSIS < 15 (0-50); LDL Cholesterol Calculated 122 mg/dL (<100); Sodium 139 mmol/L (137-145); Triglycerides 280 mg/dL (35-150)
[2021-08-25 00:09] LABS: Vitamin B12 203 pg/mL (239-931)
== END ==
PROVIDERS: PCP Physician Assistant; Visit Provider Family Medicine
DX: I10 Essential (primary) hypertension (principal); N94.89 Other specified conditions associated with female genital organs and menstrual cycle; D64.9 Anemia, unspecified; E87.1 Hypo-osmolality and hyponatremia; F43.21 Adjustment disorder with depressed mood; K21.9 Gastro-esophageal reflux disease without esophagitis; Z90.49 Acquired absence of other specified parts of digestive tract; M79.604 Pain in right leg; M79.605 Pain in left leg; Z13.220 Encounter for screening for lipoid disorders
CPT/HCPCS: 80048; 80061; 82607; 83540; 83550; 85025

== ENCOUNTER → 2021-10-16 11:08 | Outpatient (CLI) | payer MEDICARE, OTHER, SELFPAY ==
[2021-08-10 11:41] VITALS: BMI 25.7
[2021-10-16 13:05] LABS: BUN Creatinine Ratio 20.7 (6-22); Blood Urea Nitrogen 18 mg/dL (7-17); Calcium 9.2 mg/dL (8.4-10.2); Carbon Dioxide 32 mmol/L (22-32); Chloride 99 mmol/L (98-107); Estimated Glomerular Filt Rate > 60 mL/min (>60); Glucose 97 mg/dL (80-110); HEMOLYSIS < 15 (0-50); Potassium 3.8 mmol/L (3.4-5.1); Sodium 139 mmol/L (137-145)
--- NOTE | 2021-10-16 13:20 | DI.CT.S_ITS ---
PROCEDURE: CT ABDOMEN PELVIS W CON INDICATIONS: Investigate abdominal mass TECHNIQUE: After the administration of oral and intravenous contrast, axial sections were acquired from the lung bases to the pubic symphysis. Coronal and sagittal reformats were performed. For radiation dose reduction, the following was used: automated exposure control, adjustment of mA and/or kV according to patient size. COMPARISON:[facility], CT, CT ABDOMEN PELVIS W CON, 09/12/2020, 16:42. FINDINGS: Image quality: Adequate. Lung bases: No pleural effusion. ABDOMEN: Liver: Unremarkable. Gallbladder: Unremarkable. Biliary ducts: Unremarkable. Pancreas: Unremarkable. Spleen: Unremarkable. Adrenal Glands: Unremarkable. Kidneys and Ureters: Unremarkable. Stomach and Bowel: Postsurgical changes of the sigmoid colon with a colonic anastomosis present. No dilated large or small bowel to suggest mechanical bowel obstruction. Gas and fluid collection abutting the sigmoid colon present on the previous CT is no longer visualized. Mild diverticulosis of the remaining colon present without findings to suggest acute diverticulitis. Peritoneum: No abnormal intraperitoneal fluid. No free air. Ventral Wall: Two periumbilical hernias are now present. The larger contains fat and the anti mesenteric border of the transverse colon (Chambers hernia). The neck of this hernia measures approximately 4.1 cm in the axial plane and 2.8 cm in the sagittal plane. The smaller hernia is located inferiorly and contains fat without bowel, neck measuring 5 mm in the sagittal plane. Abdominal Nodes: No retroperitoneal or mesenteric adenopathy by size criteria. Vessels: Aorta and inferior vena cava are normal in size. PELVIS: Pelvic Organs: Unremarkable. Bladder: Unremarkable. Pelvic Nodes: No enlarged lymph nodes. Bones: Multilevel degenerative change of the visualized spine. IMPRESSION: Development of two periumbilical hernias, the largest containing fat and a small portion of the transverse colon. No evidence of mechanical bowel obstruction at this time. Dictated by: Marshall Reilly M.D. on 10/16/2021 at 16:22 Approved by: Marshall Reilly M.D. on 10/16/2021 at 16:37
[2021-10-17 07:39] LABS: Calcium 9.4 mg/dL (8.7-10.3); Parathyroid Hormone, Intact 26 pg/mL (15-65)
[2021-10-17 15:36] LABS: Albumin 3.8 g/dL (2.9-4.4); Alpha-1-Globulin 0.2 g/dL (0.0-0.4); Alpha-2-Globulin 0.9 g/dL (0.4-1.0); Gamma Globulin 1.1 g/dL (0.4-1.8); Globulin Total 3.1 g/dL (2.2-3.9); Protein, Total 6.9 g/dL (6.0-8.5)
== END ==
PROVIDERS: PCP Physician Assistant; Referring Provider Family Medicine; Visit Provider Family Medicine
DX: K42.9 Umbilical hernia without obstruction or gangrene (principal); R19.00 Intra-abdominal and pelvic swelling, mass and lump, unspecified site; N94.89 Other specified conditions associated with female genital organs and menstrual cycle; E83.52 Hypercalcemia; Z87.19 Personal history of other diseases of the digestive system; Z01.812 Encounter for preprocedural laboratory examination; Z90.49 Acquired absence of other specified parts of digestive tract
CPT/HCPCS: 36415; 74177; 80048; 82310; 83970; 84155; 84165

== ENCOUNTER → 2021-12-31 07:12 | Outpatient (CLI) | payer MEDICARE, OTHER, SELFPAY ==
[2021-10-23 09:52] VITALS: BMI 25.7
[2021-12-31 21:01] LABS: COVID19 - ORCAS (NP or Nasal) Negative (Negative)
== END ==
PROVIDERS: PCP Physician Assistant; Visit Provider Physician Assistant
DX: Z20.822 Contact with and (suspected) exposure to COVID-19 (principal)
CPT/HCPCS: C9803; U0003

== ENCOUNTER 2022-01-02 08:56 | Day surgery (SDC) | payer MEDICARE, OTHER, SELFPAY ==
[2021-10-23 09:52] VITALS: BMI 25.7
[2021-12-27 12:26] VITALS: BMI 27.8
[2022-01-02] VITALS (11 sets, daily range): BP systolic 121–144; BP diastolic 58–84; PULSE 66–72; RESP 11–18; TEMP 36.3–36.7; O2SAT 94–100; BMI 27.8
[2022-01-02] MEDS: LACTATED RINGERS 1,000 ML 100 ML IV ×2 (10:32→12:58)
--- NOTE | 2022-01-02 10:58 | PM.OP.1 ---
Operative Date/Time/Diagnoses Date of procedure: 01/02/22 Time of procedure: 13:08 Pre-op diagnosis: Incisional ventral hernia Post-op diagnosis: same Procedure & Clinicians Procedure: Open repair of incisional ventral hernia mesh Lysis of adhesions Same procedure as scheduled: Yes Indications: Symptomatic reducible incisional ventral Surgeon: Ben Hampton Click Yes if Unassisted: Yes Anesthesia Type: General Operative Notes Findings: Approximately 6-8 cm fascial defect in maximal dimension containing bowel Specimen(s): none sent Prosthetic devices, grafts, tissues, transplants, or devices: Flat macro porous mesh 15 x 6 cm Estimated Blood Loss (mL): 50 Procedure in detail: Patient was brought to the operating room placed supine on the table. Bilateral lower extremity compression devices were applied. They received 2 g of Ancef prior to skin incision. Prepped and draped in sterile fashion, ioban was placed. Time-out was performed. A midline incision was made inferior to the umbilicus with a knife. The previous midline scar was excised. The subcutaneous tissue was divided to expose the midline fascia. The fascia had a defect of approximately 8 cm. The fascia was grasped elevated and sharply opened. Complete lysis of all visceral adhesions was performed with sharp dissection. A towel was then placed over the visceral content to protect it out of harms way. The retromuscular space was entered by incising the posterior rectus sheath approximately 1 cm from its edge. The retromuscular plane was developed using electrocautery with care to protect the neurovascular structures. The retrorectus space was developed in the same fashion on the contralateral side. The spaces were then connected superiorly near the umbilicus. The posterior sheath was then closed in running fashion with Vicryl. I selected a Bard 15x 6cm polypropelene soft tissue mesh placed in the retro rectus space. The mesh was anchored with interrupted Ethibond in transfascial fashion in four quadrants using the mindi de jesus device such that the mesh lay under physiologic tension. A 19 [place] flat drain was placed anterior to the mesh and brought out through the skin. The anterior sheath/ linea alba was then closed in interrupted fashion with Ethibond without tension. Hemostasis was checked. The subcutaneous tissue was then reapproximated using Vicryl skin closed with running 4-0 Monocryl followed by the application of Dermabond. Patient emerged from anesthesia was extubated and transferred to recovery room in stable condition. Complications: none Post-operative Condition: stable Disposition: same day surgery
--- NOTE | 2022-01-02 10:58 | PM.HP.1 ---
History of Present Illness History of Present Illness Date Patient Seen: 01/02/22 Time Patient Seen: 10:58 Chief complaint: Open Ventral Hernia Repair w/ Mesh Narrative: 66-year-old woman with a incisional ventral hernia here for elective open repair. No interval changes in health. Please refer to the H& P from November 2021 for further detail Patient History Medical History (Updated 01/02/22 @ 10:02 by Mode Alcantara RN) Colon polyps (~2017) Diverticular stricture Diverticulitis of intestine with abscess Eczema Hearing loss Measles (~1961) Pneumonia Uterine infection (~1977) Ventral hernia Vision disorder Surgical History (Updated 12/27/21 @ 12:34 by Anna Neumann RN) Anesthesia History of biopsy (09/05/20) History of ectopic History of hysteroscopy (09/05/20) Hx of colectomy (2020) Hx of laparoscopy (09/16/20) Family & Social History Family History Father Cancer Mother History of heart disease Brother Diabetes mellitus History of heart disease Liver disease Grandfather History of heart attack Social History: household members spouse Tobacco & Substance use: Tobacco type cigarettes Smoking Status Former smoker alcohol intake current alcohol intake frequency a few times a week Substance Use Type does not use Meds Home Medications and Allergies Home Medications Medication Instructions Recorded Confirmed Type famotidine 20 mg tablet 20 mg PO DAILY heartburn #30 tabs 10/25/20 01/02/22 Rx lisinopril 20 1 tab PO DAILY #90 tabs 08/15/21 01/02/22 Rx mg-hydrochlorothiazide 25 mg tablet Allergies Allergy/AdvReac Type Severity Reaction Status Date / Time No Known Drug Allergies Allergy Verified 01/02/22 10:02 Exam Vital Signs (past 8 hours): - 01/02/22 10:04 Temperature 98.1 F Pulse Rate 72 Respiratory Rate 16 Blood Pressure 144/73 H Pulse Oximetry 100 Oxygen Delivery Method Room Air Oxygen Delivery Method Room Air Narrative Exam Narrative: General adult woman alert oriented no acute distress Abdomen soft nontender nondistended. Reducible ventral hernia lower midline. Assessment & Plan Assessment and plan (1) Incisional hernia: Qualifiers: Obstruction and gangrene presence: without obstruction or gangrene Qualified Code(s): K43.2 - Incisional hernia without obstruction or gangrene Status: Acute Assessment & Plan narrative: 66-year-old woman with a symptomatic incisional ventral hernia here for open ventral hernia repair with mesh. Overview of the operation was again discussed with the patient at the bedside. Operative risks including bleeding, infection, recurrence, damage to surrounding structures, anesthetic complication and were discussed. Her questions have been answered and she is in agreement with this plan. Time Spent With Patient Critical Care time: I spent a total of [] minutes of critical care time on this patient's care today; this time is exclusive of procedural time.
[2022-01-02] MEDS: CEFAZOLIN 2 GM/100 ML PREMIX 100 ML IV (11:15)
[2022-01-02] MEDS: ACETAMINOPHEN IV 1,000 MG/100 ML VIAL 400 MG IV (11:25)
[2022-01-02] MEDS: BUPIVACAINE 0.25% (PF) VIAL 30 ML INJ (11:38)
--- NOTE | 2022-01-02 11:59 | SUR.OPER ---
Supine on padded OR bed, head on pillow, arms secured on padded arm boards at <90 degrees abduction, legs uncrossed, safety belt at thigh, tape over blanket over lower legs. Gel pad under bilateral heels.
[2022-01-02] MEDS: fentaNYL 100 MCG/2 ML INJ IV ×4 (13:30→13:54)
[2022-01-02] MEDS: ONDANSETRON 4 MG/2 ML INJ IV (13:58)
[2022-01-02] MEDS: OXYCODONE IR 5 MG TABLET PO (14:00)
== END 2022-01-02 15:40 | disposition home or self-care (01) ==
PROVIDERS: PCP Family Medicine; Referring Provider Surgery; Visit Provider Surgery
PROC: (CPT 49560; principal; 2022-01-02 11:15)
DX: K43.2 Incisional hernia without obstruction or gangrene (principal); I10 Essential (primary) hypertension
CPT/HCPCS: 49560; 49568; 00830; 82962; J0131; J0690; J1100; J1170; J1885; J2405; J2704; J3010

== ENCOUNTER → 2022-08-07 14:40 | Outpatient (CLI) | payer MEDICARE, OTHER, SELFPAY ==
[2021-10-23 09:52] VITALS: BMI 25.7
[2022-08-10 15:08] LABS: H. Pylori Antigen Stool Negative (Negative)
== END ==
PROVIDERS: PCP Family Medicine; Visit Provider Family Medicine
DX: R10.13 Epigastric pain (principal); K21.9 Gastro-esophageal reflux disease without esophagitis
CPT/HCPCS: 87338

== ENCOUNTER → 2022-08-15 11:06 | Outpatient (CLI) | payer MEDICARE, OTHER, SELFPAY ==
[2021-10-23 09:52] VITALS: BMI 25.7
--- NOTE | 2022-08-15 11:07 | DI.US.S_ITS ---
PROCEDURE: US ABDOMEN LIMITED INDICATIONS: HERNIA OF UPPER ABD WALL - NEW TECHNIQUE: Real-time focused scanning was performed of the abdomen, with image documentation. COMPARISON: CT 10/16/2021. FINDINGS: There are 2 fat containing supraumbilical hernias. The largest neck measures 1.5 centimeters and the smallest neck measures 0.7 centimeters. These are similar in size compared with CT dated 10/16/2021. IMPRESSION: Stable supraumbilical hernias, as above. These contain fat, and are non reducible. Dictated by: Pelon Sage M.D. on 08/15/2022 at 12:14 Approved by: Pelon Sage M.D. on 08/15/2022 at 12:16
== END ==
PROVIDERS: PCP Family Medicine; Referring Provider Family Medicine; Visit Provider Family Medicine
DX: K42.0 Umbilical hernia with obstruction, without gangrene (principal); K43.9 Ventral hernia without obstruction or gangrene
CPT/HCPCS: 76705; 99213

== ENCOUNTER 2023-01-01 09:11 | Day surgery (SDC) | payer MEDICARE, OTHER, SELFPAY ==
[2021-10-23 09:52] VITALS: BMI 25.7
[2022-12-11 09:49] VITALS: BMI 26.6
[2023-01-01] VITALS (15 sets, daily range): BP systolic 100–133; BP diastolic 47–80; PULSE 51–91; RESP 12–18; TEMP 35.6–36.5; O2SAT 93–99; BMI 26.6
[2023-01-01] MEDS: LACTATED RINGERS 1,000 ML 100 ML IV ×2 (10:06→12:00)
--- NOTE | 2023-01-01 11:13 | PM.PREOP ---
Pre-operative Note Interval Note History & Physical reviewed/Exam performed by Physician: Yes Changes to H&P: No
[2023-01-01] MEDS: CEFAZOLIN 2 GM/100 ML PREMIX 100 ML IV (12:00)
--- NOTE | 2023-01-01 12:22 | SUR.OPER ---
Supine on padded OR bed, head on pillow, arms secured on padded arm boards at <90 degrees abduction, legs uncrossed, safety belt at thigh, tape over blanket over lower legs.
[2023-01-01] MEDS: BUPIVACAINE LIPOSOME 266 MG/20 ML VIAL INJ (12:30)
[2023-01-01] MEDS: BUPIVACAINE 0.25% (PF) VIAL 30 ML INJ (12:31)
--- NOTE | 2023-01-01 13:38 | P.OP_ITS ---
Operative Date/Time/Diagnoses Date of procedure: 01/01/23 Time of procedure: 17:09 Pre-op diagnosis: Ventral hernia 8cm Post-op diagnosis: same Procedure & Clinicians Procedure: Open repair 8 cm ventral hernia Same procedure as scheduled: Yes Indications: 67 year old with a symptomatic partially reducible supraumbilical ventral hernia here for elective repair Surgeon: Ben Hampton Electronic Lab Technician: Ramakrishna Hazel Anesthesia Type: General Operative Notes Findings: Supraumbilical 8 cm fascial defect in the midline Specimen(s): none sent Estimated Blood Loss (mL): 20 Procedure in detail: Patient was brought to the operating room placed supine on the table. Bilateral lower extremity compression devices were applied. She received 2 g of Ancef prior to skin incision. General anesthesia was induced and she was intubated with an endotracheal tube. She was then prepped and draped in sterile fashion time-out was performed. We began with a upper midline supraumbilical incision. The subcutaneous tissue was divided and this exposed the midline hernia. The hernia sac was opened in the abdomen was entered atraumatically. There was a loop of transverse colon within the hernia sac which was carefully dissected free and a sharp lysis of adhesions was performed in order to entirely expose the hernia defect. Defect measured approximally 8 cm in maximal diameter. The hernia sac was resected. We then examined the rectus and her previous ventral hernia repair had been up to the level of the umbilicus and performed in a retro rectus fashion. The plane between the posterior sheath and the rectus muscle was entered but it was quite difficult to adequately develop this plane the tissue here was fairly well fused together given her prior ventral hernia repair. As a as an alternative we placed a 12 cm Ventralex hernia mesh into the abdomen with the anti-adhesive surface down. Using a Aleksander Hernandez trans fascial sutures were placed in interrupted fashion around the defect in order to anchor the mesh in place. Mesh lay under physiologic tension in the defect was entirely covered with good overlap in all directions. The midline fascia was then reapproximated over the mesh. The subcutaneous tissue was closed with Vicryl and skin closed with a running Monocryl. Tolerated the operation well was transferred to recovery in stable condition. Complications: none Post-operative Condition: stable Disposition: observation
--- NOTE | 2023-01-01 13:48 | SUR.PHASEI ---
Deedee Ibarra WASH CREW PERSON notified of 2nd degree heart block type II which had also happened in the OR.
[2023-01-01] MEDS: fentaNYL 100 MCG/2 ML INJ IV ×4 (13:54→14:13)
--- NOTE | 2023-01-01 14:29 | SUR.PHASEI ---
Deedee Ibarra GLOBAL MARKETING INTERN notified patient in NSR. Asked if she should go up to her room on telemetry, and Deedee Ibarra ordered no telemetry.
--- NOTE | 2023-01-01 14:54 | SUR.PHASEI ---
Pt transferred to room 225 in bed with backpack and 1 belongings bag. Pt checked in by Brittni GARRETT. Pt o2 sat 97% on RA. Alert, oriented. Incision well approximated. Abdominal binder on.
[2023-01-01] MEDS: CELECOXIB 200 MG CAPSULE PO ×2 (14:58→21:29)
[2023-01-01] MEDS: ACETAMINOPHEN 325 MG TABLET 650 MG PO ×2 (14:58→19:49)
[2023-01-01] MEDS: OXYCODONE IR 5 MG TABLET PO ×2 (17:38→21:55)
[2023-01-01] MEDS: HYDROMORPHONE 0.5 MG INJ IV (18:32)
[2023-01-02] VITALS: BP 98/64; PULSE 67; RESP 17; TEMP 36.4; O2SAT 95
[2023-01-02] MEDS: ACETAMINOPHEN 325 MG TABLET 650 MG PO ×2 (01:22→07:04)
[2023-01-02 04:00] VITALS: BP 98/58; PULSE 68; RESP 16; TEMP 35.9; O2SAT 97
[2023-01-02 07:43] VITALS: BP 101/60; PULSE 59; RESP 18; TEMP 37.1; O2SAT 95
[2023-01-02 09:50] VITALS: O2SAT 95
[2023-01-02] MEDS: SODIUM CHLORIDE 0.9% FLUSH 10 ML IV (09:50)
[2023-01-02] MEDS: CELECOXIB 200 MG CAPSULE PO (09:50)
[2023-01-02] MEDS: FAMOTIDINE 20 MG TABLET PO (09:50)
[2023-01-02 10:59] VITALS: BP 119/74
--- NOTE | 2023-01-02 12:12 | CM.DANOTE ---
Initial DCP Assessment Note Pt is a 67 yo female, resident of [facility], now POD#1 from elective Open repair 8 cm ventral hernia PCP: Ross Bell Payer: [employer] Reviewed chart, pt discussed in multidisciplinary rounds this morning. Patient has planned for home, DC order has already been initiated this morning. Met w/patient to introduce self and role. Patient requests a priority boarding pass to get back to [facility], spouse to transport. 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 Electronic form for the ferry Priority board pass via [employer] completed and submitted. Copy of the confirmation printed and provided to patient. No barriers identified at this time to patient's safe discharge home w/family to assist; close outpatient f/u recommended. CM team will plan to follow closely in case any DC needs or concerns arise. HANNAH Avalos Discharge Planning/Care Management CM Discharge Assessment Start: 01/02/23 12:08 Freq: Status: Active Protocol: Document 01/02/23 12:08 JULIO CESAR (Rec: 01/02/23 12:12 JULIO CESAR [id number]) Discharge Planning Assessment Assigned Backing In Machine Tender HANNAH Bloom DPOA/Assigned Designee Name Christiano Flores, spouse Contact Information [phone] Advance Directives? No History Provided By Patient,Significant Other, Medical Record Prior Living Arrangements House Household Members spouse Type of transporation used prior to Drives own vehicle admit Independent with ADL's Yes Is patient alert and oriented? Yes Barriers to Discharge No Discharge Plan Home Transportation Arrangement Spouse Referrals Initiated None needed,Other Additional Comment Priority board completed for ferry to [facility]
== END 2023-01-02 12:55 | disposition home or self-care (01) ==
LOC: OR 09:12 → AC 09:13
PROVIDERS: PCP Family Medicine; Referring Provider Surgery; Visit Provider Surgery
PROC: (CPT 49594; principal; 2023-01-01 11:00)
DX: K43.6 Other and unspecified ventral hernia with obstruction, without gangrene (principal)
CPT/HCPCS: 49594; 82962; 93005; A9270; C9290; J0690; J1100; J1170; J1885; J2250; J2405; J2704; J3010

== ENCOUNTER → 2023-02-05 09:54 | Outpatient (CLI) | payer MEDICARE, OTHER, SELFPAY ==
[2023-01-01 15:15] VITALS: BMI 26.6
[2023-02-05 19:12] LABS: Add Manual Diff / Slide Review NO; Basophils Absolute Auto 100 /uL (0-100); Basophils Percent Auto 0.9 % (0-2); Eosinophils Absolute Auto 300 /uL (0-450); Eosinophils Percent Auto 5.4 % (2-4); Hematocrit 37.5 % (36-46); Hemoglobin 12.7 g/dL (12.0-16.0); Lymphocytes Absolute Auto 2400 /uL (1100-4500); Lymphocytes Percent Auto 41.4 % (25-40); Mean Corpuscular HGB Conc 33.9 % (30-36); Mean Corpuscular Hemoglobin 31.1 PG (26-34); Mean Corpuscular Volume 91.7 fL (80-100); Monocytes Absolute Auto 500 /uL (0-900); Monocytes Percent Auto 7.8 % (3-14); Neutrophils Absolute Auto 2600 /uL (1500-7000); Neutrophils Percent Auto 44.5 % (50-75); Platelet Count 286 X10^3/uL (150-400); Red Blood Cell Count 4.09 X10^6/uL (4.0-5.2); Red Cell Distribution Width 13.1 % (11.6-14.8); White Blood Cell Count 5.9 X10^3/uL (4.5-11.0)
[2023-02-05 19:41] LABS: Alanine Aminotransferase 17 IU/L (<35); Albumin 4.1 g/dL (3.5-5.0); Albumin Globulin Ratio 1.5 (1.0-2.8); Alkaline Phosphatase 70 U/L (38-126); Aspartate Aminotransferase 21 IU/L (14-36); BUN Creatinine Ratio 31.8 (6-22); Bilirubin Total 0.5 mg/dL (0.2-1.3); Blood Urea Nitrogen 27 mg/dL (7-17); Calcium 10.2 mg/dL (8.4-10.2); Carbon Dioxide 28 mmol/L (22-32); Chloride 103 mmol/L (98-107); Cholesterol 262 mg/dL (140-199); Estimated Glomerular Filt Rate > 60 mL/min (>60); Globulin 2.8 g/dL (1.7-4.1); Glucose 85 mg/dL (80-110); HDL Cholesterol 62 mg/dL (40-60); HEMOLYSIS < 15 (0-50); LDL Cholesterol Calculated 125 mg/dL (<100); Potassium 4.3 mmol/L (3.4-5.1); Sodium 138 mmol/L (137-145); Total Protein 6.9 g/dL (6.3-8.2); Triglycerides 377 mg/dL (35-150)
[2023-02-05 20:24] LABS: Vitamin B12 Reflex MMA if <400 275 pg/mL (239-931)
[2023-02-11 00:08] LABS: Methylmalonic Acid,Serum 196 nmol/L (0-378)
== END ==
PROVIDERS: PCP Family Medicine; Visit Provider Family Medicine
DX: E78.2 Mixed hyperlipidemia (principal); I10 Essential (primary) hypertension; E53.8 Deficiency of other specified B group vitamins
CPT/HCPCS: 80053; 80061; 82607; 83921; 85025

== ENCOUNTER → 2023-05-29 11:05 | Outpatient (CLI) | payer MEDICARE, OTHER, SELFPAY ==
[2023-01-01 15:15] VITALS: BMI 26.6
--- NOTE | 2023-05-29 11:07 | DI.MG.S_ITS ---
BILATERAL DIGITAL SCREENING MAMMOGRAM 3D/2D WITH CAD: 05/29/2023 CLINICAL: Routine screening. Family history of breast cancer. Comparison is made to exams dated: 01/23/2017 mammogram, 10/25/2014 mammogram, and 01/10/2011 mammogram - [facility]. Both breasts are heterogeneously dense, which may obscure small masses (category c / 51-75% glandular tissue). Current study was also evaluated with a Computer Aided Detection (CAD) system. No significant masses, calcifications, or other findings are seen in either breast. There has been no significant interval change. IMPRESSION: NEGATIVE There is no mammographic evidence of malignancy. A 1 year screening mammogram is recommended. Based on the Tyrer Cuzick model (a risk assessment model) the patient's lifetime risk is 12.6% and her 10 year risk is 7.1%. According to the ACR, ACS, and NCCN guidelines, an annual breast MRI exam along with mammogram is recommended if the patient's lifetime risk is 20% or greater. This exam was interpreted at Station ID: [id number]. NOTE: For mammograms, a report in lay terms will be sent to the patient. Approximately 15% of breast malignancies will not be visualized mammographically. In the management of a palpable breast mass, a negative mammogram must not discourage biopsy of a clinically suspicious lesion. Electronically Signed By: Palmer arias/ismael:05/29/2023 15:54:16 letter sent: Normal Exam ACR BI-RADS Category 1: Negative [id number]
== END ==
LOC: MAMMO 11:05
PROVIDERS: PCP Family Medicine; Referring Provider Family Medicine; Visit Provider Family Medicine
DX: Z12.31 Encounter for screening mammogram for malignant neoplasm of breast (principal); Z80.3 Family history of malignant neoplasm of breast; R92.333 Mammographic heterogeneous density, bilateral breasts
CPT/HCPCS: 77063; 77067

== ENCOUNTER → 2023-07-31 09:33 | Outpatient (CLI) | payer MEDICARE, OTHER, SELFPAY ==
[2023-01-01 15:15] VITALS: BMI 26.6
[2023-07-31 20:12] LABS: Cholesterol 247 mg/dL (140-199); HDL Cholesterol 53 mg/dL (40-60); LDL Cholesterol Calculated 146 mg/dL (<100); Triglycerides 241 mg/dL (35-150)
[2023-07-31 21:07] LABS: Vitamin B12 945 pg/mL (239-931)
== END ==
PROVIDERS: PCP Family Medicine; Visit Provider Family Medicine
DX: E78.2 Mixed hyperlipidemia (principal); E53.8 Deficiency of other specified B group vitamins
CPT/HCPCS: 80061; 82607

== ENCOUNTER → 2023-10-22 11:08 | Outpatient (CLI) | payer MEDICARE, OTHER, SELFPAY ==
[2023-01-01 15:15] VITALS: BMI 26.6
--- NOTE | 2023-10-22 11:09 | DI.MRI.S_ITS ---
PROCEDURE: MR LUMBAR SPINE WO CON INDICATIONS: chronic lumbar radicuopathy left more than right TECHNIQUE: Noncontrast sagittal T1 spin echo and T2 fast echo, sagittal STIR, and T2 fast spin echo through the lumbar spine. In cases with scoliosis, additional coronal T2 fast spin echo may be performed. COMPARISON: None. FINDINGS: Image quality: Excellent. Alignment and Curvature: Mild anterolisthesis of L5 on S1. Bone Marrow: Mild Modic type 1 degenerative endplate changes at L3-L4. Marrow is of normal overall signal. No acute vertebral body compression fractures. Spinal Cord: Conus medullaris terminates at the L1-L2 level. Visualized cord demonstrates normal signal and size. Paraspinous Soft Tissues: No paravertebral masses. T12-L1: Normal appearance. L1-L2: Disc desiccation and mild height loss. Mild diffuse disc bulge. No central canal or neural foraminal stenosis. L2-L3: Disc desiccation and mild height loss. Mild diffuse disc bulge. No central canal or neural foraminal stenosis. L3-L4: Disc desiccation and moderate height loss. Mild diffuse disc bulge. Facet arthropathy and thickening of ligamentum flavum. Mild central canal stenosis. Mild to moderate bilateral neural foraminal stenosis. L4-L5: Disc desiccation and mild height loss. Mild diffuse disc bulge. Mild central canal stenosis. Facet arthropathy and thickening of ligamentum flavum. Mild left and no right neural foraminal stenosis. L5-S1: Disc desiccation and mild height loss. Facet arthropathy. No central canal stenosis. [id number] bilateral neural foraminal stenosis. IMPRESSION: Mild degenerative changes of the lumbar spine as described above. Dictated by: Xander Lugo M.D. on 10/22/2023 at 15:46 Approved by: Xander Lugo M.D. on 10/22/2023 at 15:49
== END ==
LOC: MRI 11:08
PROVIDERS: PCP Family Medicine; Referring Provider Family Medicine; Visit Provider Family Medicine
DX: M47.26 Other spondylosis with radiculopathy, lumbar region (principal); M47.27 Other spondylosis with radiculopathy, lumbosacral region; M51.16 Intervertebral disc disorders with radiculopathy, lumbar region; M48.061 Spinal stenosis, lumbar region without neurogenic claudication; M48.07 Spinal stenosis, lumbosacral region
CPT/HCPCS: 72148

== ENCOUNTER → 2024-04-08 10:00 | Outpatient (CLI) | payer MEDICARE, OTHER, SELFPAY ==
[2023-01-01 15:15] VITALS: BMI 26.6
[2024-04-08 20:05] LABS: Add Manual Diff / Slide Review NO; Basophils Absolute Auto 0 /uL (0-100); Basophils Percent Auto 0.1 % (0-2); Eosinophils Absolute Auto 100 /uL (0-450); Eosinophils Percent Auto 1.3 % (2-4); Hematocrit 39.8 % (36-46); Hemoglobin 13.5 g/dL (12.0-16.0); Lymphocytes Absolute Auto 2700 /uL (1100-4500); Mean Corpuscular HGB Conc 33.8 % (30-36); Mean Corpuscular Hemoglobin 33.2 PG (26-34); Mean Corpuscular Volume 98.1 fL (80-100); Monocytes Absolute Auto 800 /uL (0-900); Monocytes Percent Auto 10.2 % (3-14); Neutrophils Absolute Auto 4000 /uL (1500-7000); Neutrophils Percent Auto 52.4 % (50-75); Platelet Count 332 X10^3/uL (150-400); Red Blood Cell Count 4.06 X10^6/uL (4.0-5.2); Red Cell Distribution Width 12.8 % (11.6-14.8); White Blood Cell Count 7.6 X10^3/uL (4.5-11.0)
[2024-04-08 20:11] LABS: Alanine Aminotransferase 22 IU/L (<35); Albumin Globulin Ratio 1.3 (1.0-2.8); Alkaline Phosphatase 76 U/L (38-126); Aspartate Aminotransferase 26 IU/L (14-36); BUN Creatinine Ratio 20.4 (6-22); Bilirubin Total 0.9 mg/dL (0.2-1.3); Blood Urea Nitrogen 23 mg/dL (7-17); Calcium 10.3 mg/dL (8.4-10.2); Carbon Dioxide 30 mmol/L (22-32); Chloride 97 mmol/L (98-107); Cholesterol 260 mg/dL (140-199); Estimated Glomerular Filt Rate 53 mL/min (>60); Globulin 3.1 g/dL (1.7-4.1); Glucose 100 mg/dL (80-110); HDL Cholesterol 72 mg/dL (40-60); HEMOLYSIS < 15 (0-50); LDL Cholesterol Calculated 135 mg/dL (<100); Potassium 4.1 mmol/L (3.4-5.1); Sodium 131 mmol/L (137-145); Total Protein 7.1 g/dL (6.3-8.2); Triglycerides 266 mg/dL (35-150)
[2024-04-08 20:42] LABS: Thyroid Stimulating Hormone 2.12 uIU/mL (0.47-4.68)
[2024-04-08 21:01] LABS: Vitamin B12 881 pg/mL (239-931)
== END ==
PROVIDERS: PCP Family Medicine; Visit Provider Family Medicine
DX: E78.2 Mixed hyperlipidemia (principal); I10 Essential (primary) hypertension; E78.1 Pure hyperglyceridemia; E87.1 Hypo-osmolality and hyponatremia; D64.9 Anemia, unspecified; E53.8 Deficiency of other specified B group vitamins
CPT/HCPCS: 80053; 80061; 82607; 84443; 85025

== ENCOUNTER → 2024-04-29 11:05 | Outpatient (CLI) | payer MEDICARE, OTHER, SELFPAY ==
[2023-01-01 15:15] VITALS: BMI 26.6
[2024-04-29 19:25] LABS: BUN Creatinine Ratio 19.4 (6-22); Blood Urea Nitrogen 19 mg/dL (7-17); Calcium 10.3 mg/dL (8.4-10.2); Carbon Dioxide 33 mmol/L (22-32); Chloride 93 mmol/L (98-107); Estimated Glomerular Filt Rate > 60 mL/min (>60); Glucose 99 mg/dL (80-110); HEMOLYSIS 23 (0-50); Potassium 3.7 mmol/L (3.4-5.1); Sodium 132 mmol/L (137-145)
[2024-04-29 19:39] LABS: Vitamin D 25 Hydroxy (D3) < 12.8 ng/mL (30.0-100.0)
[2024-04-29 20:13] LABS: Sodium Urine Random 24 mmol/L (30-90)
[2024-05-03 15:10] LABS: Osmolality Urine 444 mOsmol/kg (.)
[2024-05-03 15:10] LABS: Osmolality, Serum 276 mOsmol/kg (280-301)
[2024-05-04 09:36] LABS: Calcium 10.5 mg/dL (8.7-10.3); Parathyroid Hormone, Intact 14 pg/mL (15-65)
[2024-05-04 13:39] LABS: Albumin 3.6 g/dL (2.9-4.4); Alpha-1-Globulin 0.2 g/dL (0.0-0.4); Alpha-2-Globulin 0.9 g/dL (0.4-1.0); Gamma Globulin 1.3 g/dL (0.4-1.8); Globulin Total 3.5 g/dL (2.2-3.9); Immunoglobulin A, Serum 125 mg/dL (87-352); Immunoglobulin G,Serum 1083 mg/dL (586-1602); Immunoglobulin M, Serum 135 mg/dL (26-217); Protein, Total 7.1 g/dL (6.0-8.5)
[2024-05-04 18:36] LABS: Free Kappa Lt Chains, Serum 24.2 mg/L (3.3-19.4)
== END ==
PROVIDERS: PCP Family Medicine; Visit Provider Family Medicine
DX: E83.52 Hypercalcemia (principal); E87.1 Hypo-osmolality and hyponatremia; I10 Essential (primary) hypertension; R94.4 Abnormal results of kidney function studies; D64.9 Anemia, unspecified; E78.1 Pure hyperglyceridemia
CPT/HCPCS: 80048; 82306; 82310; 82784; 83883; 83930; 83935; 83970; 84155; 84165; 84300; 86334

== ENCOUNTER → 2024-07-07 10:37 | Outpatient (CLI) | payer MEDICARE, OTHER, SELFPAY ==
[2023-01-01 15:15] VITALS: BMI 26.6
--- NOTE | 2024-07-07 10:38 | DI.MG.S_ITS ---
MM screening mammo BI: 07/07/2024. BI-RADS: 1 CLINICAL: 69-year old female for bilateral screening mammogram. Tyrer-Cuzick lifetime risk of 9.8%. Current reported family history of breast cancer: sister. History of ovarian cancer in one first-degree relative. PRIOR EXAMS 05/29/2023, 01/23/2017, 10/25/2014. MAMMOGRAPHY TECHNIQUE: 2D and 3D (tomosynthesis) digital mammographic views obtained, with additional images as needed for full coverage. Current study was also evaluated with a Computer Aided Detection (CAD) system. DENSITY C. The breasts are heterogeneously dense, which may obscure small masses. MAMMOGRAPHY FINDINGS Bilateral: Typically-benign vascular calcifications noted. No suspicious mass, asymmetry, microcalcification, or other abnormality seen. No significant change from comparison. IMPRESSION: * No evidence of malignancy. RECOMMENDATIONS Bilateral * Annual screening mammography. OVERALL ASSESSMENT CATEGORY BI-RADS-1: Negative. The [employer] recommends annual screening mammography beginning at age 40 for women with average risk of breast cancer. ELECTRONICALLY SIGNED: Susan Araujo M.D. on 07/07/2024 at 02:19:09 PM PT Interpreting Station ID: [id number]
== END ==
PROVIDERS: PCP Family Medicine; Referring Provider Family Medicine; Visit Provider Family Medicine
DX: Z12.31 Encounter for screening mammogram for malignant neoplasm of breast (principal); R92.333 Mammographic heterogeneous density, bilateral breasts; Z80.41 Family history of malignant neoplasm of ovary
CPT/HCPCS: 77063; 77067

== ENCOUNTER → 2024-07-13 13:06 | Outpatient (CLI) | payer MEDICARE, OTHER, SELFPAY ==
[2023-01-01 15:15] VITALS: BMI 26.6
[2024-07-13 18:50] LABS: Add Manual Diff / Slide Review NO; Basophils Absolute Auto 0 /uL (0-100); Basophils Percent Auto 0.7 % (0-2); Eosinophils Absolute Auto 100 /uL (0-450); Eosinophils Percent Auto 0.9 % (2-4); Hemoglobin 13.7 g/dL (12.0-16.0); Lymphocytes Absolute Auto 2100 /uL (1100-4500); Lymphocytes Percent Auto 32.1 % (25-40); Mean Corpuscular HGB Conc 33.4 % (30-36); Mean Corpuscular Hemoglobin 31.1 PG (26-34); Monocytes Absolute Auto 500 /uL (0-900); Monocytes Percent Auto 6.8 % (3-14); Neutrophils Absolute Auto 4000 /uL (1500-7000); Neutrophils Percent Auto 59.5 % (50-75); Platelet Count 301 X10^3/uL (150-400); Red Blood Cell Count 4.41 X10^6/uL (4.0-5.2); Red Cell Distribution Width 12.2 % (11.6-14.8); White Blood Cell Count 6.7 X10^3/uL (4.5-11.0)
[2024-07-13 18:53] LABS: Erythrocyte Sedimentation Rate 15 MM/HR (0-20)
[2024-07-13 18:57] LABS: Alanine Aminotransferase 31 IU/L (<35); Albumin 4.4 g/dL (3.5-5.0); Albumin Globulin Ratio 1.5 (1.0-2.8); Alkaline Phosphatase 72 U/L (38-126); Aspartate Aminotransferase 72 IU/L (14-36); BUN Creatinine Ratio 20.2 (6-22); Bilirubin Total 0.7 mg/dL (0.2-1.3); Blood Urea Nitrogen 18 mg/dL (7-17); Calcium 9.6 mg/dL (8.4-10.2); Carbon Dioxide 28 mmol/L (22-32); Chloride 101 mmol/L (98-107); Estimated Glomerular Filt Rate > 60 mL/min (>60); Glucose 134 mg/dL (80-110); HEMOLYSIS 19 (0-50); Potassium 3.6 mmol/L (3.4-5.1); Sodium 137 mmol/L (137-145); Total Protein 7.4 g/dL (6.3-8.2)
[2024-07-13 19:09] LABS: Vitamin D 25 Hydroxy (D3) 23.8 ng/mL (30.0-100.0)
[2024-07-13 20:03] LABS: C-Reactive Protein Quant 0.7 mg/dL (<1.0)
[2024-07-16 12:40] LABS: Albumin 3.5 g/dL (2.9-4.4); Alpha-1-Globulin 0.3 g/dL (0.0-0.4); Alpha-2-Globulin 0.7 g/dL (0.4-1.0); Gamma Globulin 1.1 g/dL (0.4-1.8); Protein, Total 6.5 g/dL (6.0-8.5)
== END ==
PROVIDERS: PCP Family Medicine; Visit Provider Family Medicine
DX: E83.52 Hypercalcemia (principal); R94.4 Abnormal results of kidney function studies; I10 Essential (primary) hypertension; E55.9 Vitamin D deficiency, unspecified; E87.1 Hypo-osmolality and hyponatremia; R63.4 Abnormal weight loss; M54.16 Radiculopathy, lumbar region
CPT/HCPCS: 80053; 82306; 82533; 84155; 84165; 85025; 85651; 86140

== ENCOUNTER → 2025-01-13 11:29 | Outpatient (CLI) | payer MEDICARE, OTHER, SELFPAY ==
[2024-09-20 10:17] VITALS: BMI 26.6
[2025-01-13 19:21] LABS: HEMOLYSIS < 15 (0-50); Iron 89 ug/dL (37-170)
[2025-01-13 19:27] LABS: Alanine Aminotransferase 15 IU/L (<35); Albumin 4.3 g/dL (3.5-5.0); Albumin Globulin Ratio 1.5 (1.0-2.8); Alkaline Phosphatase 96 U/L (38-126); Blood Urea Nitrogen 25 mg/dL (7-17); Calcium 9.7 mg/dL (8.4-10.2); Carbon Dioxide 28 mmol/L (22-32); Chloride 98 mmol/L (98-107); Estimated Glomerular Filt Rate > 60 mL/min (>60); Globulin 2.9 g/dL (1.7-4.1); Glucose 101 mg/dL (70-99); HEMOLYSIS 20 (0-50); Potassium 4.3 mmol/L (3.4-5.1); Sodium 135 mmol/L (137-145); Total Protein 7.2 g/dL (6.3-8.2)
[2025-01-13 19:31] LABS: Percent Iron Saturation 32 % (15-50); Total Iron Binding Capacity 276 ug/dL (265-497); Transferrin 248 mg/dL (206-381)
[2025-01-13 19:41] LABS: Vitamin D 25 Hydroxy (D3) 27.8 ng/mL (30.0-100.0)
[2025-01-13 19:43] LABS: Hemoglobin A1C% w Est Avg Glu 5.4 % (4.0-6.0)
[2025-01-13 20:01] LABS: Ferritin 52 ng/mL (11-264)
[2025-01-15 05:14] LABS: Hepatitis A Antibody IgM Negative (Negative); Hepatitis B Core Antibody IgM Negative (Negative); Hepatitis C Antibody Non Reactive (Non Reactive)
== END ==
PROVIDERS: PCP Family Medicine; Visit Provider Family Medicine
DX: K75.9 Inflammatory liver disease, unspecified (principal); E83.52 Hypercalcemia; R73.9 Hyperglycemia, unspecified; R94.4 Abnormal results of kidney function studies; R42 Dizziness and giddiness; E87.1 Hypo-osmolality and hyponatremia; I10 Essential (primary) hypertension; E55.9 Vitamin D deficiency, unspecified
CPT/HCPCS: 80053; 80074; 82306; 82728; 83036; 83540; 83550